=== PATIENT | male | born 1955 | race Caucasian/White ===

== ENCOUNTER 2020-03-19 14:00 | Outpatient (REF) | payer OTHER, SELFPAY | END 2020-03-19 14:01 | disposition home or self-care (01) | LOC: HO.LAB 14:00 | PROVIDERS: Visit Provider Internal Medicine | DX: Z20.828 Contact with and (suspected) exposure to other viral communicable diseases (principal) | CPT/HCPCS: 36415; C9803; U0003 ==

== ENCOUNTER 2020-05-12 10:53 | Outpatient (REF) | payer OTHER, SELFPAY | END 2020-05-12 10:54 | disposition home or self-care (01) | LOC: HO.LAB 10:53 | PROVIDERS: Visit Provider Internal Medicine | DX: Z20.822 Contact with and (suspected) exposure to COVID-19 (principal) | CPT/HCPCS: 36415; C9803; U0003; U0005 ==

== ENCOUNTER 2020-12-01 16:18 | Emergency (ER) | payer OTHER, SELFPAY ==
--- NOTE | ~2020-12-01 | XR_ITS ---
EXAMINATION: SINGLE VIEW CHEST, LEFT SHOULDER CLINICAL INFORMATION: Chest and shoulder pain COMPARISON: Chest radiograph 10/24/2019 TECHNIQUE: Single view chest, 5 views left shoulder FINDINGS: No significant abnormalities seen involving the heart, lungs, mediastinum or bony thorax. No significant bone joint or soft tissue abnormality seen involving the left shoulder. XR/XR shoulder LT min 2V IMPRESSION: Negative exams
--- NOTE | ~2020-12-01 | XR_ITS ---
EXAMINATION: SINGLE VIEW CHEST, LEFT SHOULDER CLINICAL INFORMATION: Chest and shoulder pain COMPARISON: Chest radiograph 10/24/2019 TECHNIQUE: Single view chest, 5 views left shoulder FINDINGS: No significant abnormalities seen involving the heart, lungs, mediastinum or bony thorax. No significant bone joint or soft tissue abnormality seen involving the left shoulder. XR/XR chest 1V IMPRESSION: Negative exams
[2020-12-01 17:42] VITALS: BP 149/75; PULSE 56; RESP 18; TEMP 36.8; O2SAT 99; BMI 25.8
[2020-12-01 17:59] LABS: MANUAL DIFF FLAG NO
[2020-12-01 18:01] LABS: Basophils Absolute Auto 0.1 X10*3/uL (0.0-0.2); Basophils Percent Auto 0.6 % (0-2); Eosinophils Absolute Auto 0.2 X10*3/uL (0.0-0.4); Eosinophils Percent Auto 2.3 % (0-4); Hematocrit 44.2 % (42-52); Hemoglobin 14.7 g/dl (14.0-18.0); Imm Gran Abs Auto 0.01 X10*3/uL (0.00-0.03); Imm Gran Pct Auto 0.1 % (0.0-0.4); Lymphocytes Absolute Auto 2.3 X10*3/uL (1.2-4.9); Lymphocytes Percent Auto 29.5 % (20-40); Mean Corpuscular HGB Conc 33.3 g/dl (31.0-36.0); Mean Corpuscular Hemoglobin 29.5 pg (27.0-33.0); Mean Corpuscular Volume 88.8 fL (80-98); Mean Platelet Volume 9.3 fL (9.4-12.4); Monocytes Absolute Auto 0.7 X10*3/uL (0.1-1.2); Monocytes Percent Auto 8.8 % (2-11); Neutrophils Absolute Auto 4.6 X10*3/uL (2.0-8.3); Neutrophils Percent Auto 58.7 % (45-73); Platelet Count 217 X10*3/uL (160-400); Red Blood Count 4.98 X10*6/uL (4.60-5.80); White Blood Count 7.8 X10*3/uL (4.8-10.8)
[2020-12-01 18:22] LABS: Anion Gap 11 (12-20); Blood Urea Nitrogen 14 mg/dL (9-16); Calcium 8.9 mg/dL (8.4-10.2); Carbon Dioxide 24 mmol/L (22-29); Chloride 104 mmol/L (96-108); Creatinine Clr Calc Pharmacy 51.3; Estimated Glomerular Filt Rate 57; Glucose Random 326 mg/dL (60-115); Potassium 4.2 mmol/L (3.3-5.1); Sodium 135 mmol/L (135-145)
--- NOTE | 2020-12-01 19:22 | ECG_ITS ---
Test Reason : DIZZY Blood Pressure : / mmHG Vent. Rate : 050 BPM Atrial Rate : 050 BPM P-R Int : 182 ms QRS Dur : 090 ms QT Int : 468 ms P-R-T Axes : 066 -19 041 degrees QTc Int : 426 ms Sinus bradycardia Otherwise normal ECG When compared with ECG of 24-OCT-2019 11:13, No significant change was found Referred By: Jose Finch Electronically Signed By:MARIALUISA STOREY
[2020-12-01 20:14] LABS: Troponin-I High Sensitivity 9.9 ng/L (<3.5-35.0)
--- NOTE | 2020-12-01 22:47 | ED_ITS ---
HPI - Eye Problem General Chief complaint: Eye Problems Stated complaint: eye swelling, CP Time Seen by Provider: 12/01/20 19:09 Source: patient Mode of arrival: ambulatory Limitations: no limitations History of Present Illness HPI Narrative: Patient presents to ED for multiple complaints. Patient presents to ED for left upper eyelid pain with redness and swelling for the past 4 days.. Patient denies any blurry vision or eye pain. Patient denies any recent trauma to the eye, change in vision, loss of vision. Patient has secondary complaint is a mild neck pain radiating to left shoulder and chest for the past 4 days. Patient denies crushing like chest pain or shortness of breath. Patient came to ED to be evaluated due to cardiac history. Related Data Previous Rx's Medication Instructions Recorded amoxicillin 875 mg-potassium 1 tab PO Q12H 10 Days #20 tab 12/01/20 clavulanate 125 mg tablet (Augmentin) sulfamethoxazole 800 1 tab PO Q12H 5 Days #10 tab 12/01/20 mg-trimethoprim 160 mg tablet (Bactrim DS) Allergies Allergy/AdvReac Type Severity Reaction Status Date / Time No Known Allergies Allergy Verified 12/01/20 17:41 Review of Systems Constitutional: Constitutional: Reports as per HPI and Reports no additional constitutional complaints Eyes: Eyes: Reports as per HPI and Reports no additional eye complaints Comments: left upper eyelid pain Cardiovascular: Cardiovascular: Reports as per HPI and Reports no additional c ardiovascular complaints Respiratory: Respiratory: Reports as per HPI and Reports no additional respiratory complaints Gastrointestinal: Gastrointestinal: Reports as per HPI and Reports no add itional gastrointestinal complaints Genitourinary: Genitourinary: Reports no additional male genitourinary complaints and Reports as per HPI Musculoskeletal: Musculoskeletal: Reports no additional musculoskeletal complaints and Reports as per HPI Integumentary/Breasts: Skin/Breast: Reports system reviewed and no additional complaints, except as docu and Reports as per HPI Neurologic: Reports system reviewed and no additional complaints, except as documented and Reports as per HPI Psychiatric: Psychiatric: Reports no additional psychiatric complaints and Reports as per HPI [facility] Social History Social History Advance Directives: No Advance Directives Information Provided: Yes Physical Exam Vital Signs: Vital Signs: Last Vital Signs Temp 98.2 F 12/01/20 17:42 Pulse 56 12/01/20 17:42 Resp 18 12/01/20 17:42 BP 149/75 H 12/01/20 17:42 Pulse Ox 99 12/01/20 17:42 Body Mass Index 25.8 Const: General: cooperative, healthy appearing, comfortable, no acute distress, well developed and alert Orientation/consciousness: patient oriented x3 HENMT: Head: Yes normal to inspection, Yes No palpable skull fracture present, Yes normocephalic, Yes atraumatic and No abrasion Ears: hearing grossly normal bilaterally, external ears normal, TM's normal bilaterally, EAC's normal, mastoids normal and no periauricular adenopathy Eyes: Eyes/upper lids images: 1. Left upper eyelid redness and swelling. Negative for style on palpation or observtion. Negative for photophobia. Negative for erythema, conjunctiva, or sclera. Neck: Neck: Yes normal visual inspection, Yes full ROM, Yes no ly mphadenopathy, Yes no meningeal signs, Yes trachea midline, Yes supple and No tender Chest: Chest palpation & inspection: normal inspection of the chest and normal palpation of entire chest wall Resp: Effort & Inspection: normal respiratory effort and able to speak in complete sentences Auscultation: clear to auscultation bilaterally Cardio: Jugular venous distension: no JVD Heart sounds: S1 normal heart sound present and S2 normal heart sound present GI: Inspection: Yes normal to inspection and No abdominal wall ecchymosis Palpation (GI): Soft to palpation, not firm, nontender, no guarding and not rigid : General: No CVA tenderness and Yes no CVA tenderness Back/Spine/Pelvis: Back: no CVA tenderness, No CVA tenderness and No back tenderness Skin: General skin exam: no rashes or lesions noted and elasticity normal Neuro: General: patient oriented x3, gait normal, no meningeal signs and CN's II-XI intact bilaterally Cranial nerves: Yes CN's II-XII intact bilaterally Extrem: General: Yes normal to inspection and Yes full ROM Psych: Appearance: grossly normal, well kempt and not disheveled Course Course Course Narrative: Eye exam indicate preseptal cellulitis. Patient denies any discomfort. Patient states chest pain only a 1. Due to age will do cardiac evaluation. Reevaluation(s) Reevaluation #1: EKG negative STEMI. First troponin negative chest x-ray shoulder x-ray normal. Time: 19:47 Reevaluation #2: Second troponin negative. Not suspecting PE. Patient denies any pleuritic chest pain or history of blood clots. Patient is not tachycardic, hypoxic, or hypotensive. Patient denies any recent travel, recent surgery, recent trauma or MDM - Eye Problem MDM Narrative Medical decision making narrative: Preseptal cellulitis Lab Data Result diagrams: 12/01/20 17:52 12/01/20 17:52 Labs: Lab Results 12/01/20 12/01/20 12/01/20 Range/Units 17:52 17:52 19:47 WBC 7.8 (4.8-10.8) X10*3/uL RBC 4.98 (4.60-5.80) X10*6/uL Hgb 14.7 (14.0-18.0) g/dl Hct 44.2 (42-52) % MCV 88.8 (80-98) fL MCH 29.5 (27.0-33.0) pg MCHC 33.3 (31.0-36.0) g/dl RDW 12.0 (11.0-16.0) % Plt Count 217 (160-400) X10*3/uL MPV 9.3 L (9.4-12.4) fL Immature Gran % (Auto) 0.1 (0.0-0.4) % Neut % (Auto) 58.7 (45-73) % Lymph % (Auto) 29.5 (20-40) % [place] % (Auto) 8.8 (2-11) % Eos % (Auto) 2.3 (0-4) % Baso % (Auto) 0.6 (0-2) % Lymph # (Auto) 2.3 (1.2-4.9) X10*3/uL [place] # (Auto) 0.7 (0.1-1.2) X10*3/uL Eos # (Auto) 0.2 (0.0-0.4) X10*3/uL Baso # (Auto) 0.1 (0.0-0.2) X10*3/uL Abs Immat Gran (auto) 0.01 (0.00-0.03) X10*3/uL Absolute Neuts (auto) 4.6 (2.0-8.3) X10*3/uL Absolute Nucleated RBC 0.000 (0.0-0.012) X10*3/uL Nucleated RBC % (auto) 0.0 (0.0-0.2) /100WBC Sodium 135 (135-145) mmol/L Potassium 4.2 (3.3-5.1) mmol/L Chloride 104 (96-108) mmol/L Carbon Dioxide 24 (22-29) mmol/L Anion Gap 11 L (12-20) BUN 14 (9-16) mg/dL Creatinine 1.26 (0.5-1.4) mg/dL Estim Creat Clear Calc 51.3 Estimated GFR 57 Random Glucose 326 H (60-115) mg/dL Calcium 8.9 (8.4-10.2) mg/dL Troponin I High Sens 9.9 (<3.5-35.0) ng/L 12/01/20 Range/Units 21:59 WBC (4.8-10.8) X10*3/uL RBC (4.60-5.80) X10*6/uL Hgb (14.0-18.0) g/dl Hct (42-52) % MCV (80-98) fL MCH (27.0-33.0) pg MCHC (31.0-36.0) g/dl RDW (11.0-16.0) % Plt Count (160-400) X10*3/uL MPV (9.4-12.4) fL Immature Gran % (Auto) (0.0-0.4) % Neut % (Auto) (45-73) % Lymph % (Auto) (20-40) % [place] % (Auto) (2-11) % Eos % (Auto) (0-4) % Baso % (Auto) (0-2) % Lymph # (Auto) (1.2-4.9) X10*3/uL [place] # (Auto) (0.1-1.2) X10*3/uL Eos # (Auto) (0.0-0.4) X10*3/uL Baso # (Auto) (0.0-0.2) X10*3/uL Abs Immat Gran (auto) (0.00-0.03) X10*3/uL Absolute Neuts (auto) (2.0-8.3) X10*3/uL Absolute Nucleated RBC (0.0-0.012) X10*3/uL Nucleated RBC % (auto) (0.0-0.2) /100WBC Sodium (135-145) mmol/L Potassium (3.3-5.1) mmol/L Chloride (96-108) mmol/L Carbon Dioxide (22-29) mmol/L Anion Gap (12-20) BUN (9-16) mg/dL Creatinine (0.5-1.4) mg/dL Estim Creat Clear Calc Estimated GFR Random Glucose (60-115) mg/dL Calcium (8.4-10.2) mg/dL Troponin I High Sens 10.0 (<3.5-35.0) ng/L ECG Data Interpretation: Sinus bradycardia. Ventricular rate 50. DC interval 182. QRS 90. QTC 426. Negative STEMI Discharge Plan Discharge Clinical Impression: Periorbital cellulitis, Chest pain, atypical Patient Disposition: Home, Self-Care Instructions: Chest Pain (ED), Periorbital Cellulitis in Adults (ED) Additional Instructions: Chaves an?lisis de kaya y chaves electrocardiograma resultaron negativos para un ataque card?aco. Se le khadra? de haley con antibi?ticos orales para la infecci?n del p?rpado. Regrese al servicio de urgencias por cualquier inflamaci?n de las extremidades inferiores, tos con kaya, dificultad para respirar, empeoramiento del dolor en el pecho o cambio o p?rdida de la visi?n ocular, aumento de la hi nchaz?n del p?rpado, empeoramiento del dolor ocular o cualquier otro s?ntoma preocupante. Kath un seguimiento con chaves proveedor de atenci?n primaria. Se recomienda ye compresa tibia 4 veces al d?a chino 15 minutos en el p?rpado. Prescriptions: New amoxicillin-pot clavulanate [Augmentin] 875-125 mg tablet 1 tab PO Q12H 10 Days Qty: 20 RF: 0 sulfamethoxazole-trimethoprim [Bactrim DS] 800-160 mg tablet 1 tab PO Q12H 5 Days Qty: 10 RF: 0 Interventions: ED Discharge Assessment Last Done: 12/01/20 23:49 Discharge Date/Time: 12/01/20 23:51 Print Language: Honduran
== END 2020-12-01 23:51 | disposition home or self-care (01) ==
PROVIDERS: Physician Assistant; Emergency Provider Emergency Medicine Emergency Medical Services; PCP Internal Medicine Geriatric Medicine
DX: L03.213 Periorbital cellulitis (principal); R07.89 Other chest pain; M25.512 Pain in left shoulder; M25.511 Pain in right shoulder; Z79.899 Other long term (current) drug therapy
CPT/HCPCS: 36415; 71045; 73030; 80048; 84484; 85025; 93005; 99283; 99284

== ENCOUNTER 2021-02-06 12:56 | Inpatient (IN) | payer OTHER, SELFPAY ==
--- NOTE | 2021-02-06 | ECG_ITS ---
Test Reason : CP Blood Pressure : / mmHG Vent. Rate : 096 BPM Atrial Rate : 096 BPM P-R Int : 132 ms QRS Dur : 126 ms QT Int : 364 ms P-R-T Axes : 055 -64 054 degrees QTc Int : 459 ms Normal sinus rhythm Right bundle branch block Left anterior fascicular block Bifascicular block Minimal voltage criteria for LVH, may be normal variant ( R in aVL ) Abnormal ECG When compared with ECG of 01-DEC-2020 19:53, Vent. rate has increased BY 46 BPM (RBBB and left anterior fascicular block) is now Present Referred By: Generic ED Physician Electronically Signed By:ALLY CHOUDHURY MD
--- NOTE | ~2021-02-06 | CT_ITS ---
EXAMINATION: CTA CHEST. CT ABDOMEN AND PELVIS WITH CONTRAST. CLINICAL INFORMATION: Chest pain and back pain. COMPARISON: None TECHNIQUE: 5 mm thin axial and reformatted 3 minutes thin sagittal and coronal images of chest were obtained with IV 85 mL Omnipaque 350 contrast. Subsequently axial 5 minutes thin and reformatted 3 minutes thin sagittal coronal images of abdomen pelvis were obtained. DLP 727. FINDINGS: Chest: There is good opacification of pulmonary artery and its branches without any intraluminal filling defect. The thoracic aorta is of normal caliber. No aneurysm or dissection seen.Central trachea and the bronchi are widely patent. No abnormal size mediastinal mass or lymph nodes seen. The heart size is normal no pedicle effusion seen. There are coronary artery calcifications present. The lungs are well-expanded and clear of acute process. There is no evidence of pleural effusion or thickening. No calcified pleural plaques seen. There are no abnormal axillary lymph nodes. The chest wall is is unremarkable. Abdomen and pelvis: The liver is normal size, shape and contour and density. No focal lesion or intrahepatic ductal dilatation seen. The gallbladder is unremarkable. Visualized spleen, pancreas and bilateral adrenal glands unremarkable. Both kidneys nephrograms are slightly striated with bilateral perinephric stranding no radiopaque calculi or hydronephrosis seen. Suspect partially exophytic lower pole right renal cysts. There is scattered stool, gas seen throughout the colon without distention. The small bowel loops are normal caliber. Appendix is not seen well. The stomach is nondistended. Suspect small hiatal hernia. There is mild rectal wall thickening. The sigmoid colon is unremarkable. The abdominal aorta is of normal caliber with mild sclerotic calcification. No retrobulbar lymph nodes or mass seen. The abdominal wall appears unremarkable. Imaging through the pelvis reveals enlarged prostate gland with a soft tissue mass of the base of bladder likely extension of prostate gland. There is a small urinary bladder caliber with diffuse bladder wall thickening measuring 9 mm. There is no free fluid. No abnormal pelvic or inguinal lymph nodes seen. No gross bony abnormality. CT/CT angio chest PE protocol IMPRESSION: No evidence of PE. No evidence aortic dissection or aneurysm. The lungs are clear. The moderate-sized mass at the base of the urinary bladder likely extension of enlarged prostate gland. There is diffuse bladder wall thickening with a small caliber bladder. There are striated bilateral nephrograms suspicious for inflammatory process. No infarct or acute nephronia seen. There is moderate bilateral perinephric stranding. Recommend urology consult. There is nonspecific mild rectal wall thickening.
[2021-02-06 13:03] VITALS: BP 157/83; PULSE 101; RESP 18; TEMP 38.6; O2SAT 98; BMI 26.6
--- NOTE | 2021-02-06 13:34 | ED.FEVER ---
HPI - Fever General Chief Complaint: General Medical Stated Complaint: chest pain headache body aches fever Time Seen by Provider: 02/06/21 13:21 Source: patient and family Mode of arrival: ambulatory Limitations: no limitations History of Present Illness MD elicited complaint: fever, malaise and weakness Pertinent past history: diabetes Onset (ago): day(s) (2) Exacerbating factors: nothing Relieving factors: nothing Associated symptoms: chills, myalgias, headache, chest pain, abdominal pain, nausea, dysuria and back/flank pain Treatments prior to arrival fever: none Related Data Home Medications Medication Instructions Recorded Confirmed amlodipine 5 mg tablet 1 tab PO DAILY 02/06/21 02/06/21 aspirin 81 mg chewable tablet 1 tab PO DAILY 02/06/21 02/06/21 atorvastatin 80 mg tablet 1 tab PO BEDTIME 02/06/21 02/06/21 ezetimibe 10 mg tablet 1 tab PO DAILY 02/06/21 02/06/21 glipizide 5 mg tablet 1 tab PO BID 02/06/21 02/06/21 insulin glargine 100 unit/mL (3 50 unit SUBCUT BEDTIME 02/06/21 02/06/21 mL) subcutaneous pen (Lantus Solostar U-100 Insulin) lisinopril 5 mg tablet 1 tab PO DAILY 02/06/21 02/06/21 metformin 500 mg tablet 2 tab PO BID 02/06/21 02/06/21 metoprolol succinate 25 mg 1 tab PO DAILY 02/06/21 02/06/21 tablet,extended release 24 hr ticagrelor 90 mg tablet (Brilinta) 1 tab PO BID 02/06/21 02/06/21 Allergies Allergy/AdvReac Type Severity Reaction Status Date / Time No Known Allergies Allergy Verified 12/01/20 17:41 Review of Systems Review of Systems: Constitutional : No Weight loss, pos Fever, pos Chills, pos Fatigue, pos Malaise ENT/Mouth : No sore throat, No Rhinorrhea Eyes: No Eye Pain, No Swelling, No Redness Cardiovascular : pos Chest Pain, No SOB, No Dyspnea on Exertion, No Orthopnea, No Edema, No Palpitations Respiratory : No Cough, No Sputum, No Wheezing Gastrointestinal :pos Nausea, No Vomiting, No Diarrhea, No Constipation, pos abdominal Pain, No Hematochezia, No Melena Genitourinary : pos Dysuria, pos Urinary Frequency, No Hematuria, Musculoskeletal : No joint pain, pos Myalgias, No Joint Swelling Skin : No Skin Lesions, No rash Neuro : pos Weakness, No Numbness, No Dizziness, No Headache Psych : No Anxiety/Panic, No Depression Heme/Lymph: No Bruising, No Bleeding,No Lymphadenopathy Endocrine : No Polyuria, No Polydipsia All other systems reviewed and are negative [facility] Past Medical History Attestation statement: The following information was validated with the patient. Medical History (Updated 02/06/21 @ 15:58 by Yasemin Wahl DO) CAD (coronary artery disease) Diabetes Social History Social History Alcohol intake: current Alcohol intake frequency: holidays/special occasions only Patient Tobacco Use Status: Never used Tobacco Use of substances other than those prescribed or required for medical reasons: No Advance Directives: No Advance Directives Information Provided: No Physical Exam Vital Signs: Vital Signs: Last Vital Signs Temp 101.4 F H 02/06/21 13:03 Pulse 96 02/06/21 14:00 Resp 21 H 02/06/21 14:00 BP 144/79 H 02/06/21 14:00 Pulse Ox 99 02/06/21 14:00 Body Mass Index 26.6 Appearance: Alert. Oriented X3. No acute distress. Eyes: Pupils equal, round and reactive to light. ENT: Pharynx normal. Neck: Normal inspection. Neck supple. CVS: tachcyardic heart rate and rhythm. Pulses normal. Respiratory: No respiratory distress. Breath sounds normal. Abdomen: Soft and nontender. Skin: Skin warm and dry. Normal skin color. Normal skin turgor. Extremities: No lower extremity edema. No calf ttp Neuro: Oriented X 3. No motor deficit. No sensory deficit. Course Course Course Narrative: given findings admit for IV antibiotics for pyelonephritis/prostatitis MDM - Fever MDM Narrative Medical decision making narrative: 65 yo male with hx of DM, CAD s/p PCI here with c/o fevers, chest pain, myalgia, L flank pain and dysuria he has a new RBBB at this time possible UTI/stone vs PE/pneumonia will obtain labs, cultures, tylenol, IVF, empiric levofloxacin - CTA given chest pain and new onset RBBB and CT scan for L flank pain to evaluate for stone. Dispo per results and findings. Lab Data Result diagrams: 02/06/21 13:33 02/06/21 13:33 Labs: Lab Results 02/06/21 02/06/21 02/06/21 Range/Units 13:33 13:33 13:33 WBC 18.6 H (4.8-10.8) X10*3/uL RBC 5.20 (4.60-5.80) X10*6/uL Hgb 15.5 (14.0-18.0) g/dl Hct 45.2 (42.0-52.0) % MCV 86.9 (80.0-98.0) fL MCH 29.8 (27.0-33.0) pg MCHC 34.3 (31.0-36.0) g/dl RDW 13.2 (11.0-16.0) % Plt Count 137 L (160-400) X10*3/uL MPV 9.8 (9.4-12.4) fL Immature Gran % (Auto) 1.8 H (0.0-0.4) % Neut % (Auto) 92.2 H (45-73) % Lymph % (Auto) 2.5 L (20-40) % [place] % (Auto) 3.2 (2-11) % Eos % (Auto) 0.1 (0-4) % Baso % (Auto) 0.2 (0-2) % Lymph # (Auto) 0.5 L (1.2-4.9) X10*3/uL [place] # (Auto) 0.6 (0.1-1.2) X10*3/uL Eos # (Auto) 0.0 (0.0-0.4) X10*3/uL Baso # (Auto) 0.0 (0.0-0.2) X10*3/uL Abs Immat Gran (auto) 0.34 H (0.00-0.03) X10*3/uL Absolute Neuts (auto) 17.1 H (2.0-8.3) x10*3/uL Absolute Nucleated RBC 0.000 (0.0-0.012) X10*3/uL Nucleated RBC % (auto) 0.0 (0.0-0.2) /100WBC Smear Tech's Comments VERIFIED PT (9.9-13.0) SEC INR (0.9-1.1) APTT (24.1-38.0) SEC Sodium 131 L (135-145) mmol/L Potassium 3.9 (3.3-5.1) mmol/L Chloride 96 (96-108) mmol/L Carbon Dioxide 23 (22-29) mmol/L Anion Gap 16 (12-20) BUN 19 H (9-16) mg/dL Creatinine 1.42 H (0.5-1.4) mg/dL Estim Creat Clear Calc 43.9 Estimated GFR 50 Random Glucose 195 H D (60-115) mg/dL Lactic Acid 3.1 H* (0.5-2.0) mmol/L Calcium 9.1 (8.4-10.2) mg/dL Magnesium 1.6 (1.6-2.6) mg/dL Total Bilirubin 1.7 H (0.0-1.0) mg/dL Direct Bilirubin 0.8 H (0.0-0.5) mg/dL AST 16 (5-37) U/L ALT 19 (0-40) U/L Alkaline Phosphatase 88 (39-117) U/L Troponin I High Sens (<3.5-35.0) ng/L Total Protein 7.4 (6.5-8.0) g/dL Albumin 4.3 (3.5-5.0) g/dL Lipase 30 (8-78) U/L Urine Color Urine Appearance Urine pH (5.0-8.0) Ur Specific [place] (1.005-1.025) Urine Protein (NEG-TRACE) MG/DL Urine Glucose (UA) (NEG) MG/DL Urine Ketones (NEG) MG/DL Urine Blood (NEG) Urine Nitrite (NEG) Ur Leukocyte Esterase (NEG) Urine RBC (0) /HPF Urine WBC (0-4) /HPF Ur Squamous Epith Cells /LPF Urine Bacteria /LPF COVID-19 (SEBAS) (Negative) COVID-19 Clin Com 02/06/21 02/06/21 02/06/21 Range/Units 13:33 13:34 13:34 WBC (4.8-10.8) X10*3/uL RBC (4.60-5.80) X10*6/uL Hgb (14.0-18.0) g/dl Hct (42.0-52.0) % MCV (80.0-98.0) fL MCH (27.0-33.0) pg MCHC (31.0-36.0) g/dl RDW (11.0-16.0) % Plt Count (160-400) X10*3/uL MPV (9.4-12.4) fL Immature Gran % (Auto) (0.0-0.4) % Neut % (Auto) (45-73) % Lymph % (Auto) (20-40) % [place] % (Auto) (2-11) % Eos % (Auto) (0-4) % Baso % (Auto) (0-2) % Lymph # (Auto) (1.2-4.9) X10*3/uL [place] # (Auto) (0.1-1.2) X10*3/uL Eos # (Auto) (0.0-0.4) X10*3/uL Baso # (Auto) (0.0-0.2) X10*3/uL Abs Immat Gran (auto) (0.00-0.03) X10*3/uL Absolute Neuts (auto) (2.0-8.3) x10*3/uL Absolute Nucleated RBC (0.0-0.012) X10*3/uL Nucleated RBC % (auto) (0.0-0.2) /100WBC Smear Tech's Comments PT 18.8 H (9.9-13.0) SEC INR 1.6 H (0.9-1.1) APTT 32.1 (24.1-38.0) SEC Sodium (135-145) mmol/L Potassium (3.3-5.1) mmol/L Chloride (96-108) mmol/L Carbon Dioxide (22-29) mmol/L Anion Gap (12-20) BUN (9-16) mg/dL Creatinine (0.5-1.4) mg/dL Estim Creat Clear Calc Estimated GFR Random Glucose (60-115) mg/dL Lactic Acid (0.5-2.0) mmol/L Calcium (8.4-10.2) mg/dL Magnesium (1.6-2.6) mg/dL Total Bilirubin (0.0-1.0) mg/dL Direct Bilirubin (0.0-0.5) mg/dL AST (5-37) U/L ALT (0-40) U/L Alkaline Phosphatase (39-117) U/L Troponin I High Sens 15.0 (<3.5-35.0) ng/L Total Protein (6.5-8.0) g/dL Albumin (3.5-5.0) g/dL Lipase (8-78) U/L Urine Color Urine Appearance Urine pH (5.0-8.0) Ur Specific [place] (1.005-1.025) Urine Protein (NEG-TRACE) MG/DL Urine Glucose (UA) (NEG) MG/DL Urine Ketones (NEG) MG/DL Urine Blood (NEG) Urine Nitrite (NEG) Ur Leukocyte Esterase (NEG) Urine RBC (0) /HPF Urine WBC (0-4) /HPF Ur Squamous Epith Cells /LPF Urine Bacteria /LPF COVID-19 (SEBAS) Negative (Negative) COVID-19 Clin Com See Note 02/06/21 Range/Units 14:03 WBC (4.8-10.8) X10*3/uL RBC (4.60-5.80) X10*6/uL Hgb (14.0-18.0) g/dl Hct (42.0-52.0) % MCV (80.0-98.0) fL MCH (27.0-33.0) pg MCHC (31.0-36.0) g/dl RDW (11.0-16.0) % Plt Count (160-400) X10*3/uL MPV (9.4-12.4) fL Immature Gran % (Auto) (0.0-0.4) % Neut % (Auto) (45-73) % Lymph % (Auto) (20-40) % [place] % (Auto) (2-11) % Eos % (Auto) (0-4) % Baso % (Auto) (0-2) % Lymph # (Auto) (1.2-4.9) X10*3/uL [place] # (Auto) (0.1-1.2) X10*3/uL Eos # (Auto) (0.0-0.4) X10*3/uL Baso # (Auto) (0.0-0.2) X10*3/uL Abs Immat Gran (auto) (0.00-0.03) X10*3/uL Absolute Neuts (auto) (2.0-8.3) x10*3/uL Absolute Nucleated RBC (0.0-0.012) X10*3/uL Nucleated RBC % (auto) (0.0-0.2) /100WBC Smear Tech's Comments PT (9.9-13.0) SEC INR (0.9-1.1) APTT (24.1-38.0) SEC Sodium (135-145) mmol/L Potassium (3.3-5.1) mmol/L Chloride (96-108) mmol/L Carbon Dioxide (22-29) mmol/L Anion Gap (12-20) BUN (9-16) mg/dL Creatinine (0.5-1.4) mg/dL Estim Creat Clear Calc Estimated GFR Random Glucose (60-115) mg/dL Lactic Acid (0.5-2.0) mmol/L Calcium (8.4-10.2) mg/dL Magnesium (1.6-2.6) mg/dL Total Bilirubin (0.0-1.0) mg/dL Direct Bilirubin (0.0-0.5) mg/dL AST (5-37) U/L ALT (0-40) U/L Alkaline Phosphatase (39-117) U/L Troponin I High Sens (<3.5-35.0) ng/L Total Protein (6.5-8.0) g/dL Albumin (3.5-5.0) g/dL Lipase (8-78) U/L Urine Color YELLOW Urine Appearance HAZY Urine pH 6.0 (5.0-8.0) Ur Specific [place] 1.020 (1.005-1.025) Urine Protein 2+ H (NEG-TRACE) MG/DL Urine Glucose (UA) 100 H (NEG) MG/DL Urine Ketones 5 (NEG) MG/DL Urine Blood 1+ H (NEG) Urine Nitrite NEG (NEG) Ur Leukocyte Esterase TRACE H (NEG) Urine RBC 10-14 H (0) /HPF Urine WBC 15-29 H (0-4) /HPF Ur Squamous Epith Cells 1+ /LPF Urine Bacteria TRACE /LPF COVID-19 (SEBAS) (Negative) COVID-19 Clin Com ECG Data ECG #1: Attestation: I personally reviewed and interpreted this ECG as follows: ECG interpretation date: 02/06/21 ECG interpretation time: 13:45 Interpretation: Rate: 96 Rhythm: NSR [place]: left , LVH Normal P waves. Normal RASHID. RBBB ST T wave : nonspecific no ROGELIO qTC: normal prior studies: changed from prior The study has been interpreted contemporaneously by me. . Critical Care Time Critical Care Time Critical Care Time: Yes Total Critical Care Time: 45 Attestation: 3L of IVF I attest to this time spent taking care of the patient Discharge Plan Discharge Clinical Impression: Acidosis, lactic, Acute pyelonephritis Fever Qualifiers: Fever type: unspecified Qualified Code(s): R50.9 - Fever, unspecified Leukocytosis Qualifiers: Leukocytosis type: unspecified Qualified Code(s): D72.829 - Elevated white blood cell count, unspecified Patient Disposition: Admitted As Inpatient
[2021-02-06] MEDS: 0.9 % Sodium Chloride 1,000 ML 999 ML IVCONT (13:39)
[2021-02-06 13:41] LABS: Basophils Percent Auto 0.2 % (0-2); Eosinophils Percent Auto 0.1 % (0-4); Hematocrit 45.2 % (42.0-52.0); Hemoglobin 15.5 g/dl (14.0-18.0); Imm Gran Abs Auto 0.34 X10*3/uL (0.00-0.03); Imm Gran Pct Auto 1.8 % (0.0-0.4); Lymphocytes Absolute Auto 0.5 X10*3/uL (1.2-4.9); Lymphocytes Percent Auto 2.5 % (20-40); MANUAL DIFF FLAG SCAN; Mean Corpuscular HGB Conc 34.3 g/dl (31.0-36.0); Mean Corpuscular Hemoglobin 29.8 pg (27.0-33.0); Mean Corpuscular Volume 86.9 fL (80.0-98.0); Mean Platelet Volume 9.8 fL (9.4-12.4); Monocytes Absolute Auto 0.6 X10*3/uL (0.1-1.2); Monocytes Percent Auto 3.2 % (2-11); Neutrophils Absolute Auto 17.1 x10*3/uL (2.0-8.3); Neutrophils Percent Auto 92.2 % (45-73); Platelet Count 137 X10*3/uL (160-400); Red Cell Distribution Width 13.2 % (11.0-16.0); SCAN SMEAR FLAG 1; White Blood Count 18.6 X10*3/uL (4.8-10.8)
[2021-02-06] MEDS: Acetaminophen 325 MG TABLET 650 MG PO ×2 (13:45→17:50)
[2021-02-06] MEDS: levoFLOXacin/D5W 500 MG/100 ML PIGGYBACK 100 MG IV (13:45)
[2021-02-06 13:46] LABS: INTERNATIONAL NORM RATIO 1.6 (0.9-1.1); Prothrombin Time 18.8 SEC (9.9-13.0)
[2021-02-06 13:49] LABS: Partial Thromboplastin Time 32.1 SEC (24.1-38.0)
[2021-02-06 13:58] LABS: Alanine Aminotransferase 19 U/L (0-40); Albumin Level 4.3 g/dL (3.5-5.0); Alkaline Phosphatase 88 U/L (39-117); Anion Gap 16 (12-20); Aspartate Amino Transferase 16 U/L (5-37); Bilirubin Direct 0.8 mg/dL (0.0-0.5); Bilirubin Total 1.7 mg/dL (0.0-1.0); Blood Urea Nitrogen 19 mg/dL (9-16); Calcium 9.1 mg/dL (8.4-10.2); Carbon Dioxide 23 mmol/L (22-29); Chloride 96 mmol/L (96-108); Creatinine Clr Calc Pharmacy 43.9; Estimated Glomerular Filt Rate 50; Glucose Random 195 mg/dL (60-115); Lipase 30 U/L (8-78); Magnesium 1.6 mg/dL (1.6-2.6); Potassium 3.9 mmol/L (3.3-5.1); Sodium 131 mmol/L (135-145); Total Protein 7.4 g/dL (6.5-8.0)
[2021-02-06 14:00] VITALS: BP 144/79; PULSE 96; RESP 21; O2SAT 99
[2021-02-06 14:05] LABS: COVID-19 Test Negative (Negative)
[2021-02-06 14:14] LABS: SLIDE REVIEW VERIFIED
[2021-02-06 14:19] LABS: Appearance Urine HAZY; Color Urine YELLOW; Glucose Urine UA 100 MG/DL (NEG); Leukocyte Esterase Urine TRACE (NEG); Nitrite Urine NEG (NEG); UACC Culture Trigger YES; Urine Blood 1+ (NEG); Urine Ketones 5 MG/DL (NEG); Urine Protein 2+ MG/DL (NEG-TRACE)
[2021-02-06 14:25] LABS: Lactic Acid 3.1 mmol/L (0.5-2.0)
[2021-02-06 14:26] LABS: Bacteria Urine TRACE /LPF; Squamous Epithelial Cell Urine 1+ /LPF
[2021-02-06] MEDS: 0.9 % Sodium Chloride 1,000 ML 999 ML IV ×2 (14:33→15:41)
--- NOTE | 2021-02-06 15:02 | PHA.MEDREC ---
Pharmacy Consult ? Medication Reconciliation Pharmacy has completed the medication reconciliation. Per patient and , he is not as adherent as he should be. He does not take his insulin every night which explains the gap in refill history. He should be out of brilinta but he verified he does still take it...sometimes only once a day. Thanks Lazaro Crouch Pharm D
[2021-02-06] MEDS: iohexoL 350 MG/ML 100 ML INFUS..BTL IV (15:12)
[2021-02-06 15:38] LABS: Reflex Lactate? Lactic Acid Added
[2021-02-06 16:13] VITALS: BP 126/63; PULSE 85; RESP 20; TEMP 37.4; O2SAT 99
[2021-02-06 16:22] LABS: ~Lactic Acid-LAB USE ONLY 2.5 mmol/L (0.5-2.0)
--- NOTE | 2021-02-06 16:59 | PM.IMHP ---
History of Present Illness Date of Service: 02/06/21 ( all info gleaned via lang interpreter) 65-year-old male presents 2-3 days of fever, shaking chills and dysuric symptoms. He states this began with mild burning and progressed to the point did he felt he could not empty his bladder. When queried, he states he has never had issues with his prostate or his kidneys. He does complain of headache flank pain and generalized body aches along with his dysuric symptoms. [place] [address], mild hyponatremia and a lactate of 3.1 which trends down to 2.5 with fluids. given IV fluids, Levaquin 500 IV. Admission requested Review of Systems Review of Systems: denies chest pain Denies shortness of breath Denies vomiting diarrhea States shaking chills, headache, diffuse body aches denies STD symptoms/risk PMFSH Medical History CAD (coronary artery disease) Diabetes Social History Alcohol intake: current Alcohol intake frequency: holidays/special occasions only Patient Tobacco Use Status: Never used Tobacco Use of substances other than those prescribed or required for medical reasons: No Advance Directives: No Advance Directives Information Provided: No Meds Allergies Allergy/AdvReac Type Severity Reaction Status Date / Time No Known Allergies Allergy Verified 12/01/20 17:41 Active Medications: Current Medications Amlodipine Besylate (Amlodipine Besylate 5 Mg Tablet) 5 mg PO DAILY REPLACED BY [facility]; Protocol Aspirin (Aspirin 81 Mg Tab.Chew) 81 mg PO DAILY REPLACED BY [facility] Atorvastatin Calcium (Atorvastatin Calcium 80 Mg Tablet) 80 mg PO BEDTIME REPLACED BY [facility] Dextrose (Dextrose 50 % 25 Gm/50 Ml Vial) 25 gm IVPUSH Q15M PRN; Protocol PRN Reason: per Hypoglycemia Standing Ord. Ezetimibe (Ezetimibe 10 Mg Tablet) 10 mg PO DAILY [facility] Glucose (Glucose Gel 15 Gm Gel..Gram.) 15 gm PO Q15M PRN; Protocol PRN Reason: per Hypoglycemia Standing Ord. Insulin Glargine (Insulin Glargine,Hum.Rec.Anlog 100 Unit/Ml 10 Ml Vial) 50 unit SUBCUT BEDTIME [facility] Insulin Human Lispro (Insulin Lispro 100 Unit/Ml 3 Ml Vial) 0 unit SUBCUT QIDACHS [facility]; Protocol Lisinopril (Lisinopril 5 Mg Tablet) 5 mg PO DAILY REPLACED BY [facility]; Protocol Metoprolol Succinate (Metoprolol Succinate Er 25 Mg Tab.Er.24h) 25 mg PO DAILY [facility]; Protocol Pharmacy Consult (Consult Rx Perform Med Rec) 1 each MISCELLANE ONCE PRN PRN Reason: Consult order Sodium Chloride (0.9 % Sodium Chloride Flush 3 Ml Syringe) 3 ml IVFLUSH QSHIFT REPLACED BY [facility] Ticagrelor (Ticagrelor 90 Mg Tablet) 90 mg PO BID REPLACED BY [facility] Home Medications Medication Instructions Recorded Confirmed Last Taken Type amlodipine 5 mg tablet 1 tab PO DAILY 02/06/21 02/06/21 02/06/21 History aspirin 81 mg chewable tablet 1 tab PO DAILY 02/06/21 02/06/21 02/06/21 History atorvastatin 80 mg tablet 1 tab PO BEDTIME 02/06/21 02/06/21 02/05/21 History ezetimibe 10 mg tablet 1 tab PO DAILY 02/06/21 02/06/21 02/06/21 History glipizide 5 mg tablet 1 tab PO BID 02/06/21 02/06/21 02/06/21 History insulin glargine 100 unit/mL (3 50 unit SUBCUT BEDTIME 02/06/21 02/06/21 02/05/21 History mL) subcutaneous pen (Lantus Solostar U-100 Insulin) lisinopril 5 mg tablet 1 tab PO DAILY 02/06/21 02/06/21 02/06/21 History metformin 500 mg tablet 2 tab PO BID 02/06/21 02/06/21 02/06/21 History metoprolol succinate 25 mg 1 tab PO DAILY 02/06/21 02/06/21 02/06/21 History tablet,extended release 24 hr ticagrelor 90 mg tablet (Brilinta) 1 tab PO BID 02/06/21 02/06/21 02/06/21 History Physical Exam Vital Signs and Narrative: Vital Signs: Last Vital Signs Temp 99.3 F 02/06/21 16:13 Pulse 85 02/06/21 16:13 Resp 20 02/06/21 16:13 BP 126/63 02/06/21 16:13 Pulse Ox 99 02/06/21 16:13 Body Mass Index 26.6 Const: Other: ill-appearing no acute distress Resp: Other: clear to auscultation bilaterally no rales rhonchi wheezes Cardio: Other: no S4; positive S1-S2; no S3 murmurs rubs or gallops GI: Other: soft nontender nondistended with normoactive bowel sounds Neuro: Other: cranial nerves 2-12 grossly intact as tested. Motor is 5/5 as tested. Sensation intact. Cognition appropriate Extrem: Other: no edema bilaterally Results Labs CBC and Chem 7: 02/06/21 13:33 02/06/21 13:33 Labs: Laboratory Results - last 24 hr 02/06/21 02/06/21 02/06/21 13:33 13:33 13:33 MCV 86.9 MCH 29.8 MCHC 34.3 RDW 13.2 Plt Count 137 L MPV 9.8 Immature Gran % (Auto) 1.8 H Neut % (Auto) 92.2 H Lymph % (Auto) 2.5 L [place] % (Auto) 3.2 Eos % (Auto) 0.1 Baso % (Auto) 0.2 Lymph # (Auto) 0.5 L [place] # (Auto) 0.6 Eos # (Auto) 0.0 Baso # (Auto) 0.0 Abs Immat Gran (auto) 0.34 H Absolute Neuts (auto) 17.1 H Absolute Nucleated RBC 0.000 Nucleated RBC % (auto) 0.0 Smear Tech's Comments VERIFIED PT INR APTT Anion Gap 16 Estim Creat Clear Calc 43.9 Estimated GFR 50 Random Glucose 195 H D Lactic Acid 3.1 H* Lactic Acid Fup @ 2Hr Calcium 9.1 Magnesium 1.6 Total Bilirubin 1.7 H Direct Bilirubin 0.8 H AST 16 ALT 19 Alkaline Phosphatase 88 Troponin I High Sens Total Protein 7.4 Albumin 4.3 Lipase 30 Urine Color Urine Appearance Urine pH Ur Specific [place] Urine Protein Urine Glucose (UA) Urine Ketones Urine Blood Urine Nitrite Ur Leukocyte Esterase Urine RBC Urine WBC Ur Squamous Epith Cells Urine Bacteria COVID-19 ([facility]) COVID-19 Clin Com 02/06/21 02/06/21 02/06/21 13:33 13:34 13:34 MCV MCH MCHC RDW Plt Count MPV Immature Gran % (Auto) Neut % (Auto) Lymph % (Auto) [place] % (Auto) Eos % (Auto) Baso % (Auto) Lymph # (Auto) [place] # (Auto) Eos # (Auto) Baso # (Auto) Abs Immat Gran (auto) Absolute Neuts (auto) Absolute Nucleated RBC Nucleated RBC % (auto) Smear Tech's Comments PT 18.8 H INR 1.6 H APTT 32.1 Anion Gap Estim Creat Clear Calc Estimated GFR Random Glucose Lactic Acid Lactic Acid Fup @ 2Hr Calcium Magnesium Total Bilirubin Direct Bilirubin AST ALT Alkaline Phosphatase Troponin I High Sens 15.0 Total Protein Albumin Lipase Urine Color Urine Appearance Urine pH Ur Specific [place] Urine Protein Urine Glucose (UA) Urine Ketones Urine Blood Urine Nitrite Ur Leukocyte Esterase Urine RBC Urine WBC Ur Squamous Epith Cells Urine Bacteria COVID-19 ([facility]BAS) Negative COVID-19 Clin Com See Note 02/06/21 02/06/21 14:03 15:38 MCV MCH MCHC RDW Plt Count MPV Immature Gran % (Auto) Neut % (Auto) Lymph % (Auto) [place] % (Auto) Eos % (Auto) Baso % (Auto) Lymph # (Auto) [place] # (Auto) Eos # (Auto) Baso # (Auto) Abs Immat Gran (auto) Absolute Neuts (auto) Absolute Nucleated RBC Nucleated RBC % (auto) Smear Tech's Comments PT INR APTT Anion Gap Estim Creat Clear Calc Estimated GFR Random Glucose Lactic Acid Lactic Acid Fup @ 2Hr 2.5 H* Calcium Magnesium Total Bilirubin Direct Bilirubin AST ALT Alkaline Phosphatase Troponin I High Sens Total Protein Albumin Lipase Urine Color YELLOW Urine Appearance HAZY Urine pH 6.0 Ur Specific [place] 1.020 Urine Protein 2+ H Urine Glucose (UA) 100 H Urine Ketones 5 Urine Blood 1+ H Urine Nitrite NEG Ur Leukocyte Esterase TRACE H Urine RBC 10-14 H Urine WBC 15-29 H Ur Squamous Epith Cells 1+ Urine Bacteria TRACE COVID-19 ([facility]BAS) COVID-19 Clin Com Imaging Radiologist's Impressions: Impressions Chest CTA 02/06/21 13:22 IMPRESSION: No evidence of PE. No evidence aortic dissection or aneurysm. The lungs are clear. The moderate-sized mass at the base of the urinary bladder likely extension of enlarged prostate gland. There is diffuse bladder wall thickening with a small caliber bladder. There are striated bilateral nephrograms suspicious for inflammatory process. No infarct or acute nephronia seen. There is moderate bilateral perinephric stranding. Recommend urology consult. There is nonspecific mild rectal wall thickening. Abdomen/Pelvis CT 02/06/21 13:38 IMPRESSION: No evidence of PE. No evidence aortic dissection or aneurysm. The lungs are clear. The moderate-sized mass at the base of the urinary bladder likely extension of enlarged prostate gland. There is diffuse bladder wall thickening with a small caliber bladder. There are striated bilateral nephrograms suspicious for inflammatory process. No infarct or acute nephronia seen. There is moderate bilateral perinephric stranding. Recommend urology consult. There is nonspecific mild rectal wall thickening. Assessment and Plan (1) Acute prostatitis: Status: Acute (2) Fever: Qualifiers: Fever type: unspecified Qualified Code(s): R50.9 - Fever, unspecified Status: Acute (3) Leukocytosis: Qualifiers: Leukocytosis type: unspecified Qualified Code(s): D72.829 - Elevated white blood cell count, unspecified Status: Acute 65 yo male with hx of DM, CAD s/p PCI here with c/o fevers, myalgias, L flank pain and dysuria. Workup in ER consistent with acute pyelonephritis plus-minus prostatitis 1. Acute pyelonephritis/prostatitis Given Levaquin 500 mg IV in the ER; will continue same as good penetration to the prostate.. good concentration in urine Blood and urine culture sent; adjust therapies based on forthcoming clinical data 2. Type 2 diabetes Will hold glipizide and metformin at this time; cover with sliding scale Add back therapies when p.o. intake is verified 3.CAD Will continue Brilinta, Zetia, Lipitor, as per outpatient dosing 4. Hypertension Will hold lisinopril and metformin over night. Add back if appropriate in a.m. 5.Elevated lactic acid In backdrop of metformin and fever. Does not meet sepsis criteria full code Quality Stroke Does the patient have a stroke diagnosis?: No VTE Prior VTE?: No VTE Risk Level:: Medical - moderate - high VTE Device Contraindication: N/A - Device Ordered VTE Drug Contraindication: Treatment Not Indicated
[2021-02-06 17:31] VITALS: BP 171/88; PULSE 109; RESP 22; TEMP 39.6; O2SAT 97
[2021-02-06 17:31] LABS: Glucose, Whole Blood 167 mg/dL (60-115)
[2021-02-06 17:56] LABS: Reflex Lactate? 2 Y
[2021-02-06 18:55] LABS: Glucose, Whole Blood 178 mg/dL (60-115)
[2021-02-06] MEDS: 0.9 % Sodium Chloride 1,000 ML 125 ML IVCONT (19:14)
[2021-02-06 19:15] LABS: ~Lactic Acid-LAB USE ONLY 2.4 mmol/L (0.5-2.0)
[2021-02-06] MEDS: Ibuprofen 600 MG TABLET PO (19:21)
[2021-02-06] MEDS: cefTRIAXone sodium 1 GM in 0.9 % Sodium Chloride 50 ML IV (20:29)
[2021-02-06] MEDS: Atorvastatin Calcium 80 MG TABLET PO (22:07)
[2021-02-06] MEDS: Insulin Glargine,Hum.rec.anlog 100 UNIT/ML 10 ML VIAL 50 UNIT SUBCUT (22:07)
[2021-02-06] MEDS: Ticagrelor 90 MG TABLET PO (22:07)
[2021-02-06 22:35] LABS: Glucose, Whole Blood 241 mg/dL (60-115)
[2021-02-06] MEDS: Insulin Lispro 100 UNIT/ML 3 ML VIAL SUBCUT (22:53)
[2021-02-06 23:11] VITALS: TEMP 37
--- NOTE | 2021-02-07 00:44 | PC.NURSE ---
Per charge nurse, blood cultures came back positive in both sets for Gram positive rods. Hospitalist contacted and given results. No new orders given and he suspect contamination of cultures.
[2021-02-07] MEDS: 0.9 % Sodium Chloride 1,000 ML 125 ML IVCONT ×3 (03:40→22:32)
[2021-02-07 04:26] VITALS: BP 122/65; PULSE 82; RESP 29; O2SAT 97
[2021-02-07 07:13] LABS: Glucose, Whole Blood 114 mg/dL (60-115)
[2021-02-07 08:11] VITALS: BP 162/75; PULSE 97; PULSE 98; RESP 28; TEMP 38.8; O2SAT 99
[2021-02-07] MEDS: lisinopriL 5 MG TABLET PO (08:11)
[2021-02-07] MEDS: amLODIPine Besylate 5 MG TABLET PO (08:11)
[2021-02-07] MEDS: Ezetimibe 10 MG TABLET PO (08:11)
[2021-02-07] MEDS: Metoprolol Succinate ER 25 MG TAB.ER.24H PO (08:12)
[2021-02-07] MEDS: Ticagrelor 90 MG TABLET PO ×2 (08:12→20:49)
[2021-02-07] MEDS: Aspirin 81 MG TAB.CHEW PO (08:12)
[2021-02-07 08:14] LABS: Basophils Percent Auto 0.1 % (0-2); Hematocrit 38.1 % (42.0-52.0); Hemoglobin 12.9 g/dl (14.0-18.0); Imm Gran Pct Auto 1.9 % (0.0-0.4); Lymphocytes Absolute Auto 0.2 X10*3/uL (1.2-4.9); Lymphocytes Percent Auto 1.5 % (20-40); MANUAL DIFF FLAG SCAN; Mean Corpuscular HGB Conc 33.9 g/dl (31.0-36.0); Mean Corpuscular Hemoglobin 29.6 pg (27.0-33.0); Mean Corpuscular Volume 87.4 fL (80.0-98.0); Monocytes Absolute Auto 0.4 X10*3/uL (0.1-1.2); Monocytes Percent Auto 3.5 % (2-11); Neutrophils Absolute Auto 9.6 x10*3/uL (2.0-8.3); Red Blood Count 4.36 X10*6/uL (4.60-5.80); Red Cell Distribution Width 13.2 % (11.0-16.0); SCAN SMEAR FLAG 1; White Blood Count 10.3 X10*3/uL (4.8-10.8)
[2021-02-07 08:33] LABS: Alanine Aminotransferase 16 U/L (0-40); Albumin Level 3.1 g/dL (3.5-5.0); Alkaline Phosphatase 68 U/L (39-117); Anion Gap 14 (12-20); Aspartate Amino Transferase 15 U/L (5-37); Bilirubin Total 0.8 mg/dL (0.0-1.0); Blood Urea Nitrogen 16 mg/dL (9-16); Calcium 7.6 mg/dL (8.4-10.2); Carbon Dioxide 17 mmol/L (22-29); Chloride 107 mmol/L (96-108); Creatinine Clr Calc Pharmacy 63.6; Estimated Glomerular Filt Rate > 60; Glucose Fasting 130 mg/dL (60-99); Potassium 3.2 mmol/L (3.3-5.1); Sodium 135 mmol/L (135-145); Total Protein 5.6 g/dL (6.5-8.0)
[2021-02-07 08:34] LABS: Platelet Count 99 X10*3/uL (160-400)
[2021-02-07 08:35] LABS: Mean Platelet Volume 9.7 fL (9.4-12.4); SLIDE REVIEW VERIFIED
--- NOTE | 2021-02-07 08:51 | PC.NURSE ---
critical result of +blood cultures relayed to
--- NOTE | 2021-02-07 10:44 | PC.NURSE ---
pt diaphoretic, temp taken: 98.7 degrees, hr 96. denies any pain unless he is urinating. will continue to monitor.
[2021-02-07 10:46] VITALS: PULSE 96; RESP 20; TEMP 37.1
[2021-02-07 11:58] LABS: Glucose, Whole Blood 165 mg/dL (60-115)
[2021-02-07] MEDS: Insulin Lispro 100 UNIT/ML 3 ML VIAL SUBCUT ×2 (12:04→20:48)
--- NOTE | 2021-02-07 13:40 | MHC.CM.PN ---
Met with pt to discuss d/c planning: pt resides with emmett Rodriguez who assists pt as needed. He is independent with all care needs: no barriers to care/ no services: PCP is Dr. Lin from the [facility]. HCP requested: Jennifer to transport home.
[2021-02-07] MEDS: Acetaminophen 325 MG TABLET 650 MG PO (15:05)
[2021-02-07] MEDS: Ibuprofen 600 MG TABLET PO (15:05)
[2021-02-07 16:51] LABS: Glucose, Whole Blood 146 mg/dL (60-115)
--- NOTE | 2021-02-07 17:59 | HO.PM.IMPN ---
Subjective Subjective Date of Service: 02/07/21 Interval History: feels better this a.m.. Appetite has returned Review of Systems denies chest pain Denies shortness of breath Denies nausea vomiting diarrhea Physical Exam Vital Signs: Vital Signs: Last Vital Signs Temp 98.7 F 02/07/21 10:46 Pulse 96 02/07/21 10:46 Resp 20 02/07/21 10:46 BP 162/75 H 02/07/21 08:11 Pulse Ox 99 02/07/21 08:11 Body Mass Index 26.6 Const: Other: comfortable. . .no acute distress Resp: Other: clear to auscultation bilaterally no rales rhonchi wheezes Cardio: Other: no S4; positive S1-S2; no S3 murmurs rubs or gallops GI: Other: soft nontender nondistended with normoactive bowel sounds Neuro: Other: cranial nerves 2-12 grossly intact as tested. Motor is 5/5 as tested. Sensation intact. Cognition appropriate Extrem: Other: no edema bilaterally Objective Data Active Medications Acetaminophen (Acetaminophen 325 Mg Tablet) 650 mg PO Q4H PRN PRN Reason: Fever Last Admin: 02/07/21 15:05 Dose: 650 mg Documented by: JAME Amlodipine Besylate (Amlodipine Besylate 5 Mg Tablet) 5 mg PO DAILY [facility]; Protocol Last Admin: 02/07/21 08:11 Dose: 5 mg Documented by: JAME Aspirin (Aspirin 81 Mg Tab.Chew) 81 mg PO DAILY [facility] Last Admin: 02/07/21 08:12 Dose: 81 mg Documented by: JAME Atorvastatin Calcium (Atorvastatin Calcium 80 Mg Tablet) 80 mg PO BEDTIME [facility] Last Admin: 02/06/21 22:07 Dose: 80 mg Documented by: RAMU Dextrose (Dextrose 50 % 25 Gm/50 Ml Vial) 25 gm IVPUSH Q15M PRN; Protocol PRN Reason: per Hypoglycemia Standing Ord. Ezetimibe (Ezetimibe 10 Mg Tablet) 10 mg PO DAILY [facility] Last Admin: 02/07/21 08:11 Dose: 10 mg Documented by: JAME Glucose (Glucose Gel 15 Gm Gel..Gram.) 15 gm PO Q15M PRN; Protocol PRN Reason: per Hypoglycemia Standing Ord. Sodium Chloride (Ns) 1,000 mls @ 125 mls/hr IVCONT .Q8H [facility] Last Admin: 02/07/21 12:05 Dose: 125 mls/hr Documented by: JAME Ceftriaxone Sodium 1 gm/ (Sodium Chloride) 50 mls @ 100 mls/hr IV Q24H [facility] Last Infusion: 02/06/21 22:09 Dose: 0 mls/hr Documented by: RAMU Ibuprofen (Ibuprofen 600 Mg Tablet) 600 mg PO Q6H PRN PRN Reason: Fever Last Admin: 02/07/21 15:05 Dose: 600 mg Documented by: JAME Insulin Glargine (Insulin Glargine,Hum.Rec.Anlog 100 Unit/Ml 10 Ml Vial) 50 unit SUBCUT BEDTIME [facility] Last Admin: 02/06/21 22:07 Dose: 50 unit Documented by: RAMU Insulin Human Lispro (Insulin Lispro 100 Unit/Ml 3 Ml Vial) 0 unit SUBCUT QIDACHS [facility]; Protocol Last Admin: 02/07/21 16:48 Dose: Not Given Documented by: JAME Non-Admin Reason: No Insulin Coverage Lisinopril (Lisinopril 5 Mg Tablet) 5 mg PO DAILY [facility]; Protocol Last Admin: 02/07/21 08:11 Dose: 5 mg Documented by: JAME Metoprolol Succinate (Metoprolol Succinate Er 25 Mg Tab.Er.24h) 25 mg PO DAILY [facility]; Protocol Last Admin: 02/07/21 08:12 Dose: 25 mg Documented by: JAME Pharmacy Consult (Consult Rx Perform Med Rec) 1 each MISCELLANE ONCE PRN PRN Reason: Consult order Sodium Chloride (0.9 % Sodium Chloride Flush 3 Ml Syringe) [facility] Last Admin: 02/07/21 16:22 Dose: Not Given Documented by: JAME Non-Admin Reason: IV Running Sodium Chloride (0.9 % Sodium Chloride Flush 3 Ml Syringe) 3 ml IVFLUSH [facility] Last Admin: 02/07/21 16:22 Dose: Not Given Documented by: JAME Non-Admin Reason: IV Running Ticagrelor (Ticagrelor 90 Mg Tablet) 90 mg PO BID [facility] Last Admin: 02/07/21 08:12 Dose: 90 mg Documented by: JAME Labs CBC & Chem 7: 02/07/21 08:00 02/07/21 08:00 Labs: Laboratory Results - last 24 hr 02/06/21 02/06/21 02/06/21 13:33 18:45 18:51 WBC 18.6 H MCV MCH MCHC RDW Plt Count MPV Immature Gran % (Auto) Neut % (Auto) Lymph % (Auto) [place] % (Auto) Eos % (Auto) Baso % (Auto) Lymph # (Auto) [place] # (Auto) Eos # (Auto) Baso # (Auto) Abs Immat Gran (auto) Absolute Neuts (auto) Absolute Nucleated RBC Nucleated RBC % (auto) Smear Tech's Comments Anion Gap Estim Creat Clear Calc Estimated GFR POC Glucose 178 H Fasting Glucose Lactic Acid Fup @ 4Hr 2.4 H* Calcium Total Bilirubin AST ALT Alkaline Phosphatase Total Protein Albumin 02/06/21 02/07/21 02/07/21 22:32 07:09 08:00 WBC 10.3 MCV 87.4 MCH 29.6 MCHC 33.9 RDW 13.2 Plt Count 99 L D MPV 9.7 Immature Gran % (Auto) 1.9 H Neut % (Auto) 93.0 H Lymph % (Auto) 1.5 L [place] % (Auto) 3.5 Eos % (Auto) 0.0 Baso % (Auto) 0.1 Lymph # (Auto) 0.2 L [place] # (Auto) 0.4 Eos # (Auto) 0.0 Baso # (Auto) 0.0 Abs Immat Gran (auto) 0.20 H Absolute Neuts (auto) 9.6 H Absolute Nucleated RBC 0.000 Nucleated RBC % (auto) 0.0 Smear Tech's Comments VERIFIED Anion Gap Estim Creat Clear Calc Estimated GFR POC Glucose 241 H 114 Fasting Glucose Lactic Acid Fup @ 4Hr Calcium Total Bilirubin AST ALT Alkaline Phosphatase Total Protein Albumin 02/07/21 02/07/21 02/07/21 08:00 11:55 16:47 WBC MCV MCH MCHC RDW Plt Count MPV Immature Gran % (Auto) Neut % (Auto) Lymph % (Auto) [place] % (Auto) Eos % (Auto) Baso % (Auto) Lymph # (Auto) [place] # (Auto) Eos # (Auto) Baso # (Auto) Abs Immat Gran (auto) Absolute Neuts (auto) Absolute Nucleated RBC Nucleated RBC % (auto) Smear Tech's Comments Anion Gap 14 Estim Creat Clear Calc 63.6 Estimated GFR > 60 POC Glucose 165 H 146 H Fasting Glucose 130 H Lactic Acid Fup @ 4Hr Calcium 7.6 L D Total Bilirubin 0.8 AST 15 ALT 16 Alkaline Phosphatase 68 D Total Protein 5.6 L D Albumin 3.1 L D Microbiology Microbiology Results: Microbiology 02/06/21 00:00 Urine Culture - Final Urine clean catch - Urine ferguson top No growth. 02/06/21 13:33 Blood Culture - Preliminary Blood - Venous Prelim: GNR Gram Stain only 02/06/21 13:33 Blood Culture - Preliminary Blood - Venous Prelim: GNR Gram Stain only Assessment and Plan (1) Acute pyelonephritis: Status: Acute (2) Leukocytosis: Status: Acute (3) Fever: Status: Acute Assessment and Plan: 65 yo male with hx of DM, CAD s/p PCI here with c/o fevers, myalgias, L flank pain and dysuria. Workup in ER consistent with acute pyelonephritis plus-minus prostatitis 1. Acute pyelonephritis/prostatitis Given Levaquin 500 mg IV in the ER; will continue same as good penetration to the prostate.. good concentration in urine Ceftriaxone added secondary to persistent fevers and questionable history of STD although patient denies await identification preliminary Gram-negative rods 2. Type 2 diabetes Will hold glipizide and metformin at this time; cover with sliding scale Add back therapies when p.o. intake is verified 3.CAD Will continue Brilinta, Zetia, Lipitor, as per outpatient dosing 4. Hypertension Will hold lisinopril and metformin over night. Add back if appropriate in a.m. full code Quality Stroke Does the patient have a stroke diagnosis?: No VTE Prior VTE?: No VTE Risk Level:: Medical - moderate - high VTE Device Contraindication: N/A - Device Ordered VTE Drug Contraindication: Treatment Not Indicated
[2021-02-07 20:41] LABS: Glucose, Whole Blood 172 mg/dL (60-115)
[2021-02-07] MEDS: cefTRIAXone sodium 1 GM in 0.9 % Sodium Chloride 50 ML IV (20:47)
[2021-02-07] MEDS: Insulin Glargine,Hum.rec.anlog 100 UNIT/ML 10 ML VIAL 50 UNIT SUBCUT (20:48)
[2021-02-07] MEDS: Atorvastatin Calcium 80 MG TABLET PO (20:49)
[2021-02-07 20:58] VITALS: BP 140/78; PULSE 67; RESP 18; O2SAT 99
--- NOTE | 2021-02-07 20:59 | PC.NURSE ---
PT medicated per MAY. This RN waiting for initial bag of NS to infuse before starting the next dose that was due at 1914. PT VSS. PT resting comfortably in bed with no complaints at this time. Awaiting a bed for admission.
[2021-02-08] VITALS (11 sets, daily range): BP systolic 132–160; BP diastolic 72–84; PULSE 64–88; RESP 16–24; TEMP 36.1–38.8; O2SAT 95–99
[2021-02-08] MEDS: 0.9 % Sodium Chloride Flush 3 ML SYRINGE IVFLUSH ×3 (00:36→15:13)
[2021-02-08 03:04] LABS: Glucose, Whole Blood 112 mg/dL (60-115)
--- NOTE | 2021-02-08 05:42 | PC.NURSE ---
PT found sitting on the side of the bed and appearing visibly uncomfortable. This RN called educational sign language interpreter to the room to help speak with PT. PT reported that he is urinating frequently and cannot relax enough to fall asleep. PT also reported that when he tries to urinate he doesn't feel like much is coming out and he has a burning sensation upon urination. PT has been voiding urine into the urinal throughout the night.
[2021-02-08] MEDS: Acetaminophen 325 MG TABLET 650 MG PO ×3 (05:48→19:38)
[2021-02-08 06:36] LABS: Eosinophils Percent Auto 0.1 % (0-4); Hemoglobin 12.2 g/dl (14.0-18.0)
[2021-02-08 06:38] LABS: Basophils Percent Auto 0.1 % (0-2); Hematocrit 35.9 % (42.0-52.0); Imm Gran Abs Auto 0.02 X10*3/uL (0.00-0.03); Imm Gran Pct Auto 0.3 % (0.0-0.4); Lymphocytes Absolute Auto 0.4 X10*3/uL (1.2-4.9); Lymphocytes Percent Auto 5.6 % (20-40); Mean Corpuscular Hemoglobin 29.5 pg (27.0-33.0); Mean Corpuscular Volume 86.9 fL (80.0-98.0); Mean Platelet Volume 10.2 fL (9.4-12.4); Monocytes Absolute Auto 0.5 X10*3/uL (0.1-1.2); Monocytes Percent Auto 7.4 % (2-11); Neutrophils Absolute Auto 5.9 x10*3/uL (2.0-8.3); Neutrophils Percent Auto 86.5 % (45-73); Platelet Count 117 X10*3/uL (160-400); Red Blood Count 4.13 X10*6/uL (4.60-5.80); Red Cell Distribution Width 13.6 % (11.0-16.0); White Blood Count 6.8 X10*3/uL (4.8-10.8)
[2021-02-08] MEDS: 0.9 % Sodium Chloride 1,000 ML 125 ML IVCONT ×2 (06:43→15:10)
[2021-02-08 06:54] LABS: Alanine Aminotransferase 55 U/L (0-40); Albumin Level 3.1 g/dL (3.5-5.0); Alkaline Phosphatase 109 U/L (39-117); Anion Gap 13 (12-20); Aspartate Amino Transferase 60 U/L (5-37); Bilirubin Total 0.8 mg/dL (0.0-1.0); Blood Urea Nitrogen 15 mg/dL (9-16); Calcium 7.7 mg/dL (8.4-10.2); Carbon Dioxide 18 mmol/L (22-29); Chloride 106 mmol/L (96-108); Creatinine Clr Calc Pharmacy 71.6; Estimated Glomerular Filt Rate > 60; Glucose Fasting 110 mg/dL (60-99); Potassium 2.9 mmol/L (3.3-5.1); Sodium 134 mmol/L (135-145); Total Protein 5.5 g/dL (6.5-8.0)
--- NOTE | 2021-02-08 07:48 | P.CDIC_ITS ---
CDI Concurrent Query Documentation Clarification: PHYSICIAN'S DOCUMENTATION REQUEST Date of Query: 02/08/21 0748 Patient Name: Carlos Salgado Admit Date: 02/06/21 Dear Doctor, A review of the medical record indicates additional documentation may be needed. Please review below and update the documentation accordingly. Risk Factors/Clinical Indicators/Treatments WBC 18.6 LA 3.1 HR 28 Temp 101.4 103.2 Abnormal urine results. IV Ceftriaxone, IV fluids. Pyelonephritis/prostatis Please clarify which of the following most accurately describes the above abnormalities: * Sepsis * Systemic manifestations of infection, with 2 or more SIRS criteria which include: -Fever > 100.4F or hypothermia < 96.8 F -Leukocytosis - WBC > 12,000 or leukopenia, WBC < 4,000 or > 10% bands -Tachycardia > 90 beats/minute -Tachypnea - RR > 20 breaths/minute * Indicate the knows or suspected organism * Indicate the known or suspected underlying infection, such as UTI, pneumonia, or cellulitis * Indicate if a suspected bacteria infection of unknown sour * SIRS due to a non-infectious source/infectious source * Indicate the known or suspected etiology * Indicate if there is associated organ dysfunction, such as renal or respiratory failure * Other * Unable to determine Use of terms such as suspected, likely, concern for, or probable (associated with a specific diagnosis that is being evaluated, monitored, or treated as if it exists) are acceptable and can be coded in the inpatient setting, when documented at the time of discharge. Thank you, Isaura Jimenez [facility], CDIS Extension: [phone] Please use your independent medical judgment in providing your response. THIS QUERY IS PART OF THE PERMANENT MEDICAL RECORD Provider Response: Other Other Diagnosis: Sepsis SECONDARY TO PYELONEPHRITIS
[2021-02-08 07:49] LABS: Glucose, Whole Blood 121 mg/dL (60-115)
[2021-02-08] MEDS: Ticagrelor 90 MG TABLET PO ×2 (08:21→22:12)
[2021-02-08] MEDS: amLODIPine Besylate 5 MG TABLET PO (08:22)
[2021-02-08] MEDS: Metoprolol Succinate ER 25 MG TAB.ER.24H PO (08:22)
[2021-02-08] MEDS: Ezetimibe 10 MG TABLET PO (08:22)
[2021-02-08] MEDS: lisinopriL 5 MG TABLET PO (08:23)
[2021-02-08] MEDS: Aspirin 81 MG TAB.CHEW PO (08:23)
[2021-02-08] MEDS: Potassium Chloride ER 20 MEQ TAB.ER.PRT 40 MEQ PO ×2 (09:31→15:11)
--- NOTE | 2021-02-08 11:05 | P.CNUR_ITS ---
History of Present Illness Consult details Consult date: 02/08/21 Narrative: Carlos is a pleasant male. Polish speaker. Admitted to hospital with elevated white count acute prostatitis, malaise, elevated temperature. Started on Levaquin with good response WBC fallen from 17-6.8 Does report weakness of stream prior to admission Would start alpha-jethro to ensure adequate bladder emptying Initial UA showed no bacteria but positive for trace white cells Will need 14 day antibiotic course since has positive blood cultures Gram- negative rods. Review of Systems Constitutional: Constitutional: Denies chills and Denies fever(s) Cardiovascular: Cardiovascular: Reports no additional cardiovascular complaints and Denies syncope Respiratory: Respiratory: Denies cough Gastrointestinal: Gastrointestinal: Denies abdominal pain and Denies heartburn Genitourinary: Genitourinary: Reports as per HPI and Denies change in libido Neurologic: Denies syncope Psychiatric: Psychiatric: Denies change in libido Endocrine: Endocrine: Denies change in libido [facility] Past Medical History Medical History CAD (coronary artery disease) Diabetes Social History Social History Alcohol intake: current Alcohol intake frequency: holidays/special occasions only Patient Tobacco Use Status: Never used Tobacco service: No Current occupational status: disabled Meds Allergies Allergy/AdvReac Type Severity Reaction Status Date / Time No Known Allergies Allergy Verified 12/01/20 17:41 Active Medications: Current Medications Acetaminophen (Acetaminophen 325 Mg Tablet) 650 mg PO Q4H PRN PRN Reason: Fever Last Admin: 02/08/21 05:48 Dose: 650 mg Documented by: Amlodipine Besylate (Amlodipine Besylate 5 Mg Tablet) 5 mg PO DAILY [facility]; Protocol Last Admin: 02/08/21 08:22 Dose: 5 mg Documented by: Aspirin (Aspirin 81 Mg Tab.Chew) 81 mg PO DAILY [facility] Last Admin: 02/08/21 08:23 Dose: 81 mg Documented by: Atorvastatin Calcium (Atorvastatin Calcium 80 Mg Tablet) 80 mg PO BEDTIME [facility] Last Admin: 02/07/21 20:49 Dose: 80 mg Documented by: Dextrose (Dextrose 50 % 25 Gm/50 Ml Vial) 25 gm IVPUSH Q15M PRN; Protocol PRN Reason: per Hypoglycemia Standing Ord. Ezetimibe (Ezetimibe 10 Mg Tablet) 10 mg PO DAILY [facility] Last Admin: 02/08/21 08:22 Dose: 10 mg Documented by: Glucose (Glucose Gel 15 Gm Gel..Gram.) 15 gm PO Q15M PRN; Protocol PRN Reason: per Hypoglycemia Standing Ord. Sodium Chloride (Ns) 1,000 mls @ 125 mls/hr IVCONT .Q8H [facility] Last Admin: 02/08/21 06:43 Dose: 125 mls/hr Documented by: Ceftriaxone Sodium 1 gm/ (Sodium Chloride) 50 mls @ 100 mls/hr IV Q24H [facility] Last Infusion: 02/07/21 22:21 Dose: Infused Documented by: Ibuprofen (Ibuprofen 600 Mg Tablet) 600 mg PO Q6H PRN PRN Reason: Fever Last Admin: 02/07/21 15:05 Dose: 600 mg Documented by: Insulin Glargine (Insulin Glargine,Hum.Rec.Anlog 100 Unit/Ml 10 Ml Vial) 50 unit SUBCUT BEDTIME [facility] Last Admin: 02/07/21 20:48 Dose: 50 unit Documented by: Insulin Human Lispro (Insulin Lispro 100 Unit/Ml 3 Ml Vial) 0 unit SUBCUT QIDACHS [facility]; Protocol Last Admin: 02/08/21 09:20 Dose: Not Given Documented by: Lisinopril (Lisinopril 5 Mg Tablet) 5 mg PO DAILY [facility]; Protocol Last Admin: 02/08/21 08:23 Dose: 5 mg Documented by: Metoprolol Succinate (Metoprolol Succinate Er 25 Mg Tab.Er.24h) 25 mg PO DAILY [facility]; Protocol Last Admin: 02/08/21 08:22 Dose: 25 mg Documented by: Pharmacy Consult (Consult Rx Perform Med Rec) 1 each MISCELLANE ONCE PRN PRN Reason: Consult order Potassium Chloride (Potassium Chloride Er 20 Meq Tab.Er.Prt) 40 meq PO Q6H [facility] Stop: 02/08/21 15:16 Last Admin: 02/08/21 09:31 Dose: 40 meq Documented by: Sodium Chloride (0.9 % Sodium Chloride Flush 3 Ml Syringe) 3 ml IVFLUSH QSHIFT [facility] Last Admin: 02/08/21 08:24 Dose: 3 ml Documented by: Ticagrelor (Ticagrelor 90 Mg Tablet) 90 mg PO BID [facility] Last Admin: 02/08/21 08:21 Dose: 90 mg Documented by: Home Medications Medication Instructions Recorded Confirmed Last Taken Type amlodipine 5 mg tablet 1 tab PO DAILY 02/06/21 02/06/21 02/06/21 History aspirin 81 mg chewable tablet 1 tab PO DAILY 02/06/21 02/06/21 02/06/21 History atorvastatin 80 mg tablet 1 tab PO BEDTIME 02/06/21 02/06/21 02/05/21 History ezetimibe 10 mg tablet 1 tab PO DAILY 02/06/21 02/06/21 02/06/21 History glipizide 5 mg tablet 1 tab PO BID 02/06/21 02/06/21 02/06/21 History insulin glargine 100 unit/mL (3 50 unit SUBCUT BEDTIME 02/06/21 02/06/21 02/05/21 History mL) subcutaneous pen (Lantus Solostar U-100 Insulin) lisinopril 5 mg tablet 1 tab PO DAILY 02/06/21 02/06/21 02/06/21 History metformin 500 mg tablet 2 tab PO BID 02/06/21 02/06/21 02/06/21 History metoprolol succinate 25 mg 1 tab PO DAILY 02/06/21 02/06/21 02/06/21 History tablet,extended release 24 hr ticagrelor 90 mg tablet (Brilinta) 1 tab PO BID 02/06/21 02/06/21 02/06/21 History Physical Exam Vital Signs: Vital Signs: Last Vital Signs Temp 98 F 02/08/21 11:04 Pulse 78 02/08/21 11:04 Resp 18 02/08/21 11:04 BP 157/80 H 02/08/21 11:04 Pulse Ox 99 02/08/21 11:04 Body Mass Index 26.6 Const: General: cooperative, healthy appearing, comfortable and no acute distress Orientation/consciousness: patient oriented x3 HENMT: Face and sinus: Yes normal facial exam Mouth: moist mucous membranes Neck: Neck: Yes normal visual inspection, Yes full ROM and Yes trachea midline Chest: Chest palpation & inspection: normal inspection of the chest Resp: Effort & Inspection: normal respiratory effort, able to speak in complete sentences and no respiratory distress GI: Inspection: Yes normal to inspection Back/Spine/Pelvis: Cervical Spine: normal cervical lordosis Thoracic/Lumbar Spine: thoracic and lumbar spine normal to inspection Skin: General skin exam: no rashes or lesions noted Neuro: General: patient oriented x3, gait normal, tone normal and moves all extremities Extrem: General: Yes normal to inspection and Yes capillary refill normal Results Labs Result diagrams: 02/08/21 06:17 02/08/21 06:17 Labs: Abnormal lab results 02/07/21 02/07/21 02/07/21 Range/Units 11:55 16:47 20:38 RBC (4.60-5.80) X10*6/uL Hgb (14.0-18.0) g/dl Hct (42.0-52.0) % Plt Count (160-400) X10*3/uL Neut % (Auto) (45-73) % Lymph % (Auto) (20-40) % Lymph # (Auto) (1.2-4.9) X10*3/uL Sodium (135-145) mmol/L Potassium (3.3-5.1) mmol/L Carbon Dioxide (22-29) mmol/L POC Glucose 165 H 146 H 172 H (60-115) mg/dL Fasting Glucose (60-99) mg/dL Calcium (8.4-10.2) mg/dL AST (5-37) U/L ALT (0-40) U/L Total Protein (6.5-8.0) g/dL Albumin (3.5-5.0) g/dL 02/08/21 02/08/21 02/08/21 Range/Units 06:17 06:17 07:46 RBC 4.13 L (4.60-5.80) X10*6/uL Hgb 12.2 L (14.0-18.0) g/dl Hct 35.9 L (42.0-52.0) % Plt Count 117 L (160-400) X10*3/uL Neut % (Auto) 86.5 H (45-73) % Lymph % (Auto) 5.6 L (20-40) % Lymph # (Auto) 0.4 L (1.2-4.9) X10*3/uL Sodium 134 L (135-145) mmol/L Potassium 2.9 L (3.3-5.1) mmol/L Carbon Dioxide 18 L (22-29) mmol/L POC Glucose 121 H (60-115) mg/dL Fasting Glucose 110 H (60-99) mg/dL Calcium 7.7 L (8.4-10.2) mg/dL AST 60 H (5-37) U/L ALT 55 H (0-40) U/L Total Protein 5.5 L (6.5-8.0) g/dL Albumin 3.1 L (3.5-5.0) g/dL Short CBC 02/08/21 Range/Units 06:17 WBC 6.8 (4.8-10.8) X10*3/uL Hgb 12.2 L (14.0-18.0) g/dl Hct 35.9 L (42.0-52.0) % Plt Count 117 L (160-400) X10*3/uL BMP 02/08/21 06:17 Sodium 134 L Potassium 2.9 L Chloride 106 Carbon Dioxide 18 L BUN 15 Creatinine 0.87 Calcium 7.7 L Liver Function 02/08/21 Range/Units 06:17 Total Bilirubin 0.8 (0.0-1.0) mg/dL AST 60 H (5-37) U/L ALT 55 H (0-40) U/L Alkaline Phosphatase 109 D (39-117) U/L Albumin 3.1 L (3.5-5.0) g/dL Urine 02/06/21 Range/Units 14:03 Urine Color YELLOW Urine Appearance HAZY Urine pH 6.0 (5.0-8.0) Ur Specific [place] 1.020 (1.005-1.025) Urine Protein 2+ H (NEG-TRACE) MG/DL Urine Glucose (UA) 100 H (NEG) MG/DL All other labs normal. Assessment and Plan (1) Acute prostatitis: Status: Acute Acute prostatitis with good response to on IV antibiotics in setting of Poorly responsive type 2 diabetes requiring insulin and oral medications. Will require 14 days of oral therapy once speciation complete add alpha-jethro Review in 4-6 weeks for BPH symptomatology as outpatient Procedures Date of Service Date of Service: 02/08/21
[2021-02-08 11:19] LABS: Glucose, Whole Blood 167 mg/dL (60-115)
--- NOTE | 2021-02-08 11:28 | HO.PM.IMPN ---
Subjective Subjective Date of Service: 02/08/21 Review of Systems Follow prostatitis /pyelonephritis Lower abdominal pain Frequency and dysuria Denies chest pain, shortness of breath, nausea, vomiting, diarrhea All other systems are reviewed and are negative Physical Exam Vital Signs: Vital Signs: Last Vital Signs Temp 98 F 02/08/21 11:04 Pulse 78 02/08/21 11:04 Resp 18 02/08/21 11:04 BP 157/80 H 02/08/21 11:04 Pulse Ox 99 02/08/21 11:04 Body Mass Index 26.6 Appearing in no acute distress lung sounds are clear to auscultation heart regular rate rhythm, clear S1, S2 positive bowel sounds, abdomen is soft, nontender neuro patient is alert x3, no focal deficits Objective Data Active Medications Acetaminophen (Acetaminophen 325 Mg Tablet) 650 mg PO Q4H PRN PRN Reason: Fever Last Admin: 02/08/21 05:48 Dose: 650 mg Documented by: OSWALDO Amlodipine Besylate (Amlodipine Besylate 5 Mg Tablet) 5 mg PO DAILY COUNT [facility]CLUDES [facility]; Protocol Last Admin: 02/08/21 08:22 Dose: 5 mg Documented by: SHA Aspirin (Aspirin 81 Mg Tab.Chew) 81 mg PO DAILY COUNT [facility]CLUDES [facility] Last Admin: 02/08/21 08:23 Dose: 81 mg Documented by: SHA Atorvastatin Calcium (Atorvastatin Calcium 80 Mg Tablet) 80 mg PO BEDTIME COUNT [facility]CLUDES [facility] Last Admin: 02/07/21 20:49 Dose: 80 mg Documented by: OSWALDO Dextrose (Dextrose 50 % 25 Gm/50 Ml Vial) 25 gm IVPUSH Q15M PRN; Protocol PRN Reason: per Hypoglycemia Standing Ord. Ezetimibe (Ezetimibe 10 Mg Tablet) 10 mg PO DAILY COUNT [facility]CLUDES [facility] Last Admin: 02/08/21 08:22 Dose: 10 mg Documented by: SHA Glucose (Glucose Gel 15 Gm Gel..Gram.) 15 gm PO Q15M PRN; Protocol PRN Reason: per Hypoglycemia Standing Ord. Sodium Chloride (Ns) 1,000 mls @ 125 mls/hr IVCONT .Q8H COUNT [facility]CLUDES [facility] Last Admin: 02/08/21 06:43 Dose: 125 mls/hr Documented by: OSWALDO Ceftriaxone Sodium 1 gm/ (Sodium Chloride) 50 mls @ 100 mls/hr IV Q24H COUNT [facility]CLUDES [facility] Last Infusion: 02/07/21 22:21 Dose: 0 mls/hr Documented by: OSWALDO Ibuprofen (Ibuprofen 600 Mg Tablet) 600 mg PO Q6H PRN PRN Reason: Fever Last Admin: 02/07/21 15:05 Dose: 600 mg Documented by: JAME Insulin Glargine (Insulin Glargine,Hum.Rec.Anlog 100 Unit/Ml 10 Ml Vial) 50 unit SUBCUT BEDTIME COUNT [facility]CLUDES [facility] Last Admin: 02/07/21 20:48 Dose: 50 unit Documented by: OSWALDO Insulin Human Lispro (Insulin Lispro 100 Unit/Ml 3 Ml Vial) 0 unit SUBCUT QIDACHS COUNT INCLUDES THE [facility]; Protocol Last Admin: 02/08/21 09:20 Dose: Not Given Documented by: KATELYN Non-Admin Reason: No Insulin Coverage Lisinopril (Lisinopril 5 Mg Tablet) 5 mg PO DAILY COUNT [facility]CLUDES [facility]; Protocol Last Admin: 02/08/21 08:23 Dose: 5 mg Documented by: SHA Metoprolol Succinate (Metoprolol Succinate Er 25 Mg Tab.Er.24h) 25 mg PO DAILY COUNT [facility]CLUD[facility]; Protocol Last Admin: 02/08/21 08:22 Dose: 25 mg Documented by: SHA Pharmacy Consult (Consult Rx Perform Med Rec) 1 each MISCELLANE ONCE PRN PRN Reason: Consult order Potassium Chloride (Potassium Chloride Er 20 Meq Tab.Er.Prt) 40 meq PO Q6H COUNT [facility]CLUDES [facility] Stop: 02/08/21 15:16 Last Admin: 02/08/21 09:31 Dose: 40 meq Documented by: SHA Sodium Chloride (0.9 % Sodium Chloride Flush 3 Ml Syringe) 3 ml IVFLUSH QSHIFT COUNT [facility]CLUDES [facility] Last Admin: 02/08/21 08:24 Dose: 3 ml Documented by: SHA Tamsulosin HCl (Tamsulosin Hcl 0.4 Mg Capsule) 0.4 mg PO BEDTIME COUNT [facility]CLUDES [facility] Ticagrelor (Ticagrelor 90 Mg Tablet) 90 mg PO BID COUNT [facility]CLUDES [facility] Last Admin: 02/08/21 08:21 Dose: 90 mg Documented by: SHA Labs CBC & Chem 7: 02/08/21 06:17 02/08/21 06:17 Labs: Laboratory Results - last 24 hr 02/07/21 02/07/21 02/07/21 11:55 16:47 20:38 MCV MCH MCHC RDW Plt Count MPV Immature Gran % (Auto) Neut % (Auto) Lymph % (Auto) Clark % (Auto) Eos % (Auto) Baso % (Auto) Lymph # (Auto) Clark # (Auto) Eos # (Auto) Baso # (Auto) Abs Immat Gran (auto) Absolute Neuts (auto) Absolute Nucleated RBC Nucleated RBC % (auto) Anion Gap Estim Creat Clear Calc Estimated GFR POC Glucose 165 H 146 H 172 H Fasting Glucose Calcium Total Bilirubin AST ALT Alkaline Phosphatase Total Protein Albumin 02/08/21 02/08/21 02/08/21 02:59 06:17 06:17 MCV 86.9 MCH 29.5 MCHC 34.0 RDW 13.6 Plt Count 117 L MPV 10.2 Immature Gran % (Auto) 0.3 Neut % (Auto) 86.5 H Lymph % (Auto) 5.6 L Clark % (Auto) 7.4 Eos % (Auto) 0.1 Baso % (Auto) 0.1 Lymph # (Auto) 0.4 L Clark # (Auto) 0.5 Eos # (Auto) 0.0 Baso # (Auto) 0.0 Abs Immat Gran (auto) 0.02 Absolute Neuts (auto) 5.9 Absolute Nucleated RBC 0.000 Nucleated RBC % (auto) 0.0 Anion Gap 13 Estim Creat Clear Calc 71.6 Estimated GFR > 60 POC Glucose 112 Fasting Glucose 110 H Calcium 7.7 L Total Bilirubin 0.8 AST 60 H ALT 55 H Alkaline Phosphatase 109 D Total Protein 5.5 L Albumin 3.1 L 02/08/21 02/08/21 07:46 11:04 MCV MCH MCHC RDW Plt Count MPV Immature Gran % (Auto) Neut % (Auto) Lymph % (Auto) Clark % (Auto) Eos % (Auto) Baso % (Auto) Lymph # (Auto) Clark # (Auto) Eos # (Auto) Baso # (Auto) Abs Immat Gran (auto) Absolute Neuts (auto) Absolute Nucleated RBC Nucleated RBC % (auto) Anion Gap Estim Creat Clear Calc Estimated GFR POC Glucose 121 H 167 H Fasting Glucose Calcium Total Bilirubin AST ALT Alkaline Phosphatase Total Protein Albumin Microbiology Microbiology Results: Microbiology 02/06/21 13:33 Blood Culture - Preliminary Blood - Venous Gram negative ana maria 02/06/21 13:33 Blood Culture - Preliminary Blood - Venous Gram negative ana maria 02/06/21 00:00 Urine Culture - Final Urine clean catch - Urine ferguson top No growth. Assessment and Plan (1) Acute prostatitis: Status: Acute (2) Acute pyelonephritis: Status: Acute (3) Diabetes mellitus: Status: Acute Assessment and Plan: 5 yo male with hx of DM, CAD s/p PCI here with c/o fevers, myalgias, L flank pain and dysuria.? Workup in ER? consistent with acute pyelonephritis plus-minus prostatitis Acute pyelonephritis/prostatitis blood cx showed GNR 2/2 Rocephin ID consult Urology consult having issues urinating, will place anna Hypokalemia Repleted follow BMP Type 2 diabetes sliding scale, ada diet Will hold glipizide and metformin at this time CAD Will?continue Brilinta, Zetia, Lipitor Hypertension Continue lisinopril DVT prophylaxis with SCD boots attending Dr. Caldwell ? Quality Stroke Does the patient have a stroke diagnosis?: No VTE Prior VTE?: No VTE Risk Level:: Medical - moderate - high VTE Device Contraindication: N/A - Device Ordered VTE Drug Contraindication: Treatment Not Indicated
[2021-02-08] MEDS: Insulin Lispro 100 UNIT/ML 3 ML VIAL SUBCUT (11:42)
[2021-02-08] MEDS: oxyCODONE HCl Immed Release 5 MG TABLET PO (12:40)
--- NOTE | 2021-02-08 15:39 | W.PM.IDCN ---
History of Present Illness Data of Consult Service Date: 02/08/21 Requesting physician: Constance Kruger Primary Care Provider: Riley Parker MD HPI Reason for consult: fever and chills,bacteremia He presents with two days fever and chills and malaise. He has negative urine culture. Blood cultures gram negative rods x 2. He has CT abdomen and pelvis perinephric streaking and enlarged prostate He has seen Urology He has QTc of 459. Review of Systems Review of Systems: Yes all other systems are reviewed and are negative [facility] Past Medical History Medical History CAD (coronary artery disease) Diabetes Family History Family history: reviewed and not pertinent Social History Social History Alcohol intake: current Alcohol intake frequency: holidays/special occasions only Patient Tobacco Use Status: Never used Tobacco service: No Current occupational status: disabled Meds Allergies Allergy/AdvReac Type Severity Reaction Status Date / Time No Known Allergies Allergy Verified 12/01/20 17:41 Active Medications: Current Medications Acetaminophen (Acetaminophen 325 Mg Tablet) 650 mg PO Q4H PRN PRN Reason: Fever Last Admin: 02/08/21 11:40 Dose: 650 mg Documented by: Amlodipine Besylate (Amlodipine Besylate 5 Mg Tablet) 5 mg PO DAILY [facility]; Protocol Last Admin: 02/08/21 08:22 Dose: 5 mg Documented by: Aspirin (Aspirin 81 Mg Tab.Chew) 81 mg PO DAILY [facility] Last Admin: 02/08/21 08:23 Dose: 81 mg Documented by: Atorvastatin Calcium (Atorvastatin Calcium 80 Mg Tablet) 80 mg PO BEDTIME [facility] Last Admin: 02/07/21 20:49 Dose: 80 mg Documented by: Dextrose (Dextrose 50 % 25 Gm/50 Ml Vial) 25 gm IVPUSH Q15M PRN; Protocol PRN Reason: per Hypoglycemia Standing Ord. Ezetimibe (Ezetimibe 10 Mg Tablet) 10 mg PO DAILY [facility] Last Admin: 02/08/21 08:22 Dose: 10 mg Documented by: Glucose (Glucose Gel 15 Gm Gel..Gram.) 15 gm PO Q15M PRN; Protocol PRN Reason: per Hypoglycemia Standing Ord. Sodium Chloride (Ns) 1,000 mls @ 125 mls/hr IVCONT .Q8H [facility] Last Admin: 02/08/21 15:10 Dose: 125 mls/hr Documented by: Ceftriaxone Sodium 1 gm/ (Sodium Chloride) 50 mls @ 100 mls/hr IV Q24H [facility] Last Infusion: 02/07/21 22:21 Dose: Infused Documented by: Ibuprofen (Ibuprofen 600 Mg Tablet) 600 mg PO Q6H PRN PRN Reason: Fever Last Admin: 02/07/21 15:05 Dose: 600 mg Documented by: Insulin Glargine (Insulin Glargine,Hum.Rec.Anlog 100 Unit/Ml 10 Ml Vial) 50 unit SUBCUT BEDTIME [facility] Last Admin: 02/07/21 20:48 Dose: 50 unit Documented by: Insulin Human Lispro (Insulin Lispro 100 Unit/Ml 3 Ml Vial) 0 unit SUBCUT QIDACHS [facility]; Protocol Last Admin: 02/08/21 11:42 Dose: 2 unit Documented by: Lisinopril (Lisinopril 5 Mg Tablet) 5 mg PO DAILY [facility]; Protocol Last Admin: 02/08/21 08:23 Dose: 5 mg Documented by: Metoprolol Succinate (Metoprolol Succinate Er 25 Mg Tab.Er.24h) 25 mg PO DAILY [facility]; Protocol Last Admin: 02/08/21 08:22 Dose: 25 mg Documented by: Oxycodone HCl (Oxycodone Hcl Immed Release 5 Mg Tablet) 5 mg PO Q4H PRN PRN Reason: pain Last Admin: 02/08/21 12:40 Dose: 5 mg Documented by: Pharmacy Consult (Consult Rx Perform Med Rec) 1 each MISCELLANE ONCE PRN PRN Reason: Consult order Sodium Chloride (0.9 % Sodium Chloride Flush 3 Ml Syringe) 3 ml IVFLUSH QSHIFT [facility] Last Admin: 02/08/21 15:13 Dose: 3 ml Documented by: Tamsulosin HCl (Tamsulosin Hcl 0.4 Mg Capsule) 0.4 mg PO BEDTIME [facility] Ticagrelor (Ticagrelor 90 Mg Tablet) 90 mg PO BID [facility] Last Admin: 02/08/21 08:21 Dose: 90 mg Documented by: Home Medications Medication Instructions Recorded Confirmed Last Taken Type amlodipine 5 mg tablet 1 tab PO DAILY 02/06/21 02/06/21 02/06/21 History aspirin 81 mg chewable tablet 1 tab PO DAILY 02/06/21 02/06/21 02/06/21 History atorvastatin 80 mg tablet 1 tab PO BEDTIME 02/06/21 02/06/21 02/05/21 History ezetimibe 10 mg tablet 1 tab PO DAILY 02/06/21 02/06/21 02/06/21 History glipizide 5 mg tablet 1 tab PO BID 02/06/21 02/06/21 02/06/21 History insulin glargine 100 unit/mL (3 50 unit SUBCUT BEDTIME 02/06/21 02/06/21 02/05/21 History mL) subcutaneous pen (Lantus Solostar U-100 Insulin) lisinopril 5 mg tablet 1 tab PO DAILY 02/06/21 02/06/21 02/06/21 History metformin 500 mg tablet 2 tab PO BID 02/06/21 02/06/21 02/06/21 History metoprolol succinate 25 mg 1 tab PO DAILY 02/06/21 02/06/21 02/06/21 History tablet,extended release 24 hr ticagrelor 90 mg tablet (Brilinta) 1 tab PO BID 02/06/21 02/06/21 02/06/21 History Physical Exam Vital Signs: Vital Signs: Last Vital Signs Temp 99.4 F 02/08/21 15:33 Pulse 64 02/08/21 15:33 Resp 16 02/08/21 15:33 BP 132/72 02/08/21 15:33 Pulse Ox 96 02/08/21 15:33 Body Mass Index 26.6 Const: General: cooperative Orientation/consciousness: patient oriented x3 Eyes: General: appearance normal, both eyes and all related structures Resp: Effort & Inspection: normal respiratory effort Cardio: Rate: regular rate Rhythm: regular rhythm GI: Palpation (GI): Soft to palpation and nontender Skin: General skin exam: no rashes or lesions noted Neuro: General: patient oriented x3 Cranial nerves: Yes CN's II-XII intact bilaterally Results Labs CBC & Chem 7: 02/08/21 06:17 02/08/21 06:17 Labs: Short CBC 02/08/21 Range/Units 06:17 WBC 6.8 (4.8-10.8) X10*3/uL Hgb 12.2 L (14.0-18.0) g/dl Hct 35.9 L (42.0-52.0) % Plt Count 117 L (160-400) X10*3/uL BMP 02/08/21 06:17 Sodium 134 L Potassium 2.9 L Chloride 106 Carbon Dioxide 18 L BUN 15 Creatinine 0.87 Calcium 7.7 L Liver Function 02/08/21 Range/Units 06:17 Total Bilirubin 0.8 (0.0-1.0) mg/dL AST 60 H (5-37) U/L ALT 55 H (0-40) U/L Alkaline Phosphatase 109 D (39-117) U/L Albumin 3.1 L (3.5-5.0) g/dL Microbiology Microbiology Results: Microbiology 02/06/21 13:33 Blood - Venous Blood Culture - Preliminary Gram negative ana maria 02/06/21 13:33 Blood - Venous Blood Culture - Preliminary Gram negative ana maria 02/06/21 00:00 Urine clean catch - Urine ferguson top Urine Culture - Final No growth. Assessment and Plan (1) Acute prostatitis: Status: Acute He has sepsis with gram negative rods Prostate likely source as well as possible early pyelonephritis He has Vazquez. (2) Fever: Qualifiers: Fever type: unspecified Qualified Code(s): R50.9 - Fever, unspecified Status: Acute (3) Leukocytosis: Qualifiers: Leukocytosis type: unspecified Qualified Code(s): D72.829 - Elevated white blood cell count, unspecified Status: Acute Would continue Ceftriaxone Await cultures. 28 days favor Ceftin or Levaquin (although QTc level slightly prolonged) cover prostate. F/U Urology
[2021-02-08 16:34] LABS: Glucose, Whole Blood 92 mg/dL (60-115)
[2021-02-08] MEDS: Morphine Sulfate 2 MG/ML CARTRIDGE IVPUSH (17:15)
[2021-02-08] MEDS: cefTRIAXone sodium 1 GM in 0.9 % Sodium Chloride 50 ML IV (19:38)
[2021-02-08 20:18] LABS: Glucose, Whole Blood 110 mg/dL (60-115)
[2021-02-08 21:16] LABS: Lactic Acid 1.2 mmol/L (0.5-2.0)
[2021-02-08] MEDS: Atorvastatin Calcium 80 MG TABLET PO (22:12)
[2021-02-08] MEDS: Tamsulosin HCL 0.4 MG CAPSULE PO (22:12)
[2021-02-09] VITALS (9 sets, daily range): BP systolic 112–146; BP diastolic 67–77; PULSE 66–77; RESP 16–20; TEMP 36.5–37.3; O2SAT 96–98
[2021-02-09] MEDS: 0.9 % Sodium Chloride 1,000 ML 125 ML IVCONT ×2 (00:36→12:01)
[2021-02-09] MEDS: Ibuprofen 600 MG TABLET PO (04:12)
[2021-02-09 05:57] LABS: Basophils Percent Auto 0.4 % (0-2); Eosinophils Absolute Auto 0.1 X10*3/uL (0.0-0.4); Eosinophils Percent Auto 1.9 % (0-4); Hematocrit 36.1 % (42.0-52.0); Hemoglobin 12.7 g/dl (14.0-18.0); Imm Gran Abs Auto 0.01 X10*3/uL (0.00-0.03); Imm Gran Pct Auto 0.2 % (0.0-0.4); Lymphocytes Absolute Auto 0.7 X10*3/uL (1.2-4.9); Lymphocytes Percent Auto 13.9 % (20-40); MANUAL DIFF FLAG SCAN; Mean Corpuscular HGB Conc 35.2 g/dl (31.0-36.0); Mean Corpuscular Hemoglobin 29.8 pg (27.0-33.0); Mean Corpuscular Volume 84.7 fL (80.0-98.0); Mean Platelet Volume 10.2 fL (9.4-12.4); Monocytes Absolute Auto 0.7 X10*3/uL (0.1-1.2); Monocytes Percent Auto 14.1 % (2-11); Neutrophils Absolute Auto 3.2 x10*3/uL (2.0-8.3); Neutrophils Percent Auto 69.5 % (45-73); Platelet Count 119 X10*3/uL (160-400); Red Blood Count 4.26 X10*6/uL (4.60-5.80); Red Cell Distribution Width 13.4 % (11.0-16.0); SCAN SMEAR FLAG 1; White Blood Count 4.7 X10*3/uL (4.8-10.8)
[2021-02-09 06:34] LABS: Alanine Aminotransferase 229 U/L (0-40); Alkaline Phosphatase 210 U/L (39-117); Anion Gap 12 (12-20); Aspartate Amino Transferase 195 U/L (5-37); Bilirubin Total 0.8 mg/dL (0.0-1.0); Blood Urea Nitrogen 13 mg/dL (9-16); Calcium 7.6 mg/dL (8.4-10.2); Carbon Dioxide 17 mmol/L (22-29); Chloride 105 mmol/L (96-108); Creatinine Clr Calc Pharmacy 70.8; Estimated Glomerular Filt Rate > 60; Glucose Fasting 93 mg/dL (60-99); Potassium 3.4 mmol/L (3.3-5.1); Sodium 131 mmol/L (135-145); Total Protein 5.5 g/dL (6.5-8.0)
[2021-02-09 06:47] LABS: SLIDE REVIEW VERIFIED
[2021-02-09 07:27] LABS: Glucose, Whole Blood 92 mg/dL (60-115)
[2021-02-09] MEDS: Metoprolol Succinate ER 25 MG TAB.ER.24H PO (09:17)
[2021-02-09] MEDS: 0.9 % Sodium Chloride Flush 3 ML SYRINGE IVFLUSH ×3 (09:17→19:54)
[2021-02-09] MEDS: amLODIPine Besylate 5 MG TABLET PO (09:18)
[2021-02-09] MEDS: Ezetimibe 10 MG TABLET PO (09:18)
[2021-02-09] MEDS: Aspirin 81 MG TAB.CHEW PO (09:18)
[2021-02-09] MEDS: Ticagrelor 90 MG TABLET PO ×2 (09:18→19:58)
[2021-02-09] MEDS: lisinopriL 5 MG TABLET PO (09:19)
[2021-02-09 11:24] LABS: Glucose, Whole Blood 201 mg/dL (60-115)
[2021-02-09] MEDS: Insulin Lispro 100 UNIT/ML 3 ML VIAL SUBCUT ×2 (12:00→17:07)
--- NOTE | 2021-02-09 14:03 | HO.PM.IMPN ---
Subjective Subjective Date of Service: 02/09/21 Review of Systems Followup prostatitis/pyelonephritis Lower abdominal pain is much better Denies nausea, vomiting, diarrhea All other systems are reviewed and are negative Physical Exam Vital Signs: Vital Signs: Last Vital Signs Temp 97.7 F 02/09/21 11:48 Pulse 67 02/09/21 11:48 Resp 18 02/09/21 11:48 BP 125/67 02/09/21 11:48 Pulse Ox 98 02/09/21 11:48 Body Mass Index 26.6 Appearing in no acute distress lung sounds are clear to auscultation heart regular rate rhythm, clear S1, S2 positive bowel sounds, abdomen is soft, nontender neuro patient is alert x3, no focal deficits Objective Data Active Medications Acetaminophen (Acetaminophen 325 Mg Tablet) 650 mg PO Q4H PRN PRN Reason: Fever Last Admin: 02/08/21 19:38 Dose: 650 mg Documented by: EMILIA Amlodipine Besylate (Amlodipine Besylate 5 Mg Tablet) 5 mg PO DAILY [facility]; Protocol Last Admin: 02/09/21 09:18 Dose: 5 mg Documented by: SHA Aspirin (Aspirin 81 Mg Tab.Chew) 81 mg PO DAILY [facility] Last Admin: 02/09/21 09:18 Dose: 81 mg Documented by: SHA Atorvastatin Calcium (Atorvastatin Calcium 80 Mg Tablet) 80 mg PO BEDTIME [facility] Last Admin: 02/08/21 22:12 Dose: 80 mg Documented by: EMILIA Dextrose (Dextrose 50 % 25 Gm/50 Ml Vial) 25 gm IVPUSH Q15M PRN; Protocol PRN Reason: per Hypoglycemia Standing Ord. Ezetimibe (Ezetimibe 10 Mg Tablet) 10 mg PO DAILY [facility] Last Admin: 02/09/21 09:18 Dose: 10 mg Documented by: SHA Glucose (Glucose Gel 15 Gm Gel..Gram.) 15 gm PO Q15M PRN; Protocol PRN Reason: per Hypoglycemia Standing Ord. Sodium Chloride (Ns) 1,000 mls @ 125 mls/hr IVCONT .Q8H [facility] Last Admin: 02/09/21 12:01 Dose: 125 mls/hr Documented by: SHA Ceftriaxone Sodium 1 gm/ (Sodium Chloride) 50 mls @ 100 mls/hr IV Q24H [facility] Last Infusion: 02/08/21 22:17 Dose: 0 mls/hr Documented by: EMILIA Ibuprofen (Ibuprofen 600 Mg Tablet) 600 mg PO Q6H PRN PRN Reason: Fever Last Admin: 02/09/21 04:12 Dose: 600 mg Documented by: EMILIA Insulin Glargine (Insulin Glargine,Hum.Rec.Anlog 100 Unit/Ml 10 Ml Vial) 50 unit SUBCUT BEDTIME [facility] Last Admin: 02/08/21 21:34 Dose: Not Given Documented by: EMILIA Non-Admin Reason: No Insulin Coverage Insulin Human Lispro (Insulin Lispro 100 Unit/Ml 3 Ml Vial) 0 unit SUBCUT QIDACHS [facility]; Protocol Last Admin: 02/09/21 12:00 Dose: 4 unit Documented by: SHA Lisinopril (Lisinopril 5 Mg Tablet) 5 mg PO DAILY [facility]; Protocol Last Admin: 02/09/21 09:19 Dose: 5 mg Documented by: SHA Metoprolol Succinate (Metoprolol Succinate Er 25 Mg Tab.Er.24h) 25 mg PO DAILY [facility]; Protocol Last Admin: 02/09/21 09:17 Dose: 25 mg Documented by: SHA Morphine Sulfate (Morphine Sulfate 2 Mg/Ml Cartridge) 2 mg IVPUSH Q4H PRN; Protocol PRN Reason: Pain, Mild (Pain Scale 1-3) Last Admin: 02/08/21 17:15 Dose: 2 mg Documented by: SHA Oxycodone HCl (Oxycodone Hcl Immed Release 5 Mg Tablet) 5 mg PO Q4H PRN PRN Reason: pain Last Admin: 02/08/21 12:40 Dose: 5 mg Documented by: SHA Pharmacy Consult (Consult Rx Perform Med Rec) 1 each MISCELLANE ONCE PRN PRN Reason: Consult order Sodium Chloride (0.9 % Sodium Chloride Flush 3 Ml Syringe) 3 ml IVFLUSH QSHIFT [facility] Last Admin: 02/09/21 09:17 Dose: 3 ml Documented by: SHA Tamsulosin HCl (Tamsulosin Hcl 0.4 Mg Capsule) 0.4 mg PO BEDTIME [facility] Last Admin: 02/08/21 22:12 Dose: 0.4 mg Documented by: EMILIA Ticagrelor (Ticagrelor 90 Mg Tablet) 90 mg PO BID [facility] Last Admin: 02/09/21 09:18 Dose: 90 mg Documented by: SHA Labs CBC & Chem 7: 02/09/21 05:15 02/09/21 05:15 Labs: Laboratory Results - last 24 hr 02/08/21 02/08/21 02/08/21 16:27 20:09 20:50 MCV MCH MCHC RDW Plt Count MPV Immature Gran % (Auto) Neut % (Auto) Lymph % (Auto) Rush % (Auto) Eos % (Auto) Baso % (Auto) Lymph # (Auto) Rush # (Auto) Eos # (Auto) Baso # (Auto) Abs Immat Gran (auto) Absolute Neuts (auto) Absolute Nucleated RBC Nucleated RBC % (auto) Smear Tech's Comments Anion Gap Estim Creat Clear Calc Estimated GFR POC Glucose 92 110 Fasting Glucose Lactic Acid 1.2 Calcium Total Bilirubin AST ALT Alkaline Phosphatase Total Protein Albumin 02/09/21 02/09/21 02/09/21 05:15 05:15 07:22 MCV 84.7 MCH 29.8 MCHC 35.2 RDW 13.4 Plt Count 119 L MPV 10.2 Immature Gran % (Auto) 0.2 Neut % (Auto) 69.5 Lymph % (Auto) 13.9 L Rush % (Auto) 14.1 H Eos % (Auto) 1.9 Baso % (Auto) 0.4 Lymph # (Auto) 0.7 L Rush # (Auto) 0.7 Eos # (Auto) 0.1 Baso # (Auto) 0.0 Abs Immat Gran (auto) 0.01 Absolute Neuts (auto) 3.2 Absolute Nucleated RBC 0.000 Nucleated RBC % (auto) 0.0 Smear Tech's Comments VERIFIED Anion Gap 12 Estim Creat Clear Calc 70.8 Estimated GFR > 60 POC Glucose 92 Fasting Glucose 93 Lactic Acid Calcium 7.6 L Total Bilirubin 0.8 AST 195 H ALT 229 H Alkaline Phosphatase 210 H D Total Protein 5.5 L Albumin 3.0 L 02/09/21 11:20 MCV MCH MCHC RDW Plt Count MPV Immature Gran % (Auto) Neut % (Auto) Lymph % (Auto) Rush % (Auto) Eos % (Auto) Baso % (Auto) Lymph # (Auto) Rush # (Auto) Eos # (Auto) Baso # (Auto) Abs Immat Gran (auto) Absolute Neuts (auto) Absolute Nucleated RBC Nucleated RBC % (auto) Smear Tech's Comments Anion Gap Estim Creat Clear Calc Estimated GFR POC Glucose 201 H Fasting Glucose Lactic Acid Calcium Total Bilirubin AST ALT Alkaline Phosphatase Total Protein Albumin Microbiology Microbiology Results: Microbiology 02/06/21 13:33 Blood Culture - Final Blood - Venous Enterobacter aerogenes 02/06/21 13:33 Blood Culture - Final Blood - Venous Enterobacter aerogenes Assessment and Plan (1) Acute pyelonephritis: Status: Acute (2) Acute prostatitis: Status: Acute (3) Diabetes mellitus: Status: Acute (4) Transaminitis: Status: Acute (5) Hyponatremia: Status: Acute Assessment and Plan: 65 yo male with hx of DM, CAD s/p PCI here with c/o fevers, myalgias, L flank pain and dysuria.? Workup in ER? consistent with acute pyelonephritis plus-minus prostatitis Acute pyelonephritis/prostatitis blood cx showed Enterobacter aerogenes, susceptible to Rocephin Rocephin ID recommended 20 days of oral Ceftin or Levaquin however patient's QTC is mildly elevated consider Ceftin Urology following, will leave Vazquez catheter in for discharge and he will need to follow up with Dr. Nino Villatoro. Increased elevation in liver enzymes Recheck LFTs in the morning Check BNP to rule out heart failure (hepatic congestion) from IV fluids Hyponatremia. Likely from IV fluids stop Fluids Follow BMP closely Hypokalemia. Resolved Repleted follow BMP Type 2 diabetes sliding scale, ada diet Will hold glipizide and metformin at this time CAD Will?continue Brilinta, Zetia, Lipitor Hypertension Continue lisinopril DISPO Home tomorrow if medically stable DVT prophylaxis with SCD boots attending Dr. Caldwell ? Quality Stroke Does the patient have a stroke diagnosis?: No VTE Prior VTE?: No VTE Risk Level:: Medical - moderate - high VTE Device Contraindication: N/A - Device Ordered VTE Drug Contraindication: Treatment Not Indicated
[2021-02-09 16:15] LABS: Glucose, Whole Blood 201 mg/dL (60-115)
[2021-02-09] MEDS: Acetaminophen 325 MG TABLET 650 MG PO (17:14)
[2021-02-09 19:35] LABS: Glucose, Whole Blood 148 mg/dL (60-115)
[2021-02-09] MEDS: cefTRIAXone sodium 1 GM in 0.9 % Sodium Chloride 50 ML IV (19:52)
[2021-02-09] MEDS: Insulin Glargine,Hum.rec.anlog 100 UNIT/ML 10 ML VIAL 50 UNIT SUBCUT (19:57)
[2021-02-09] MEDS: Tamsulosin HCL 0.4 MG CAPSULE PO (19:58)
[2021-02-09] MEDS: Atorvastatin Calcium 80 MG TABLET PO (19:58)
[2021-02-10 03:35] VITALS: BP 138/75; PULSE 75; RESP 18; TEMP 36.6; O2SAT 98
[2021-02-10 06:46] LABS: B Type Natriuretic Peptide 48 pg/mL (<100)
[2021-02-10 07:10] LABS: Basophils Percent Auto 0.5 % (0-2); Eosinophils Absolute Auto 0.1 X10*3/uL (0.0-0.4); Eosinophils Percent Auto 1.7 % (0-4); Hemoglobin 13.7 g/dl (14.0-18.0); Imm Gran Abs Auto 0.03 X10*3/uL (0.00-0.03); Imm Gran Pct Auto 0.5 % (0.0-0.4); Lymphocytes Percent Auto 15.7 % (20-40); Mean Corpuscular HGB Conc 35.1 g/dl (31.0-36.0); Mean Corpuscular Volume 82.5 fL (80.0-98.0); Mean Platelet Volume 10.5 fL (9.4-12.4); Monocytes Absolute Auto 1.1 X10*3/uL (0.1-1.2); Monocytes Percent Auto 17.1 % (2-11); Neutrophils Absolute Auto 4.1 x10*3/uL (2.0-8.3); Neutrophils Percent Auto 64.5 % (45-73); Platelet Count 118 X10*3/uL (160-400); Red Blood Count 4.73 X10*6/uL (4.60-5.80); Red Cell Distribution Width 13.4 % (11.0-16.0); White Blood Count 6.4 X10*3/uL (4.8-10.8)
[2021-02-10 07:13] VITALS: BP 152/74; PULSE 73; RESP 18; TEMP 36.9; O2SAT 98
[2021-02-10 07:20] LABS: Alanine Aminotransferase 319 U/L (0-40); Albumin Level 3.3 g/dL (3.5-5.0); Alkaline Phosphatase 288 U/L (39-117); Anion Gap 13 (12-20); Aspartate Amino Transferase 227 U/L (5-37); Bilirubin Direct 0.4 mg/dL (0.0-0.5); Bilirubin Total 0.8 mg/dL (0.0-1.0); Blood Urea Nitrogen 11 mg/dL (9-16); Calcium 7.9 mg/dL (8.4-10.2); Carbon Dioxide 20 mmol/L (22-29); Chloride 106 mmol/L (96-108); Creatinine Clr Calc Pharmacy 69.2; Estimated Glomerular Filt Rate > 60; Glucose Fasting 81 mg/dL (60-99); Potassium 3.1 mmol/L (3.3-5.1); Sodium 136 mmol/L (135-145); Total Protein 6.1 g/dL (6.5-8.0)
[2021-02-10 07:31] LABS: Glucose, Whole Blood 87 mg/dL (60-115)
[2021-02-10] MEDS: Acetaminophen 325 MG TABLET 650 MG PO (08:00)
[2021-02-10] MEDS: amLODIPine Besylate 5 MG TABLET PO (08:01)
[2021-02-10] MEDS: Ticagrelor 90 MG TABLET PO (08:01)
[2021-02-10] MEDS: Aspirin 81 MG TAB.CHEW PO (08:01)
[2021-02-10] MEDS: Metoprolol Succinate ER 25 MG TAB.ER.24H PO (08:01)
[2021-02-10] MEDS: Ezetimibe 10 MG TABLET PO (08:02)
[2021-02-10] MEDS: lisinopriL 5 MG TABLET PO (08:02)
[2021-02-10] MEDS: Potassium Chloride Packet 20 MEQ PACKET 40 MEQ PO (10:04)
[2021-02-10] MEDS: 0.9 % Sodium Chloride Flush 3 ML SYRINGE IVFLUSH (10:04)
--- NOTE | 2021-02-10 10:26 | PC.NURSE ---
Pt alert and oriented x4. C/O 8/10 H/A. PRN Tylenol given with good effect. NSR on tele with HR in the 60s Pt will D/C home later this afternoon.
--- NOTE | 2021-02-10 10:52 | P.DS_ITS ---
DS: Providers Provider Date of Service: 02/10/21 Date of admission: 02/06/21 16:31 Primary care physician: Riley Parker MD Consults: 02/07/21 08:48 Consult to Infectious Diseases Routine Consulting Provider: Brittni James Reason for consultation: bacteremia Has provider been notified: Yes 02/08/21 09:08 Consult to Urology Routine Consulting Provider: Jefferson Oneill Reason for consultation: bladder / prostate mass DS: Diagnosis Discharge Diagnosis (1) Sepsis: Status: Acute (2) Bacteremia due to Enterobacter species: Status: Acute (3) Acute prostatitis: Status: Acute DS: Summary Hospital Course Hospital Course: HPI from admitting provider: 65-year-old male presents 2-3 days of fever, shaking chills and dysuric symptoms.? He states this began with mild burning and progressed to the point did he felt he could not empty his bladder.? When queried, he states he has never had issues with his prostate or his kidneys.? He does complain of headache flank pain and generalized body aches along with his dysuric symptoms. ? [place] [address], mild hyponatremia and a lactate of 3.1 which trends? down to 2.5 with fluids. given IV fluids, Levaquin 500 IV.? Admission requested Hospital Course: patient was initially started on IV Levaquin but this was changed to IV ceftr iaxone due to persistent fevers. His blood cultures ultimately returned positive for Enterobacter. His urine culture was negative. Given his prostate enlargement / mass, likely acute prostatitis was the presumptive diagnosis. He was evaluated by both Infectious Disease and Urology. A Anna catheter had to be placed due to urinary retention. His repeat blood cultures are negative at 24 hours and has been afebrile greater than 36 hours prior to discharge. He will be discharged home on 26 more days of oral cefuroxime 500 mg twice daily. Anna catheter will be kept in place. He is to follow up with Dr. Oneill from Urology. Patient's hospital course was complicated by rising transaminases. There was no clinical nor imaging evidence of biliary obstruction. His Lipitor will be held upon discharge. A repeat liver panel has been ordered about 5 days from discharge. Time Spent with Patient Time attestation: Total time spent providing and/or coordinating discharge services: Discharge coordination time: Greater than 30 minutes Quality: Stroke Does the patient have a stroke diagnosis?: No Physical Exam Vital Signs: Vital Signs: Last Vital Signs Temp 98.5 F 02/10/21 07:13 Pulse 73 02/10/21 07:13 Resp 18 02/10/21 07:13 BP 152/74 H 02/10/21 07:13 Pulse Ox 98 02/10/21 07:13 Body Mass Index 26.6 Const: Other: General - no acute distress, appears comfortable Cardiovascular - regular rate and rhythm, S1-S2 Lungs - normal respiratory effort, clear to auscultation bilaterally, no wheezing Abdomen - soft, nontender, no rebound or guarding Extremities - no edema bilaterally - anna with clear urine Neuro - awake and alert, no focal deficits DS: Data Data Completed and Pending Labs on day of discharge: Laboratory Results - last 24 hr 02/09/21 02/09/21 02/09/21 11:20 16:06 19:26 WBC RBC Hgb Hct MCV MCH MCHC RDW Plt Count MPV Immature Gran % (Auto) Neut % (Auto) Lymph % (Auto) [place] % (Auto) Eos % (Auto) Baso % (Auto) Lymph # (Auto) [place] # (Auto) Eos # (Auto) Baso # (Auto) Abs Immat Gran (auto) Absolute Neuts (auto) Absolute Nucleated RBC Nucleated RBC % (auto) Sodium Potassium Chloride Carbon Dioxide Anion Gap BUN Creatinine Estim Creat Clear Calc Estimated GFR POC Glucose 201 H 201 H 148 H Fasting Glucose Calcium Total Bilirubin Direct Bilirubin AST ALT Alkaline Phosphatase B-Natriuretic Peptide Total Protein Albumin 02/10/21 02/10/21 02/10/21 05:41 05:41 05:41 WBC 6.4 RBC 4.73 Hgb 13.7 L Hct 39.0 L MCV 82.5 MCH 29.0 MCHC 35.1 RDW 13.4 Plt Count 118 L MPV 10.5 Immature Gran % (Auto) 0.5 H Neut % (Auto) 64.5 Lymph % (Auto) 15.7 L [place] % (Auto) 17.1 H Eos % (Auto) 1.7 Baso % (Auto) 0.5 Lymph # (Auto) 1.0 L [place] # (Auto) 1.1 Eos # (Auto) 0.1 Baso # (Auto) 0.0 Abs Immat Gran (auto) 0.03 Absolute Neuts (auto) 4.1 Absolute Nucleated RBC 0.000 Nucleated RBC % (auto) 0.0 Sodium 136 Potassium 3.1 L Chloride 106 Carbon Dioxide 20 L Anion Gap 13 BUN 11 Creatinine 0.90 Estim Creat Clear Calc 69.2 Estimated GFR > 60 POC Glucose Fasting Glucose 81 Calcium 7.9 L Total Bilirubin 0.8 Direct Bilirubin 0.4 AST 227 H ALT 319 H Alkaline Phosphatase 288 H D B-Natriuretic Peptide 48 Total Protein 6.1 L Albumin 3.3 L 02/10/21 07:18 WBC RBC Hgb Hct MCV MCH MCHC RDW Plt Count MPV Immature Gran % (Auto) Neut % (Auto) Lymph % (Auto) [place] % (Auto) Eos % (Auto) Baso % (Auto) Lymph # (Auto) [place] # (Auto) Eos # (Auto) Baso # (Auto) Abs Immat Gran (auto) Absolute Neuts (auto) Absolute Nucleated RBC Nucleated RBC % (auto) Sodium Potassium Chloride Carbon Dioxide Anion Gap BUN Creatinine Estim Creat Clear Calc Estimated GFR POC Glucose 87 Fasting Glucose Calcium Total Bilirubin Direct Bilirubin AST ALT Alkaline Phosphatase B-Natriuretic Peptide Total Protein Albumin Preliminary micro results at discharge 02/08/21 20:50 Blood Culture - Preliminary Blood - Venous No growth after 24 hours. 02/08/21 20:50 Blood Culture - Preliminary Blood - Venous No growth after 24 hours. Discharge Plan Discharge Patient Disposition: Home, Self-Care Discharge Diagnosis: Enterobacter Bacteremia Acute Prostatits Urinary retention Referrals: Jefferson Oneill MD [Physician] - 1 Week Name,MD Riley [Primary Care Provider] - 1 Week Discharge Medications: New cefuroxime axetil 500 mg tablet 500 mg PO Q12H Qty: 52 RF: 0 Continued metformin 500 mg tablet 2 tab PO BID RF: 0 amlodipine 5 mg tablet 1 tab PO DAILY RF: 0 aspirin 81 mg tablet,chewable 1 tab PO DAILY RF: 0 lisinopril 5 mg tablet 1 tab PO DAILY RF: 0 metoprolol succinate 25 mg tablet extended release 24 hr 1 tab PO DAILY RF: 0 glipizide 5 mg tablet 1 tab PO BID RF: 0 ezetimibe 10 mg tablet 1 tab PO DAILY RF: 0 Brilinta 90 mg tablet 1 tab PO BID RF: 0 Lantus Solostar U-100 Insulin 100 unit/mL (3 mL) insulin pen 50 unit subcut BEDTIME RF: 0 Discontinued atorvastatin 80 mg tablet 1 tab PO BEDTIME RF: 0 Discharge Orders: Discharge Order (Routine); Ordered 02/10/21 Ordered By: Jorge Caldwell Diet: advance to usual diet Activity on Discharge: As tolerated Stand Alone Forms: Patient Portal Discharge page Other Ambulatory Orders: Liver Panel (Routine) Timeframe: [id number] Facility: [facility] - Location: Laboratory Ordered By: Jorge Caldwell Care Plan Goals: To stay healthy and out of the hospital. Health Concerns: Prostate infection / prostate Mass Blood stream infection Plan of Treatment: Take Ceftin 500mg twice daily for 26 days Keep anna catheter in place Follow up with Dr. Oneill Assessment: 65 yo M admitted for acute prostatitis and bacteremia. Will be treated with 26 more days of antibiotics and is to f/u with urology for prostate work up.
[2021-02-10 11:04] VITALS: BP 117/78; PULSE 71; RESP 18; TEMP 36.9; O2SAT 98
[2021-02-10 11:15] LABS: Glucose, Whole Blood 157 mg/dL (60-115)
--- NOTE | 2021-02-10 11:38 | MHC.CM.PN ---
pt dcd home no skilled ser vceis ordered by
[2021-02-10] MEDS: Insulin Lispro 100 UNIT/ML 3 ML VIAL SUBCUT (12:40)
== END 2021-02-10 14:00 | disposition home or self-care (01) | DRG 872 ==
LOC: HO.ED 14:39 → HO.EDOVER 17:28 → HO.IMC 02-08 06:35
PROVIDERS: Internal Medicine; Nurse Practitioner Acute Care; Admitting Provider Hospitalist; Emergency Provider Emergency Medicine; PCP Internal Medicine Geriatric Medicine; Visit Provider Physician Assistant Medical
DX: A41.4 Sepsis due to anaerobes (principal); N41.0 Acute prostatitis; E87.2 Acidosis; N10 Acute pyelonephritis; I10 Essential (primary) hypertension; E11.9 Type 2 diabetes mellitus without complications; R33.9 Retention of urine, unspecified; D72.829 Elevated white blood cell count, unspecified; I25.10 Atherosclerotic heart disease of native coronary artery without angina pectoris; Z20.822 Contact with and (suspected) exposure to COVID-19; Z79.4 Long term (current) use of insulin; Z79.82 Long term (current) use of aspirin; Z79.899 Other long term (current) drug therapy
CPT/HCPCS: 36415; 71275; 74177; 80048; 80053; 80076; 81001; 82947; 83605; 83690; 83735; 83880; 84484; 85025; 85610; 85730; 87040; 87077; 87086; 87186; 87205; 87635; 93005; 99285; C1758; J0696; J1956; J2270; Q9967

== ENCOUNTER → 2021-02-25 10:41 | Outpatient (BNVA) | payer OTHER, SELFPAY | PROVIDERS: PCP Internal Medicine Geriatric Medicine; Visit Provider Urology | DX: Z13.9 Encounter for screening, unspecified (principal) | CPT/HCPCS: 51700; 51701; 51798 ==

== ENCOUNTER → 2021-03-25 08:48 | Outpatient (BNVA) | payer OTHER, SELFPAY | PROVIDERS: PCP Internal Medicine Geriatric Medicine; Visit Provider Urology | DX: N32.0 Bladder-neck obstruction (principal); R33.9 Retention of urine, unspecified | CPT/HCPCS: 52000; 99212 ==

== ENCOUNTER 2021-04-24 15:12 | Emergency (ER) | payer OTHER, SELFPAY ==
--- NOTE | ~2021-04-24 | CT_ITS ---
EXAMINATION: CT ABDOMEN AND PELVIS WITH CONTRAST CLINICAL INFORMATION: Reason for Exam UTI, rectal pain/pressure r/o prostatis COMPARISON: 02/06/2021 TECHNIQUE: Multidetector volumetric imaging was performed from the superior aspect of the liver through the pubic symphysis following administration of 100 mL Omnipaque 300 intravenous contrast. Sagittal and coronal reformatted images were obtained on the technologist workstation.. This CT examination was performed using dose optimization techniques as appropriate, variously including the following: *Automated exposure control *Adjustment of mA and/or kV according to patient size (this includes techniques or standardized protocols for targeted exams where dose is matched to indication/reason for exam; i.e. extremities or head) *Use of iterative reconstruction technique DLP: 505 mGy-cm FINDINGS: LUNG BASES: The visualized lung bases are unremarkable. Coronary artery calcification partially seen. Small hiatal hernia. LIVER, GALLBLADDER, AND BILIARY TREE: The liver is normal in size, shape, and attenuation. No focal hepatic lesion or biliary ductal dilatation is present. The gallbladder is unremarkable with no evidence of radiopaque gallstones, gallbladder wall thickening, or obvious pericholecystic inflammatory changes. PANCREAS: Unremarkable. SPLEEN: Unremarkable. ADRENAL GLANDS: Unremarkable. KIDNEYS AND URETERS: The kidneys are normal in size, shape, and attenuation. No hydronephrosis, hydroureter, or calculi seen. No perinephric stranding. BLADDER: Although decompressed there is diffuse bladder wall thickening. Underlying cystitis cannot be excluded however the appearance is similar to the 02/06/2021 exam. GASTROINTESTINAL TRACT: Few scattered colonic diverticula noted. Incidental lipoma the mid transverse colon visualized small bowel unremarkable ABDOMINAL WALL: No significant hernia is appreciated. LYMPHOVASCULAR STRUCTURES: Vascular calcification within the aorta iliac system. No bulky adenopathy PELVIC VISCERA: Prostate remains enlarged with mild heterogeneity. I do not appreciate a discrete prostatic abscess although underlying prostatitis cannot be excluded on this appearance OSSEOUS STRUCTURES: Unremarkable. CT/CT abdomen pelvis w con IMPRESSION: Although decompressed there is diffuse concentric bladder wall thickening. Cystitis could have this appearance. Overall the appearance to the bladder similar to the prior study. Prostate is prominent with diffuse heterogeneity. Underlying prostatitis cannot be excluded. I do not appreciate any discrete prostatic abscess.
[2021-04-24 15:39] VITALS: BP 134/73; PULSE 81; RESP 16; TEMP 37.1; O2SAT 98; BMI 20.8
--- NOTE | 2021-04-24 17:12 | ED_ITS ---
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 No numbness or tingling. Patient also has some radiation of pain down the right leg. No saddle anesthesia. No bowel or bladder incontinence. No fevers or chills or vomiting. Patient denies any urinary symptoms of urgency or frequency or blood in the urine. He denies any rectal pain or pressure. <Hailey Tate NP - Last Filed: 04/24/21 18:57> Related Data Home Medications: Home Medications Medication Instructions Recorded Confirmed amlodipine 5 mg tablet 1 tab PO DAILY 02/06/21 02/06/21 aspirin 81 mg chewable tablet 1 tab PO DAILY 02/06/21 02/06/21 ezetimibe 10 mg tablet 1 tab PO DAILY 02/06/21 02/06/21 glipizide 5 mg tablet 1 tab PO BID 02/06/21 02/06/21 insulin glargine 100 unit/mL (3 50 unit SUBCUT BEDTIME 02/06/21 02/06/21 mL) subcutaneous pen (Lantus Solostar U-100 Insulin) lisinopril 5 mg tablet 1 tab PO DAILY 02/06/21 02/06/21 metformin 500 mg tablet 2 tab PO BID 02/06/21 02/06/21 metoprolol succinate 25 mg 1 tab PO DAILY 02/06/21 02/06/21 tablet,extended release 24 hr ticagrelor 90 mg tablet (Brilinta) 1 tab PO BID 02/06/21 02/06/21 atorvastatin 80 mg tablet 80 mg PO DAILY 03/25/21 blood sugar diagnostic (FreeStyle #10 ea 03/25/21 Lite Strips) cholecalciferol (vitamin D3) 50 50 mcg PO DAILY 03/25/21 mcg (2,000 unit) tablet lancets 33 gauge (TRUEplus Lancets) #100 ea 03/25/21 Previous Rx's Medication Instructions Recorded cefuroxime axetil 500 mg tablet 500 mg PO Q12H #52 tab 02/10/21 finasteride 5 mg tablet 5 mg PO DAILY #90 tab 02/25/21 tamsulosin 0.4 mg capsule 0.4 mg PO BEDTIME #90 cap 02/25/21 ciprofloxacin HCl 500 mg tablet 500 mg PO BID 14 Days #28 tab 04/24/21 (Cipro) <Hailey Tate NP - Last Filed: 04/24/21 18:57> Allergies/Adverse Reactions: Allergies Allergy/AdvReac Type Severity Reaction Status Date / Time No Known Allergies Allergy Verified 03/25/21 09:09 <Hailey Tate NP - Last Filed: 04/24/21 18:57> Review of Systems Review of Systems: Yes all other systems are reviewed and are negative <Hailey Tate NP - Last Filed: 04/24/21 18:57> Constitutional: Constitutional: Reports no additional constitutional complaints, Denies body ache(s), Denies chills, Denies fever(s), Denies headache(s) and Denies weakness <LEODAN Call Last Filed: 04/24/21 18:57> Eyes: Eyes: Reports no additional eye complaints and Denies change in vision <Hailey Tate NP - Last Filed: 04/24/21 18:57> ENT: Reports system reviewed and no additional complaints, except as documented, Denies dizziness, Denies headache(s), Denies nasal congestion, Denies nasal discharge and Denies neck pain <Hailey Tate NP - Last Filed: 04/24/21 18:57> Cardiovascular: Cardiovascular: Reports no additional cardiovascular complaints, Denies chest pain, Denies leg edema and Denies dyspnea <Hailey Tate NP - Last Filed: 04/24/21 18:57> Respiratory: Respiratory: Reports no additional respiratory complaints, Denies cough and Denies dyspnea <Hailey Tate NP - Last Filed: 04/24/21 18:57> Gastrointestinal: Gastrointestinal: Reports no additional gastrointestinal complaints, Denies abdominal pain, Denies diarrhea, Denies nausea and Denies vomiting <Hailey Tate NP - Last Filed: 04/24/21 18:57> Genitourinary: Genitourinary: Denies urinary incontinence <Hailey Tate NP - Last Filed: 04/24/21 18:57> Musculoskeletal: Musculoskeletal: Reports no additional musculoskeletal complaints, Reports back pain, Denies arthralgias, Denies joint swelling, Denies neck pain, Denies numbness and Denies tingling <Hailey Tate NP - Last Filed: 04/24/21 18:57> Integumentary/Breasts: Skin/Breast: Reports system reviewed and no additional complaints, except as docu and Denies rash <Hailey Tate NP - Last Filed: 04/24/21 18:57> Neurologic: Reports system reviewed and no additional complaints, except as documented, Denies Abnormal speech present, Denies dizziness, Denies headache(s), Denies numbness, Denies tingling and Denies weakness <Hailey Tate NP - Last Filed: 04/24/21 18:57> COUNT INCLUDES THE [facility] Past Medical History Attestation statement: The following information was validated with the patient. <Hailey Tate NP - Last Filed: 04/24/21 18:57> Source: old records reviewed and nursing notes reviewed <Hailey Tate NP - Last Filed: 04/24/21 18:57> Medical History: Medical History Acidosis, lactic Acute prostatitis Acute pyelonephritis CAD (coronary artery disease) Diabetes Diabetes mellitus Fever Hyponatremia Leukocytosis Transaminitis <LEODAN Call Last Filed: 04/24/21 18:57> Social History Social History: Social History Alcohol intake: current Alcohol intake frequency: holidays/special occasions only Patient Tobacco Use Status: Never used Tobacco Advance Directives: No Advance Directives Information Provided: No service: No Current occupational status: disabled <Hailey Tate NP - Last Filed: 04/24/21 18:57> Physical Exam Vital Signs: Vital Signs: Last Vital Signs Temp 98.7 F 04/24/21 15:39 Pulse 81 04/24/21 15:39 Resp 16 04/24/21 15:39 BP 134/73 04/24/21 15:39 Pulse Ox 98 04/24/21 15:39 BMI result Body Mass Index 20.8 <Hailey Tate NP - Last Filed: 04/24/21 18:57> Vital Signs: Last Vital Signs Temp 98.7 F 04/24/21 15:39 Pulse 81 04/24/21 15:39 Resp 16 04/24/21 15:39 BP 134/73 04/24/21 15:39 Pulse Ox 98 04/24/21 15:39 BMI result Body Mass Index 20.8 <CELIA Paltt - Last Filed: 04/24/21 21:09> Const: General: cooperative, healthy appearing, comfortable and no acute distress <Hailey Tate NP - Last Filed: 04/24/21 18:57> Orientation/consciousness: patient oriented x3 <Hailey Tate NP - Last Filed: 04/24/21 18:57> Limitations: no limitations <Hailey Tate NP - Last Filed: 04/24/21 18:57> HENMT: Head: Yes normal to inspection <Hailey Tate NP - Last Filed: 04/24/21 18:57> Ears: hearing grossly normal bilaterally <Hailey Tate NP - Last Filed: 04/24/21 18:57> General nose exam: Normal external nose present <Hailey Tate NP - Last Filed: 04/24/21 18:57> Face and sinus: Yes normal facial exam <Hailey Tate NP - Last Filed: 04/24/21 18:57> Mouth: Normal oral and palatal mucosa present <Hailey Tate NP - Last Filed: 04/24/21 18:57> Throat: Yes posterior oropharynx normal <Hailey Tate NP - Last Filed: 04/24/21 18:57> Eyes: General: appearance normal, both eyes and all related structures <Hailey Tate NP - Last Filed: 04/24/21 18:57> Pupils: Equal, round and reactive pupils present <Hailey Tate NP - Last Filed: 04/24/21 18:57> Neck: Neck: Yes normal visual inspection <Hailey Tate NP - Last Filed : 04/24/21 18:57> Chest: Chest palpation & inspection: normal inspection of the chest <Hailey Tate NP - Last Filed: 04/24/21 18:57> Resp: Effort & Inspection: normal respiratory effort <Hailey Tate NP - Last Filed: 04/24/21 18:57> Auscultation: clear to auscultation bilaterally <Hailey Tate NP - Last Filed: 04/24/21 18:57> Cardio: Rate: regular rate <Hailey Tate NP - Last Filed: 04/24/21 18:57> Rhythm: regular rhythm <Hailey Tate NP - Last Filed: 04/24/21 18:57> Peripheral pulses: Peripheral pulses 2+ throughout <Hailey Tate NP - Last Filed: 04/24/21 18:57> GI: Inspection: Yes normal to inspection <Hailey Tate NP - Last Filed: 04/24/21 18:57> Palpation (GI): Soft to palpation and nontender <Hailey Tate NP - Last Filed: 04/24/21 18:57> Auscultation: normal bowel sounds <Hailey Tate NP - Last Filed: 04/24/21 18:57> Back/Spine/Pelvis: Other: Tenderness to the lumbar mid spine with no step-offs or deformities. <Hailey Tate NP - Last Filed: 04/24/21 18:57> Thoracic/Lumbar Spine: thoracic and lumbar spine normal to inspection <Hailey Tate NP - Last Filed: 04/24/21 18:57> Skin: General skin exam: no rashes or lesions noted <Hailey Tate NP - Last Filed: 04/24/21 18:57> Neuro: General: patient oriented x3, no focal motor deficits and normal sensation to monofilament <Hailey Tate NP - Last Filed: 04/24/21 18:57> Cranial nerves: Yes CN's II-XII intact bilaterally, Yes Equal, round and reactive pupils present, Yes Bilaterally intact EOM present, Yes Nystagmus not present, Yes Normal facial strength present and Yes Midline tongue present <Hailey Tate NP - Last Filed: 04/24/21 18:57> Cognition (Neuro): normal cognition <Hailey Tate NP - Last Filed: 04/24/21 18:57> Speech: No Abnormal speech present <Hailey Tate NP - Last Filed: 04/24/21 18:57> Gait exam (Neuro): Normal gait present <Hailey Tate NP - Last Filed: 04/24/21 18:57> Motor exam (neuro): 5/5 motor strength present throughout <Hailey Tate NP - Last Filed: 04/24/21 18:57> Sensory Exam: Normal double simultaneous stimulation for sensation <Hailey Tate NP - Last Filed: 04/24/21 18:57> Deep tendon reflexes (DTR's): Right patellar reflex intensity grade: 2+ and Left patellar reflex intensity grade: 2+ <Hailey Tate NP - Last Filed: 04/24/21 18:57> Extrem: General: Yes normal to inspection <Hailey Tate NP - Last Filed: 04/24/21 18:57> Course Course Course Narrative: 66-year-old male with a history of BPH, prostatitis here with reports of low back pain which radiates around to the front of the groin and down the right leg. No neurological deficits or red flag symptoms. No focal abdominal pain on exam. Patient has a history of prostatitis but states this feels different and has no reports of urinary symptoms or rectal pain or pressure. Will check UA If negative plan for discharge home with supportive care and follow-up primary care [id number], concern for prostatitis so will check CT, labs. At this time infection suspected. Antibiotics ordered. 1899-Sign out to Lisa ALCOCER pending above. <Hailey Tate NP - Last Filed: 04/24/21 18:57> Reevaluation(s) Reevaluation #1: Patient denies any exposure to sexually transmitted diseases.Discussed with Dr Guevara, who recommended patient be sent home with Cipro 500 b.i.d. for 10 days with follow-up with Urology. Gave patient return precautions of fever, worsening pain. Patient verbalized agreement understanding of plan <CELIA Branham - Last Filed: 04/24/21 21:09> MDM - Back Pain/Injury MDM Narrative Medical decision making narrative: Prostatitis UTI <Hailey Tate NP - Last Filed: 04/24/21 18:57> Differential Diagnosis Differential diagnosis: Likely strain of lumbar region <Hailey Tate NP - Last Filed: 04/24/21 18:57> Medical Records Attestation: I reviewed the patient's medical records. <Hailey Tate NP - Last Filed: 04/24/21 18:57> Lab Data Attestation: I reviewed the patient's lab results. <Hailey Tate NP - Last Filed: 04/24/21 18:57> Result diagrams: : 04/24/21 18:04 04/24/21 18:04 <Hailey Tate NP - Last Filed: 04/24/21 18:57> Labs: Lab Results 04/24/21 04/24/21 04/24/21 Range/Units 17:25 18:04 18:04 WBC 17.3 H (4.8-10.8) X10*3/uL RBC 4.74 (4.60-5.80) X10*6/uL Hgb 13.8 L (14.0-18.0) g/dl Hct 40.8 L (42.0-52.0) % MCV 86.1 (80.0-98.0) fL MCH 29.1 (27.0-33.0) pg MCHC 33.8 (31.0-36.0) g/dl RDW 12.4 (11.0-16.0) % Plt Count 265 D (160-400) X10*3/uL MPV 9.2 L (9.4-12.4) fL Immature Gran % (Auto) 0.4 (0.0-0.4) % Neut % (Auto) 81.3 H (45-73) % Lymph % (Auto) 11.5 L (20-40) % [place] % (Auto) 6.4 (2-11) % Eos % (Auto) 0.2 (0-4) % Baso % (Auto) 0.2 (0-2) % Lymph # (Auto) 2.0 (1.2-4.9) X10*3/uL [place] # (Auto) 1.1 (0.1-1.2) X10*3/uL Eos # (Auto) 0.0 (0.0-0.4) X10*3/uL Baso # (Auto) 0.0 (0.0-0.2) X10*3/uL Abs Immat Gran (auto) 0.07 H (0.00-0.03) X10*3/uL Absolute Neuts (auto) 14.1 H (2.0-8.3) x10*3/uL Absolute Nucleated RBC 0.000 (0.0-0.012) X10*3/uL Nucleated RBC % (auto) 0.0 (0.0-0.2) /100WBC Sodium 133 L (135-145) mmol/L Potassium 3.9 D (3.3-5.1) mmol/L Chloride 98 (96-108) mmol/L Carbon Dioxide 26 (22-29) mmol/L Anion Gap 13 (12-20) BUN 14 (9-16) mg/dL Creatinine 1.23 (0.5-1.4) mg/dL Estim Creat Clear Calc 47.5 Estimated GFR 59 Random Glucose 206 H (60-115) mg/dL Lactic Acid (0.5-2.0) mmol/L Calcium 9.5 D (8.4-10.2) mg/dL Urine Color YELLOW Urine Appearance HAZY Urine pH 6.0 (5.0-8.0) Ur Specific [place] 1.020 (1.005-1.025) Urine Protein TRACE (NEG-TRACE) MG/DL Urine Glucose (UA) 250 H (NEG) MG/DL Urine Ketones NEG (NEG) MG/DL Urine Blood NEG (NEG) Urine Nitrite POS H (NEG) Ur Leukocyte Esterase 1+ H (NEG) Urine RBC 0 (0) /HPF Urine WBC 30-49 H (0-4) /HPF Ur Squamous Epith Cells TRACE /LPF Urine Bacteria 2+ /LPF Urine Mucus TRACE /LPF 04/24/21 Range/Units 18:04 WBC (4.8-10.8) X10*3/uL RBC (4.60-5.80) X10*6/uL Hgb (14.0-18.0) g/dl Hct (42.0-52.0) % MCV (80.0-98.0) fL MCH (27.0-33.0) pg MCHC (31.0-36.0) g/dl RDW (11.0-16.0) % Plt Count (160-400) X10*3/uL MPV (9.4-12.4) fL Immature Gran % (Auto) (0.0-0.4) % Neut % (Auto) (45-73) % Lymph % (Auto) (20-40) % [place] % (Auto) (2-11) % Eos % (Auto) (0-4) % Baso % (Auto) (0-2) % Lymph # (Auto) (1.2-4.9) X10*3/uL [place] # (Auto) (0.1-1.2) X10*3/uL Eos # (Auto) (0.0-0.4) X10*3/uL Baso # (Auto) (0.0-0.2) X10*3/uL Abs Immat Gran (auto) (0.00-0.03) X10*3/uL Absolute Neuts (auto) (2.0-8.3) x10*3/uL Absolute Nucleated RBC (0.0-0.012) X10*3/uL Nucleated RBC % (auto) (0.0-0.2) /100WBC Sodium (135-145) mmol/L Potassium (3.3-5.1) mmol/L Chloride (96-108) mmol/L Carbon Dioxide (22-29) mmol/L Anion Gap (12-20) BUN (9-16) mg/dL Creatinine (0.5-1.4) mg/dL Estim Creat Clear Calc Estimated GFR Random Glucose (60-115) mg/dL Lactic Acid 1.4 (0.5-2.0) mmol/L Calcium (8.4-10.2) mg/dL Urine Color Urine Appearance Urine pH (5.0-8.0) Ur Specific [place] (1.005-1.025) Urine Protein (NEG-TRACE) MG/DL Urine Glucose (UA) (NEG) MG/DL Urine Ketones (NEG) MG/DL Urine Blood (NEG) Urine Nitrite (NEG) Ur Leukocyte Esterase (NEG) Urine RBC (0) /HPF Urine WBC (0-4) /HPF Ur Squamous Epith Cells /LPF Urine Bacteria /LPF Urine Mucus /LPF <Hailey Tate, BONBON DIPPER - Last Filed: 04/24/21 18:57> Lab Results 04/24/21 04/24/21 04/24/21 Range/Units 17:25 18:04 18:04 WBC 17.3 H (4.8-10.8) X10*3/uL RBC 4.74 (4.60-5.80) X10*6/uL Hgb 13.8 L (14.0-18.0) g/dl Hct 40.8 L (42.0-52.0) % MCV 86.1 (80.0-98.0) fL MCH 29.1 (27.0-33.0) pg MCHC 33.8 (31.0-36.0) g/dl RDW 12.4 (11.0-16.0) % Plt Count 265 D (160-400) X10*3/uL MPV 9.2 L (9.4-12.4) fL Immature Gran % (Auto) 0.4 (0.0-0.4) % Neut % (Auto) 81.3 H (45-73) % Lymph % (Auto) 11.5 L (20-40) % [place] % (Auto) 6.4 (2-11) % Eos % (Auto) 0.2 (0-4) % Baso % (Auto) 0.2 (0-2) % Lymph # (Auto) 2.0 (1.2-4.9) X10*3/uL [place] # (Auto) 1.1 (0.1-1.2) X10*3/uL Eos # (Auto) 0.0 (0.0-0.4) X10*3/uL Baso # (Auto) 0.0 (0.0-0.2) X10*3/uL Abs Immat Gran (auto) 0.07 H (0.00-0.03) X10*3/uL Absolute Neuts (auto) 14.1 H (2.0-8.3) x10*3/uL Absolute Nucleated RBC 0.000 (0.0-0.012) X10*3/uL Nucleated RBC % (auto) 0.0 (0.0-0.2) /100WBC Sodium 133 L (135-145) mmol/L Potassium 3.9 D (3.3-5.1) mmol/L Chloride 98 (96-108) mmol/L Carbon Dioxide 26 (22-29) mmol/L Anion Gap 13 (12-20) BUN 14 (9-16) mg/dL Creatinine 1.23 (0.5-1.4) mg/dL Estim Creat Clear Calc 47.5 Estimated GFR 59 Random Glucose 206 H (60-115) mg/dL Lactic Acid (0.5-2.0) mmol/L Calcium 9.5 D (8.4-10.2) mg/dL Urine Color YELLOW Urine Appearance HAZY Urine pH 6.0 (5.0-8.0) Ur Specific [place] 1.020 (1.005-1.025) Urine Protein TRACE (NEG-TRACE) MG/DL Urine Glucose (UA) 250 H (NEG) MG/DL Urine Ketones NEG (NEG) MG/DL Urine Blood NEG (NEG) Urine Nitrite POS H (NEG) Ur Leukocyte Esterase 1+ H (NEG) Urine RBC 0 (0) /HPF Urine WBC 30-49 H (0-4) /HPF Ur Squamous Epith Cells TRACE /LPF Urine Bacteria 2+ /LPF Urine Mucus TRACE /LPF 04/24/21 Range/Units 18:04 WBC (4.8-10.8) X10*3/uL RBC (4.60-5.80) X10*6/uL Hgb (14.0-18.0) g/dl Hct (42.0-52.0) % MCV (80.0-98.0) fL MCH (27.0-33.0) pg MCHC (31.0-36.0) g/dl RDW (11.0-16.0) % Plt Count (160-400) X10*3/uL MPV (9.4-12.4) fL Immature Gran % (Auto) (0.0-0.4) % Neut % (Auto) (45-73) % Lymph % (Auto) (20-40) % [place] % (Auto) (2-11) % Eos % (Auto) (0-4) % Baso % (Auto) (0-2) % Lymph # (Auto) (1.2-4.9) X10*3/uL [place] # (Auto) (0.1-1.2) X10*3/uL Eos # (Auto) (0.0-0.4) X10*3/uL Baso # (Auto) (0.0-0.2) X10*3/uL Abs Immat Gran (auto) (0.00-0.03) X10*3/uL Absolute Neuts (auto) (2.0-8.3) x10*3/uL Absolute Nucleated RBC (0.0-0.012) X10*3/uL Nucleated RBC % (auto) (0.0-0.2) /100WBC Sodium (135-145) mmol/L Potassium (3.3-5.1) mmol/L Chloride (96-108) mmol/L Carbon Dioxide (22-29) mmol/L Anion Gap (12-20) BUN (9-16) mg/dL Creatinine (0.5-1.4) mg/dL Estim Creat Clear Calc Estimated GFR Random Glucose (60-115) mg/dL Lactic Acid 1.4 (0.5-2.0) mmol/L Calcium (8.4-10.2) mg/dL Urine Color Urine Appearance Urine pH (5.0-8.0) Ur Specific [place] (1.005-1.025) Urine Protein (NEG-TRACE) MG/DL Urine Glucose (UA) (NEG) MG/DL Urine Ketones (NEG) MG/DL Urine Blood (NEG) Urine Nitrite (NEG) Ur Leukocyte Esterase (NEG) Urine RBC (0) /HPF Urine WBC (0-4) /HPF Ur Squamous Epith Cells /LPF Urine Bacteria /LPF Urine Mucus /LPF <CELIA Platt - Last Filed: 04/24/21 21:09> Discharge Plan Discharge Clinical Impression: Acute UTI, Leukocytosis, Acute prostatitis <Hailey Tate NP - Last Filed: 04/24/21 18:57> Patient Disposition: Home, Self-Care <Hailey Tate NP - Last Filed: 04/24/21 18:57> Instructions: Prostatitis (ED) <Hailey Tate NP - Last Filed: 04/24/21 18:57> Additional Instructions: Please call urologist for follow-up appointment at this number on Monday: Please fill your antibiotics by tomorrow morning, and take them morning and night for the next 14 days. Please return to emergency room if you have worsening pain, fevers, or any other new or concerning symptoms. Llame al ur?logo para ye batsheva de seguimiento a alex n?fifi el [facility]: Complete diaz antibi?ticos para ma?gladys por la ma?gladys y t?melos por la ma?gladys y por la noche chino los pr?ximos 14 d?as. Regrese a la kacy de emergencias si tiene un empeoramiento del dolor, fiebre o cualquier otro s?ntoma nuevo o preocupante <Hailey Tate NP - Last Filed: 04/24/21 18:57> Prescriptions: New ciprofloxacin HCl [Cipro] 500 mg tablet 500 mg PO BID 14 Days Qty: 28 0RF No Action metformin 500 mg tablet 2 tab PO BID 0RF amlodipine 5 mg tablet 1 tab PO DAILY 0RF aspirin 81 mg tablet,chewable 1 tab PO DAILY 0RF lisinopril 5 mg tablet 1 tab PO DAILY 0RF metoprolol succinate 25 mg tablet extended release 24 hr 1 tab PO DAILY 0RF glipizide 5 mg tablet 1 tab PO BID 0RF ezetimibe 10 mg tablet 1 tab PO DAILY 0RF Brilinta 90 mg tablet 1 tab PO BID 0RF Lantus Solostar U-100 Insulin 100 unit/mL (3 mL) insulin pen 50 unit subcut BEDTIME 0RF cefuroxime axetil 500 mg tablet 500 mg PO Q12H Qty: 52 0RF (DME) lancets [TRUEplus Lancets] 33 gauge misc See Rx Instructions ea topical .MEDSUPPLY Qty: 100 0RF Rx Instructions: As directed (DME) FreeStyle Lite Strips Strip See Rx Instructions ea Not Applicable TID Qty: 10 0RF Rx Instructions: As directed atorvastatin 80 mg tablet 80 mg PO DAILY 0RF cholecalciferol (vitamin D3) 50 mcg (2,000 unit) tablet 50 mcg PO DAILY 0RF tamsulosin 0.4 mg capsule 0.4 mg PO BEDTIME Qty: 90 0RF finasteride 5 mg tablet 5 mg PO DAILY Qty: 90 0RF <Hailey Tate NP - Last Filed: 04/24/21 18:57> Referrals: Doc Corona III, MD [Physician] - 2 days <Hailey Tate NP - Last Filed: 04/24/21 18:57> Print Language: Arabic <Hailey Tate NP - Last Filed: 04/24/21 18:57>
[2021-04-24 17:35] LABS: Appearance Urine HAZY; Color Urine YELLOW; Glucose Urine UA 250 MG/DL (NEG); Leukocyte Esterase Urine 1+ (NEG); Nitrite Urine POS (NEG); UACC Culture Trigger YES; Urine Blood NEG (NEG); Urine Ketones NEG (NEG); Urine Protein TRACE MG/DL (NEG-TRACE)
[2021-04-24 17:48] LABS: Bacteria Urine 2+ /LPF; Mucus Urine TRACE /LPF; RBC Urine 0 /HPF (0); Squamous Epithelial Cell Urine TRACE /LPF; WBC Urine 30-49 /HPF (0-4)
[2021-04-24 18:11] LABS: MANUAL DIFF FLAG NO
[2021-04-24 18:12] LABS: Basophils Percent Auto 0.2 % (0-2); Eosinophils Percent Auto 0.2 % (0-4); Hematocrit 40.8 % (42.0-52.0); Hemoglobin 13.8 g/dl (14.0-18.0); Imm Gran Abs Auto 0.07 X10*3/uL (0.00-0.03); Imm Gran Pct Auto 0.4 % (0.0-0.4); Lymphocytes Percent Auto 11.5 % (20-40); Mean Corpuscular HGB Conc 33.8 g/dl (31.0-36.0); Mean Corpuscular Hemoglobin 29.1 pg (27.0-33.0); Mean Corpuscular Volume 86.1 fL (80.0-98.0); Mean Platelet Volume 9.2 fL (9.4-12.4); Monocytes Absolute Auto 1.1 X10*3/uL (0.1-1.2); Monocytes Percent Auto 6.4 % (2-11); Neutrophils Absolute Auto 14.1 x10*3/uL (2.0-8.3); Neutrophils Percent Auto 81.3 % (45-73); Platelet Count 265 X10*3/uL (160-400); Red Blood Count 4.74 X10*6/uL (4.60-5.80); Red Cell Distribution Width 12.4 % (11.0-16.0); White Blood Count 17.3 X10*3/uL (4.8-10.8)
[2021-04-24 18:22] LABS: Lactic Acid 1.4 mmol/L (0.5-2.0)
[2021-04-24 18:25] LABS: Anion Gap 13 (12-20); Blood Urea Nitrogen 14 mg/dL (9-16); Calcium 9.5 mg/dL (8.4-10.2); Carbon Dioxide 26 mmol/L (22-29); Chloride 98 mmol/L (96-108); Creatinine Clr Calc Pharmacy 47.5; Estimated Glomerular Filt Rate 59; Glucose Random 206 mg/dL (60-115); Potassium 3.9 mmol/L (3.3-5.1); Sodium 133 mmol/L (135-145)
[2021-04-24] MEDS: Acetaminophen 325 MG TABLET 975 MG PO (18:26)
[2021-04-24] MEDS: cefTRIAXone sodium 1 GM in 0.9 % Sodium Chloride 50 ML IV (18:43)
[2021-04-24] MEDS: iohexoL 350 MG/ML 100 ML INFUS..BTL IV (19:05)
== END 2021-04-24 21:35 | disposition home or self-care (01) ==
PROVIDERS: Nurse Practitioner Family; Emergency Provider Emergency Medicine
DX: N39.0 Urinary tract infection, site not specified (principal); D72.829 Elevated white blood cell count, unspecified; N41.0 Acute prostatitis; E11.9 Type 2 diabetes mellitus without complications; Z79.4 Long term (current) use of insulin
CPT/HCPCS: 36415; 74177; 80048; 81001; 83605; 85025; 87040; 87086; 87088; 87186; 96365; 99284; J0696; Q9967

== ENCOUNTER 2021-04-27 18:43 | Emergency (ER) | payer OTHER, SELFPAY ==
[2021-04-27 18:56] VITALS: BP 164/75; PULSE 95; RESP 18; TEMP 39.5; O2SAT 99; BMI 25.7
[2021-04-27] MEDS: Acetaminophen 325 MG TABLET 650 MG PO (19:01)
[2021-04-27 19:12] LABS: MANUAL DIFF FLAG NO
[2021-04-27 19:15] LABS: Basophils Percent Auto 0.4 % (0-2); Eosinophils Absolute Auto 0.1 X10*3/uL (0.0-0.4); Eosinophils Percent Auto 0.7 % (0-4); Hematocrit 39.4 % (42.0-52.0); Hemoglobin 13.5 g/dl (14.0-18.0); Imm Gran Abs Auto 0.02 X10*3/uL (0.00-0.03); Imm Gran Pct Auto 0.2 % (0.0-0.4); Lymphocytes Absolute Auto 1.1 X10*3/uL (1.2-4.9); Lymphocytes Percent Auto 9.8 % (20-40); Mean Corpuscular HGB Conc 34.3 g/dl (31.0-36.0); Mean Corpuscular Hemoglobin 29.4 pg (27.0-33.0); Mean Corpuscular Volume 85.8 fL (80.0-98.0); Mean Platelet Volume 8.7 fL (9.4-12.4); Monocytes Absolute Auto 0.8 X10*3/uL (0.1-1.2); Monocytes Percent Auto 7.4 % (2-11); Neutrophils Absolute Auto 8.8 x10*3/uL (2.0-8.3); Neutrophils Percent Auto 81.5 % (45-73); Platelet Count 289 X10*3/uL (160-400); Red Blood Count 4.59 X10*6/uL (4.60-5.80); Red Cell Distribution Width 12.6 % (11.0-16.0); White Blood Count 10.7 X10*3/uL (4.8-10.8)
[2021-04-27 19:31] LABS: COVID-19 Test Negative (Negative)
[2021-04-27 19:32] LABS: Alanine Aminotransferase 47 U/L (0-40); Albumin Level 4.3 g/dL (3.5-5.0); Alkaline Phosphatase 89 U/L (39-117); Anion Gap 13 (12-20); Aspartate Amino Transferase 29 U/L (5-37); Bilirubin Total 0.6 mg/dL (0.0-1.0); Blood Urea Nitrogen 15 mg/dL (9-16); Calcium 9.3 mg/dL (8.4-10.2); Carbon Dioxide 24 mmol/L (22-29); Chloride 100 mmol/L (96-108); Creatinine Clr Calc Pharmacy 52.7; Estimated Glomerular Filt Rate 60; Glucose Random 186 mg/dL (60-115); Sodium 133 mmol/L (135-145)
[2021-04-27 20:00] VITALS: TEMP 38
[2021-04-27 20:17] VITALS: TEMP 38
[2021-04-27 20:19] LABS: Appearance Urine CLEAR; Color Urine YELLOW; Glucose Urine UA NEG (NEG); Leukocyte Esterase Urine NEG (NEG); Nitrite Urine NEG (NEG); PH 5.5 (5.0-8.0); Specific Gravity - Urine 1.025 (1.005-1.025); UACC Culture Trigger NO; Urine Blood 1+ (NEG); Urine Ketones NEG (NEG); Urine Protein NEG (NEG-TRACE)
--- NOTE | 2021-04-27 20:30 | ED.GENADULT ---
HPI - General Adult General Chief complaint: Fever Stated complaint: fever, abdominal pain Time Seen by Provider: 04/27/21 20:06 Source: patient and family Mode of arrival: ambulatory Limitations: no limitations History of Present Illness HPI narrative: Patient with history of Enterobacter aerogenes bacteremia in 01/31 with presumed prostatitis, was seen here on 04/24 for lower abdominal pain urine culture grew same bacteria but blood cultures was negative . To the ER for fever of 103.1 since morning with chills no nausea no vomiting no flank pain had slight suprapubic discomfort no urinary complaint no pain while moving his bowels Related Data Home Medications Medication Instructions Recorded Confirmed amlodipine 5 mg tablet 1 tab PO DAILY 02/06/21 02/06/21 aspirin 81 mg chewable tablet 1 tab PO DAILY 02/06/21 02/06/21 ezetimibe 10 mg tablet 1 tab PO DAILY 02/06/21 02/06/21 glipizide 5 mg tablet 1 tab PO BID 02/06/21 02/06/21 insulin glargine 100 unit/mL (3 50 unit SUBCUT BEDTIME 02/06/21 02/06/21 mL) subcutaneous pen (Lantus Solostar U-100 Insulin) lisinopril 5 mg tablet 1 tab PO DAILY 02/06/21 02/06/21 metformin 500 mg tablet 2 tab PO BID 02/06/21 02/06/21 metoprolol succinate 25 mg 1 tab PO DAILY 02/06/21 02/06/21 tablet,extended release 24 hr ticagrelor 90 mg tablet (Brilinta) 1 tab PO BID 02/06/21 02/06/21 atorvastatin 80 mg tablet 80 mg PO DAILY 03/25/21 blood sugar diagnostic (FreeStyle #10 ea 03/25/21 Lite Strips) cholecalciferol (vitamin D3) 50 50 mcg PO DAILY 03/25/21 mcg (2,000 unit) tablet lancets 33 gauge (TRUEplus Lancets) #100 ea 03/25/21 Previous Rx's Medication Instructions Recorded cefuroxime axetil 500 mg tablet 500 mg PO Q12H #52 tab 02/10/21 finasteride 5 mg tablet 5 mg PO DAILY #90 tab 02/25/21 tamsulosin 0.4 mg capsule 0.4 mg PO BEDTIME #90 cap 02/25/21 ciprofloxacin HCl 500 mg tablet 500 mg PO BID 14 Days #28 tab 04/24/21 (Cipro) Allergies Allergy/AdvReac Type Severity Reaction Status Date / Time No Known Allergies Allergy Verified 04/27/21 18:55 Review of Systems Review of Systems: Yes all other systems are reviewed and are negative [facility] Past Medical History Medical History Acidosis, lactic Acute prostatitis Acute pyelonephritis CAD (coronary artery disease) Diabetes Diabetes mellitus Fever Hyponatremia Leukocytosis Transaminitis Social History Social History Alcohol intake: never Patient Tobacco Use Status: Never used Tobacco Use of substances other than those prescribed or required for medical reasons: No Advance Directives: No Advance Directives Information Provided: Yes service: No Current occupational status: disabled Physical Exam ED Vital Signs: Vital Signs - 24 hr 04/27/21 18:56 04/27/21 20:00 04/27/21 20:17 Temperature 103.1 F H 100.4 F 100.4 F Pulse Rate 95 Respiratory Rate 18 Blood Pressure 164/75 H Pulse Oximetry 99 BMI result Body Mass Index 25.7 Appearance: Alert. Oriented X3. No acute distress. Eyes: No pallor or icterus ENT: Pharynx normal. Oral Mucosa moist Neck: Normal inspection. Neck supple. CVS: Normal heart rate and rhythm. Pulses normal. Respiratory: No respiratory distress. Equal air entry bilateral, no wheezing/rales/rhonchi Abdomen: Soft , slight suprapubic discomfort Bowel sounds are present, no mass palpable, no CVA tenderness Rectal: Enlarged prostate nontender Skin: Skin warm and dry. Normal skin color. Normal skin turgor. Extremities: No lower extremity edema. No calf tenderness Neuro: Oriented X 3. No motor deficit. Medical Decision Making MDM Narrative Medical decision making narrative: Patient already on p.o. Cipro UA is negative and lactic acid is 1.5 rectal examination also did not reveal any significant prostate tenderness patient is still possible has prostatitis IV dose of Levaquin given in the ER patient felt better blood cultures were drawn patient advised to continue Cipro for now , report back to the ER if fever continues Lab Data Lab results reviewed: Yes I reviewed the patient's lab results. Result diagrams: 04/27/21 19:06 04/27/21 19:06 Labs: Lab Results 04/27/21 04/27/21 04/27/21 Range/Units 19:06 19:06 19:06 WBC 10.7 (4.8-10.8) X10*3/uL RBC 4.59 L (4.60-5.80) X10*6/uL Hgb 13.5 L (14.0-18.0) g/dl Hct 39.4 L (42.0-52.0) % MCV 85.8 (80.0-98.0) fL MCH 29.4 (27.0-33.0) pg MCHC 34.3 (31.0-36.0) g/dl RDW 12.6 (11.0-16.0) % Plt Count 289 (160-400) X10*3/uL MPV 8.7 L (9.4-12.4) fL Immature Gran % (Auto) 0.2 (0.0-0.4) % Neut % (Auto) 81.5 H (45-73) % Lymph % (Auto) 9.8 L (20-40) % [place] % (Auto) 7.4 (2-11) % Eos % (Auto) 0.7 (0-4) % Baso % (Auto) 0.4 (0-2) % Lymph # (Auto) 1.1 L (1.2-4.9) X10*3/uL [place] # (Auto) 0.8 (0.1-1.2) X10*3/uL Eos # (Auto) 0.1 (0.0-0.4) X10*3/uL Baso # (Auto) 0.0 (0.0-0.2) X10*3/uL Abs Immat Gran (auto) 0.02 (0.00-0.03) X10*3/uL Absolute Neuts (auto) 8.8 H (2.0-8.3) x10*3/uL Absolute Nucleated RBC 0.000 (0.0-0.012) X10*3/uL Nucleated RBC % (auto) 0.0 (0.0-0.2) /100WBC Sodium 133 L (135-145) mmol/L Potassium 4.0 (3.3-5.1) mmol/L Chloride 100 (96-108) mmol/L Carbon Dioxide 24 (22-29) mmol/L Anion Gap 13 (12-20) BUN 15 (9-16) mg/dL Creatinine 1.21 (0.5-1.4) mg/dL Estim Creat Clear Calc 52.7 Estimated GFR 60 Random Glucose 186 H (60-115) mg/dL Lactic Acid (0.5-2.0) mmol/L Calcium 9.3 (8.4-10.2) mg/dL Total Bilirubin 0.6 (0.0-1.0) mg/dL AST 29 D (5-37) U/L ALT 47 H (0-40) U/L Alkaline Phosphatase 89 D (39-117) U/L Total Protein 8.0 D (6.5-8.0) g/dL Albumin 4.3 D (3.5-5.0) g/dL Urine Color Urine Appearance Urine pH (5.0-8.0) Ur Specific [place] (1.005-1.025) Urine Protein (NEG-TRACE) MG/DL Urine Glucose (UA) (NEG) MG/DL Urine Ketones (NEG) MG/DL Urine Blood (NEG) Urine Nitrite (NEG) Ur Leukocyte Esterase (NEG) Urine RBC (0) /HPF Urine WBC (0-4) /HPF Ur Squamous Epith Cells /LPF Urine Bacteria /LPF COVID-19 (SEBAS) Negative (Negative) COVID-19 Clin Com See Note 04/27/21 04/27/21 Range/Units 20:09 20:55 WBC (4.8-10.8) X10*3/uL RBC (4.60-5.80) X10*6/uL Hgb (14.0-18.0) g/dl Hct (42.0-52.0) % MCV (80.0-98.0) fL MCH (27.0-33.0) pg MCHC (31.0-36.0) g/dl RDW (11.0-16.0) % Plt Count (160-400) X10*3/uL MPV (9.4-12.4) fL Immature Gran % (Auto) (0.0-0.4) % Neut % (Auto) (45-73) % Lymph % (Auto) (20-40) % [place] % (Auto) (2-11) % Eos % (Auto) (0-4) % Baso % (Auto) (0-2) % Lymph # (Auto) (1.2-4.9) X10*3/uL [place] # (Auto) (0.1-1.2) X10*3/uL Eos # (Auto) (0.0-0.4) X10*3/uL Baso # (Auto) (0.0-0.2) X10*3/uL Abs Immat Gran (auto) (0.00-0.03) X10*3/uL Absolute Neuts (auto) (2.0-8.3) x10*3/uL Absolute Nucleated RBC (0.0-0.012) X10*3/uL Nucleated RBC % (auto) (0.0-0.2) /100WBC Sodium (135-145) mmol/L Potassium (3.3-5.1) mmol/L Chloride (96-108) mmol/L Carbon Dioxide (22-29) mmol/L Anion Gap (12-20) BUN (9-16) mg/dL Creatinine (0.5-1.4) mg/dL Estim Creat Clear Calc Estimated GFR Random Glucose (60-115) mg/dL Lactic Acid 1.5 (0.5-2.0) mmol/L Calcium (8.4-10.2) mg/dL Total Bilirubin (0.0-1.0) mg/dL AST (5-37) U/L ALT (0-40) U/L Alkaline Phosphatase (39-117) U/L Total Protein (6.5-8.0) g/dL Albumin (3.5-5.0) g/dL Urine Color YELLOW Urine Appearance CLEAR Urine pH 5.5 (5.0-8.0) Ur Specific [place] 1.025 (1.005-1.025) Urine Protein NEG (NEG-TRACE) MG/DL Urine Glucose (UA) NEG (NEG) MG/DL Urine Ketones NEG (NEG) MG/DL Urine Blood 1+ H (NEG) Urine Nitrite NEG (NEG) Ur Leukocyte Esterase NEG (NEG) Urine RBC 10-14 H (0) /HPF Urine WBC 0-2 (0-4) /HPF Ur Squamous Epith Cells 1+ /LPF Urine Bacteria NONE /LPF COVID-19 (SEBAS) (Negative) COVID-19 Clin Com Discharge Plan Discharge Clinical Impression: Fever Patient Disposition: Home, Self-Care Instructions: Fever in Adults (ED) Additional Instructions: Drink plenty of fluids Continue antibiotics as prescribed Report to the ER if fever continue/not feeling better Follow-up with urologist Tylenol for fever Beber mucho l?quido Contin?e con los antibi?ticos seg?n lo prescrito Informe a la kacy de emergencias si la fiebre contin?a o no se siente mejor Seguimiento con ur?logo Tylenol para la fiebre Prescriptions: No Action ciprofloxacin HCl [Cipro] 500 mg tablet 500 mg PO BID 14 Days Qty: 28 0RF metformin 500 mg tablet 2 tab PO BID 0RF amlodipine 5 mg tablet 1 tab PO DAILY 0RF aspirin 81 mg tablet,chewable 1 tab PO DAILY 0RF lisinopril 5 mg tablet 1 tab PO DAILY 0RF metoprolol succinate 25 mg tablet extended release 24 hr 1 tab PO DAILY 0RF glipizide 5 mg tablet 1 tab PO BID 0RF ezetimibe 10 mg tablet 1 tab PO DAILY 0RF Brilinta 90 mg tablet 1 tab PO BID 0RF Lantus Solostar U-100 Insulin 100 unit/mL (3 mL) insulin pen 50 unit subcut BEDTIME 0RF cefuroxime axetil 500 mg tablet 500 mg PO Q12H Qty: 52 0RF (DME) lancets [TRUEplus Lancets] 33 gauge misc See Rx Instructions ea topical .MEDSUPPLY Qty: 100 0RF Rx Instructions: As directed (DME) FreeStyle Lite Strips Strip See Rx Instructions ea Not Applicable TID Qty: 10 0RF Rx Instructions: As directed atorvastatin 80 mg tablet 80 mg PO DAILY 0RF cholecalciferol (vitamin D3) 50 mcg (2,000 unit) tablet 50 mcg PO DAILY 0RF tamsulosin 0.4 mg capsule 0.4 mg PO BEDTIME Qty: 90 0RF finasteride 5 mg tablet 5 mg PO DAILY Qty: 90 0RF Referrals: Jefferson Oneill MD [Physician] - 1 week Interventions: ED Discharge Assessment Last Done: 04/27/21 22:12 Print Language: Maltese
[2021-04-27 20:42] LABS: Squamous Epithelial Cell Urine 1+ /LPF; WBC Urine 0-2 /HPF (0-4)
[2021-04-27] MEDS: 0.9 % Sodium Chloride 1,000 ML 999 ML IV (20:58)
[2021-04-27] MEDS: levoFLOXacin/D5W 500 MG/100 ML PIGGYBACK 100 MG IV (21:01)
[2021-04-27 21:23] LABS: Lactic Acid 1.5 mmol/L (0.5-2.0)
== END 2021-04-27 22:34 | disposition home or self-care (01) ==
PROVIDERS: Emergency Provider Internal Medicine
DX: R50.9 Fever, unspecified (principal); Z20.822 Contact with and (suspected) exposure to COVID-19; E11.9 Type 2 diabetes mellitus without complications
CPT/HCPCS: 36415; 80053; 81001; 83605; 85025; 87040; 87635; 96361; 96374; 99284; J1956

== ENCOUNTER → 2021-05-28 15:18 | Outpatient (BNVA) | payer OTHER, SELFPAY | PROVIDERS: PCP Internal Medicine Geriatric Medicine; Visit Provider Urology | DX: N32.0 Bladder-neck obstruction (principal); R33.9 Retention of urine, unspecified | CPT/HCPCS: 51798; 99212 ==

== ENCOUNTER 2022-07-25 02:16 | Emergency (ER) | payer OTHER, SELFPAY ==
[2022-07-25] VITALS (10 sets, daily range): BP systolic 97–133; BP diastolic 67–81; PULSE 81–120; RESP 13–20; TEMP 36.6; O2SAT 93–100; BMI 25.7
--- NOTE | ~2022-07-25 | CT_ITS ---
EXAMINATION: NONCONTRAST HEAD CT NONCONTRAST CERVICAL SPINE CT INDICATION INFORMATION: Fall COMPARISON: 01/18/2018 TECHNIQUE: Separate noncontrast CT examinations of the head and cervical spine were performed. Coronal head CT images and coronal and sagittal cervical spine images were created at the technologist workstation. DLP: 1042 mGy-cm DOSE LOWERING TECHNIQUES: This CT examination was performed using dose optimization techniques as appropriate, variously including the following: - Automated exposure control - Adjustment of mA and/or kV according to patient size (this includes techniques or standardized protocols for targeted exams were dose is matched to indication/reason for exam; i.e. extremities or head) - Use of iterative reconstruction technique FINDINGS: Head: There is no evidence of acute intracranial hemorrhage or territorial infarction. No abnormal mass-effect or midline shift is seen. Miles to white matter differentiation is well preserved. No extra-axial fluid collections are identified. The ventricles are normal in size. There is mild periventricular white matter hypoattenuation consistent with chronic small vessel ischemic disease. Mild volume loss is noted. The osseous structures and soft tissues are normal. The mastoid air cells and visualized portions of the paranasal sinuses are well-aerated. Cervical spine: There is anatomic alignment of the vertebral bodies and posterior elements. Vertebral body heights are maintained. Intervertebral disc spaces are relatively well-preserved, with minimal degenerative changes. No evidence of acute fracture. No prevertebral soft tissue swelling. Visualized portions of the lung apices are unremarkable. The thyroid gland is unremarkable. CT/CT cervical spine wo IV con IMPRESSION: HEAD: No acute intracranial findings. CERVICAL SPINE: No acute findings identified.
--- NOTE | ~2022-07-25 | CT_ITS ---
EXAMINATION: NONCONTRAST HEAD CT NONCONTRAST CERVICAL SPINE CT INDICATION INFORMATION: Fall COMPARISON: 01/18/2018 TECHNIQUE: Separate noncontrast CT examinations of the head and cervical spine were performed. Coronal head CT images and coronal and sagittal cervical spine images were created at the technologist workstation. DLP: 1042 mGy-cm DOSE LOWERING TECHNIQUES: This CT examination was performed using dose optimization techniques as appropriate, variously including the following: - Automated exposure control - Adjustment of mA and/or kV according to patient size (this includes techniques or standardized protocols for targeted exams were dose is matched to indication/reason for exam; i.e. extremities or head) - Use of iterative reconstruction technique FINDINGS: Head: There is no evidence of acute intracranial hemorrhage or territorial infarction. No abnormal mass-effect or midline shift is seen. Miles to white matter differentiation is well preserved. No extra-axial fluid collections are identified. The ventricles are normal in size. There is mild periventricular white matter hypoattenuation consistent with chronic small vessel ischemic disease. Mild volume loss is noted. The osseous structures and soft tissues are normal. The mastoid air cells and visualized portions of the paranasal sinuses are well-aerated. Cervical spine: There is anatomic alignment of the vertebral bodies and posterior elements. Vertebral body heights are maintained. Intervertebral disc spaces are relatively well-preserved, with minimal degenerative changes. No evidence of acute fracture. No prevertebral soft tissue swelling. Visualized portions of the lung apices are unremarkable. The thyroid gland is unremarkable. CT/CT head/brain wo IV con IMPRESSION: HEAD: No acute intracranial findings. CERVICAL SPINE: No acute findings identified.
--- NOTE | 2022-07-25 02:51 | ED.ALCOHOL ---
HPI - Alcohol General Chief Complaint: ETOH/Substance Use Stated Complaint: ETOH Time Seen by Provider: 07/25/22 02:32 History of Present Illness HPI narrative: Patient is a 67-year-old male who drank large amount of alcohol. Also admits to using cocaine. Was found lying on the ground. Police tried awake patient up. Initially to no avail. Subsequently when patient awoke and he became very upset. Agitated. Unable to deescalate with verbal deescalation. Patient was not administered any Narcan. PD and EMS brought patient in after holding patient down. He has grossly agitated verbally abusive. Related Data Home Medications Medication Instructions Recorded Confirmed amlodipine 5 mg tablet 1 tab PO DAILY 02/06/21 02/06/21 aspirin 81 mg chewable tablet 1 tab PO DAILY 02/06/21 02/06/21 ezetimibe 10 mg tablet 1 tab PO DAILY 02/06/21 02/06/21 glipizide 5 mg tablet 1 tab PO BID diabetes mellitus 02/06/21 02/06/21 insulin glargine 100 unit/mL (3 50 unit subcut BEDTIME 02/06/21 02/06/21 mL) subcutaneous pen (Lantus Solostar U-100 Insulin) lisinopril 5 mg tablet 1 tab PO DAILY 02/06/21 02/06/21 metformin 500 mg tablet 2 tab PO BID 02/06/21 02/06/21 metoprolol succinate 25 mg 1 tab PO DAILY 02/06/21 02/06/21 tablet,extended release 24 hr ticagrelor 90 mg tablet (Brilinta) 1 tab PO BID 02/06/21 02/06/21 atorvastatin 80 mg tablet 80 mg PO DAILY 03/25/21 blood sugar diagnostic (FreeStyle #10 ea 03/25/21 Lite Strips) cholecalciferol (vitamin D3) 50 50 mcg PO DAILY 03/25/21 mcg (2,000 unit) tablet lancets 33 gauge (TRUEplus Lancets) #100 ea 03/25/21 Previous Rx's Medication Instructions Recorded cefuroxime axetil 500 mg tablet 500 mg PO Q12H #52 tabs 02/10/21 ciprofloxacin HCl 500 mg tablet 500 mg PO BID 14 days #28 tabs 04/24/21 (Cipro) finasteride 5 mg tablet 5 mg PO DAILY 90 days #90 tabs 05/28/21 tamsulosin 0.4 mg capsule 0.4 mg PO BEDTIME 90 days #90 caps 05/28/21 Allergies Allergy/AdvReac Type Severity Reaction Status Date / Time No Known Allergies Allergy Verified 05/28/21 15:24 Review of Systems Review of Systems: Positive altered mental status unable to provide detailed review systems [facility] Past Medical History Attestation statement: The following information was validated with the patient. Medical History Acidosis, lactic Acute prostatitis Acute pyelonephritis CAD (coronary artery disease) Diabetes Diabetes mellitus Fever Hyponatremia Leukocytosis Transaminitis Social History Social History Alcohol intake: never Patient Tobacco Use Status: Never used Tobacco Advance Directives: No Advance Directives Information Provided: Yes service: No Current occupational status: disabled Physical Exam ED Vital Signs: Vital Signs - 24 hr 07/25/22 02:45 07/25/22 02:35 07/25/22 02:50 Temperature Pulse Rate 92 120 H Respiratory Rate 17 20 20 Blood Pressure Pulse Oximetry 95 95 Oxygen Delivery Method Room Air Room Air Oxygen Flow Rate 07/25/22 03:05 07/25/22 04:14 07/25/22 03:35 Temperature Pulse Rate 112 H 90 89 Respiratory Rate 17 17 17 Blood Pressure 97/67 Pulse Oximetry 95 93 95 Oxygen Delivery Method Room Air Room Air Room Air Oxygen Flow Rate 07/25/22 03:20 07/25/22 06:25 07/25/22 07:16 Temperature 97.9 F Pulse Rate 90 87 85 Respiratory Rate 17 13 15 Blood Pressure 127/81 119/70 Pulse Oximetry 93 99 100 Oxygen Delivery Method Nasal Cannula Room Air Oxygen Flow Rate 2 BMI result Body Mass Index 25.7 Appearance: Alert. Oriented X3. Extremely agitated fighting Eyes: Pupils equal, round and reactive to light. ENT: Pharynx normal. Neck: Normal inspection. Neck supple. No lymph nodes noted. No crepitus CVS: Normal heart rate and rhythm. Pulses normal. Normal S1 and S2 Respiratory: No respiratory distress. Breath sounds normal. No Wheezing. No rales Abdomen: Soft and nontender. No rigidity. No distention. good BS x4 Skin: Skin warm and dry. Normal skin color. Normal skin turgor. Extremities: No lower extremity edema. Neurovascular intact to all extremities. No Lacerations. No Rash Neuro: No motor deficit. No sensory deficit. Moving all extermities. No slurred speech Medical Decision Making Medical Decision Making [facility] Narrative: Patient on arrival extremely agitated and combative. Admits to drinking alcohol. Question use cocaine prior. Due to his agitation patient was given Haldol Ativan and Benadryl. IV fluid was given for hydration. CT scan of the head C-spine were both grossly negative for any acute evidence of fracture. No bleed. Alcohol was over 300. Patient's hemoglobin is 13.9 no evidence for anemia. Electrolytes unremarkable. Currently awaiting clinical sobriety. In stable condition. Differential Diagnosis Alcohol intoxication, head injury, polysubstance abuse Lab Data [facility] Lab Attestation statement: I reviewed the patient's lab results. 07/25/22 04:07 07/25/22 04:07 Labs: Lab Results 07/25/22 07/25/22 Range/Units 04:07 04:07 WBC 6.4 (4.8-10.8) X10*3/uL RBC 4.63 (4.60-5.80) X10*6/uL Hgb 13.9 L (14.0-18.0) g/dl Hct 40.7 L (42.0-52.0) % MCV 87.9 (80.0-98.0) fL MCH 30.0 (27.0-33.0) pg MCHC 34.2 (31.0-36.0) g/dl RDW 12.1 (11.0-16.0) % Plt Count 216 D (160-400) X10*3/uL MPV 9.1 L (9.4-12.4) fL Immature Gran % (Auto) 0.2 (0.0-0.4) % Neut % (Auto) 63.7 (45-73) % Lymph % (Auto) 27.8 (20-40) % [place] % (Auto) 6.5 (2-11) % Eos % (Auto) 0.9 (0-4) % Baso % (Auto) 0.9 (0-2) % Lymph # (Auto) 1.8 (1.2-4.9) X10*3/uL [place] # (Auto) 0.4 (0.1-1.2) X10*3/uL Eos # (Auto) 0.1 (0.0-0.4) X10*3/uL Baso # (Auto) 0.1 (0.0-0.2) X10*3/uL Abs Immat Gran (auto) 0.01 (0.00-0.03) X10*3/uL Absolute Neuts (auto) 4.1 (2.0-8.3) x10*3/uL Absolute Nucleated RBC 0.000 (0.0-0.012) X10*3/uL Nucleated RBC % (auto) 0.0 (0.0-0.2) /100WBC Sodium 140 (135-145) mmol/L Potassium 3.5 (3.3-5.1) mmol/L Chloride 105 (96-108) mmol/L Carbon Dioxide 20 L (22-29) mmol/L Anion Gap 19 (12-20) BUN 8 L (9-16) mg/dL Creatinine 1.02 (0.5-1.4) mg/dL Estim Creat Clear Calc 57.2 Estimated GFR > 60 Random Glucose 149 H (60-115) mg/dL Calcium 9.2 (8.4-10.2) mg/dL Total Bilirubin 0.3 (0.0-1.0) mg/dL Direct Bilirubin 0.1 (0.0-0.5) mg/dL AST 19 (5-37) U/L ALT 15 (0-40) U/L Alkaline Phosphatase 44 (39-117) U/L Total Protein 7.2 (6.5-8.0) g/dL Albumin 4.5 (3.5-5.0) g/dL Ethyl Alcohol 301 H* mg/dL Medications Administered Discontinued Medications Generic Name Dose Route Start Last Admin Trade Name Freq PRN Reason Stop Dose Admin Diphenhydramine HCl 50 mg 07/25/22 02:32 07/25/22 03:00 Diphenhydramine Hcl 50 Mg/Ml Vial IM 07/25/22 02:33 50 mg ONCE ONE Administration Haloperidol Lactate 5 mg 07/25/22 02:32 07/25/22 03:00 Haloperidol Lactate 5 Mg/Ml Vial IM 07/25/22 02:33 5 mg ONCE ONE Administration Sodium Chloride 1,000 mls @ 999 mls/hr 07/25/22 02:45 07/25/22 07:13 Ns IV 07/25/22 03:45 Infused .Q1H1M SPARKLE Infusion Sodium Chloride 1,000 mls @ 999 mls/hr 07/25/22 02:45 07/25/22 07:14 Ns IV 07/25/22 03:45 Infused .Q1H1M SPARKLE Infusion Lorazepam 2 mg 07/25/22 02:32 07/25/22 03:00 Lorazepam 2 Mg/Ml Vial IM 07/25/22 02:33 2 mg ONCE ONE Administration Discharge Plan Discharge Clinical Impression: Alcoholic intoxication, Head injury Patient Disposition: Still a Patient Prescriptions: No Action finasteride 5 mg tablet 5 mg PO DAILY 90 Days Qty: 90 1RF tamsulosin 0.4 mg capsule 0.4 mg PO BEDTIME 90 Days Qty: 90 1RF ciprofloxacin HCl [Cipro] 500 mg tablet 500 mg PO BID 14 Days Qty: 28 0RF metformin 500 mg tablet 2 tab PO BID amlodipine 5 mg tablet 1 tab PO DAILY aspirin 81 mg tablet,chewable 1 tab PO DAILY lisinopril 5 mg tablet 1 tab PO DAILY metoprolol succinate 25 mg tablet extended release 24 hr 1 tab PO DAILY glipizide 5 mg tablet 1 tab PO BID ezetimibe 10 mg tablet 1 tab PO DAILY Brilinta 90 mg tablet 1 tab PO BID Lantus Solostar U-100 Insulin 100 unit/mL (3 mL) insulin pen 50 unit subcut BEDTIME cefuroxime axetil 500 mg tablet 500 mg PO Q12H Qty: 52 0RF (DME) lancets [TRUEplus Lancets] 33 gauge misc See Rx Instructions topical .MEDSUPPLY Qty: 100 Rx Instructions: As directed (DME) FreeStyle Lite Strips Strip See Rx Instructions Not Applicable TID Qty: 10 Rx Instructions: As directed atorvastatin 80 mg tablet 80 mg PO DAILY cholecalciferol (vitamin D3) 50 mcg (2,000 unit) tablet 50 mcg PO DAILY
[2022-07-25] MEDS: LORazepam 2 MG/ML VIAL IM (03:00)
[2022-07-25] MEDS: Haloperidol Lactate 5 MG/ML VIAL IM (03:00)
[2022-07-25] MEDS: diphenhydrAMINE HCL 50 MG/ML VIAL IM (03:00)
--- NOTE | 2022-07-25 03:05 | PC.NURSE ---
Alert and oriented to self. Aggressive behavior has decreased. Pt is asking where he is and how did he get here. Continues asking the same questions. Seems to be confused. Attempting to remove restraints. Verbal reassurance provided to pt. Explained restraints will be removed as soon as pt does not show signs of aggression or combative behavior. Pt agrees. Lights dimmed and noise decreased to provide a calm / soothing environment.
--- NOTE | 2022-07-25 03:19 | PC.NURSE ---
Pt arrived via EMS in four point restraint as pt is uncooperative, combative, and aggressive. Unable to be redirected. Pt is verbally aggressive and agitated. Security Marvin and MD at bedside. Pt medicated at 0235 as ordered by MD. Aggressive combative and violent behavior continues. Unable to obtain BP at this time. Will continue to monitor.
--- NOTE | 2022-07-25 03:20 | PC.NURSE ---
Pt noted to be sleeping in no apparent distress. Breaths are even regular and unlabored. Bilateral lower extremity restraints removed. Will continue to monitor.
--- NOTE | 2022-07-25 03:35 | PC.NURSE ---
All physical restraints removed at 0335. Pt sleeping in no apparent distress. Breaths are even regular and unlabored. NSR on monitor with HR 89. 1:1 sitter continues to be at bedside. Will continue to monitor.
--- NOTE | 2022-07-25 04:09 | PC.NURSE ---
Pt continue to be sleeping. Breaths are even regular and unlabored. All restraints removed at 0335. aware.
[2022-07-25 04:14] LABS: Basophils Absolute Auto 0.1 X10*3/uL (0.0-0.2); Basophils Percent Auto 0.9 % (0-2); Eosinophils Absolute Auto 0.1 X10*3/uL (0.0-0.4); Eosinophils Percent Auto 0.9 % (0-4); Hematocrit 40.7 % (42.0-52.0); Hemoglobin 13.9 g/dl (14.0-18.0); Imm Gran Abs Auto 0.01 X10*3/uL (0.00-0.03); Imm Gran Pct Auto 0.2 % (0.0-0.4); Lymphocytes Absolute Auto 1.8 X10*3/uL (1.2-4.9); Lymphocytes Percent Auto 27.8 % (20-40); MANUAL DIFF FLAG NO; Mean Corpuscular HGB Conc 34.2 g/dl (31.0-36.0); Mean Corpuscular Volume 87.9 fL (80.0-98.0); Mean Platelet Volume 9.1 fL (9.4-12.4); Monocytes Absolute Auto 0.4 X10*3/uL (0.1-1.2); Monocytes Percent Auto 6.5 % (2-11); Neutrophils Absolute Auto 4.1 x10*3/uL (2.0-8.3); Neutrophils Percent Auto 63.7 % (45-73); Platelet Count 216 X10*3/uL (160-400); Red Blood Count 4.63 X10*6/uL (4.60-5.80); Red Cell Distribution Width 12.1 % (11.0-16.0); White Blood Count 6.4 X10*3/uL (4.8-10.8)
--- NOTE | 2022-07-25 04:22 | PC.NURSE ---
O2 sat decreased to 80%. Pt placed on 2L via NC with O2 improvement to 98%. aware.
[2022-07-25 04:35] LABS: Alanine Aminotransferase 15 U/L (0-40); Albumin Level 4.5 g/dL (3.5-5.0); Alkaline Phosphatase 44 U/L (39-117); Anion Gap 19 (12-20); Aspartate Amino Transferase 19 U/L (5-37); Bilirubin Direct 0.1 mg/dL (0.0-0.5); Bilirubin Total 0.3 mg/dL (0.0-1.0); Blood Urea Nitrogen 8 mg/dL (9-16); Calcium 9.2 mg/dL (8.4-10.2); Carbon Dioxide 20 mmol/L (22-29); Chloride 105 mmol/L (96-108); Creatinine Clr Calc Pharmacy 57.2; Estimated Glomerular Filt Rate > 60; Ethanol 301 mg/dL; Glucose Random 149 mg/dL (60-115); Potassium 3.5 mmol/L (3.3-5.1); Sodium 140 mmol/L (135-145); Total Protein 7.2 g/dL (6.5-8.0)
[2022-07-25] MEDS: 0.9 % Sodium Chloride 1,000 ML 999 ML IV ×2 (06:12→06:13)
--- NOTE | 2022-07-25 07:04 | PC.NURSE ---
Pt found out of bed and on the floor by staff. Pt returned to the bedside. Pt incontinent of urine. Pt was cleaned and changed over. No new injuries noted. aware.
--- NOTE | 2022-07-25 07:35 | ECG_ITS ---
Test Reason : ETOH Blood Pressure : / mmHG Vent. Rate : 087 BPM Atrial Rate : 087 BPM P-R Int : 180 ms QRS Dur : 088 ms QT Int : 380 ms P-R-T Axes : 052 -29 051 degrees QTc Int : 457 ms Normal sinus rhythm Normal ECG When compared with ECG of 06-FEB-2021 13:10, (RBBB and left anterior fascicular block) is no longer Present Referred By: Darshana Brown Electronically Signed By:Deangelo Darling
[2022-07-25 07:51] LABS: Appearance Urine Clear; Color Urine Yellow; Glucose Urine UA Negative (Negative); Leukocyte Esterase Urine Negative (Negative); Nitrite Urine Negative (Negative); PH 5.5 (5.0-9.0); Specific Gravity - Urine <= 1.005 (1.005-1.025); Urine Blood Negative (Negative); Urine Ketones Negative (Negative); Urine Protein Negative (Neg-Trace)
[2022-07-25 07:56] LABS: Bacteria Urine None Seen (None Seen); Hyaline Casts Urine 0-2 /LPF (0-2); RBC Urine 0-2 /HPF (0-2); Squamous Epithelial Cell Urine 0-2 /HPF (0-2); WBC Urine 0-5 /HPF (0-5)
[2022-07-25 07:58] LABS: Amphetamine Screen Urine Not Detected (Not Detect); Barbiturates, Urine Not Detected (Not Detect); Benzodiazepines Screen Urine Not Detected (Not Detect); Cannabinoid Screen Urine Not Detected (Not Detect); Cocaine Screen Urine Not Detected (Not Detect); Fentanyl, urine Not Detected (Not Detect); Opiate Screen Urine Not Detected (Not Detect); Phencyclidine Screen Urine Not Detected (Not Detect)
[2022-07-25 09:48] LABS: Glucose, Whole Blood 126 mg/dL (60-115)
== END 2022-07-25 10:26 | disposition home or self-care (01) ==
PROVIDERS: Emergency Provider Emergency Medicine Emergency Medical Services
DX: F10.129 Alcohol abuse with intoxication, unspecified (principal); Y90.8 Blood alcohol level of 240 mg/100 ml or more; R51.9 Headache, unspecified; M54.2 Cervicalgia; F14.90 Cocaine use, unspecified, uncomplicated; I25.10 Atherosclerotic heart disease of native coronary artery without angina pectoris; Z79.899 Other long term (current) drug therapy
CPT/HCPCS: 36415; 70450; 72125; 80048; 80076; 80307; 81001; 82947; 85025; 93005; 96360; 96372; 99285; J1200; J2060

== ENCOUNTER 2022-11-05 12:02 | Emergency (ER) | payer OTHER, SELFPAY ==
--- NOTE | ~2022-11-05 | CT_ITS ---
EXAMINATION: CT abdomen pelvis wo IV con CLINICAL INFORMATION: Reason for Exam lower abd pain, lower back pain COMPARISON: Multiple prior CTs most recent 04/24/2021 TECHNIQUE: Multidetector volumetric imaging was performed from the superior aspect of the liver through the pubic symphysis a noncontrasted study. Sagittal and coronal reformatted images were obtained on the technologist's workstation. This CT examination was performed using dose optimization techniques as appropriate, variously including the following: *Automated exposure control *Adjustment of mA and/or kV according to patient size (this includes techniques or standardized protocols for targeted exams where dose is matched to indication/reason for exam; i.e. extremities or head) *Use of iterative reconstruction technique DLP: 383 mGy-cm FINDINGS: LOWER THORAX: Included lung bases are clear. HEPATOBILIARY: No focal hepatic lesions. No biliary ductal dilatation. GALLBLADDER: Gallbladder unremarkable. SPLEEN: Spleen is normal in size. PANCREAS: No focal mass or ductal dilatation. STOMACH AND GASTROINTESTINAL TRACT: Stomach is grossly unremarkable. There is no bowel distention or thickening. Appendix not visualized. ADRENALS: No adrenal nodules. KIDNEYS/URETERS: There are multiple tiny 1 and 2 mm nonobstructing kidney stones bilaterally, no hydronephrosis. URINARY BLADDER: Redemonstration of circumferential wall thickening of the urinary bladder, this is nonspecific and infarct due to its incomplete distention, also has been described in association with a chronic outflow obstruction, possible cystitis among other. Prostate is enlarged indenting on the bladder floor. Roughly measures 5.1 x 5.6 cm. PELVIC VISCERA: Unremarkable PERITONEUM: No free air or fluid. LYMPH NODES: No lymphadenopathy. VASCULAR: Aortic vascular calcifications. No aneurysm. Abdominal aorta normal in size, no aneurysm found. BONES, ABDOMINAL WALL AND SOFT TISSUES: Age-appropriate changes of the spine and skeletal system, no destructive osteolytic or osteosclerotic bone lesion found CT/CT abdomen pelvis wo IV con IMPRESSION: - No CT evidence of acute intra-abdominal process to explain patient's pain symptoms. - Redemonstration of circumferential wall thickening of the urinary bladder, this is nonspecific and could be sequela of chronic outflow obstruction, possible cystitis among other etiologies. - Enlarged prostate indenting on the bladder floor. - Bilateral tiny nonobstructing kidney stones. No hydronephrosis.
[2022-11-05 12:04] VITALS: BP 164/89; PULSE 67; RESP 18; TEMP 37.1; O2SAT 99; BMI 23.5
--- NOTE | 2022-11-05 12:04 | ED.BACK ---
HPI - Back Pain/Injury General Chief Complaint: Abdominal Pain Stated Complaint: back pain Time Seen by Provider: 11/05/22 12:59 Source: patient Mode of arrival: ambulatory Limitations: no limitations History of Present Illness HPI Narrative: 67 yo male with PMHx significant for prostatitis, bacteremia, BPH, chronic back pain, CAD s/p PCI with stent, diabetes, presenting to the ED today with a complaint of lateral low back pain with radiation to lower abdomen bilaterally x1 wk. Also reports fever, dysuria, & one episode of vomiting in the waiting room today. States he was picking up boxes at his son in law's the other day which exacerbated his back pain. Denies chills, CP/SOB, bowel/ bladder retention or incontinence, diarrhea/constipation, hematuria, numbness/tingling weakness to LE. Denies trauma/injury. No sick contacts. Denies IVDU. MD elicited complaint: back pain Pertinent past history: prior back pain Onset (ago): week(s) (1) Timing: progressively worsening Severity: severe Similar Symptoms Previously: Yes Quality: aching Location: right lower back and left lower back Radiation: abdomen Exacerbating factors: movement Relieving factors: none Context: while lifting Associated symptoms: increased urinary frequency and dysuria Work related injury: No Related Data Home Medications Medication Instructions Recorded Confirmed amlodipine 5 mg tablet 1 tab PO DAILY 02/06/21 02/06/21 aspirin 81 mg chewable tablet 1 tab PO DAILY 02/06/21 02/06/21 ezetimibe 10 mg tablet 1 tab PO DAILY 02/06/21 02/06/21 glipizide 5 mg tablet 1 tab PO BID diabetes mellitus 02/06/21 02/06/21 insulin glargine 100 unit/mL (3 50 unit subcut BEDTIME 02/06/21 02/06/21 mL) subcutaneous pen (Lantus Solostar U-100 Insulin) lisinopril 5 mg tablet 1 tab PO DAILY 02/06/21 02/06/21 metformin 500 mg tablet 2 tab PO BID 02/06/21 02/06/21 metoprolol succinate 25 mg 1 tab PO DAILY 02/06/21 02/06/21 tablet,extended release 24 hr ticagrelor 90 mg tablet (Brilinta) 1 tab PO BID 02/06/21 02/06/21 atorvastatin 80 mg tablet 80 mg PO DAILY 03/25/21 blood sugar diagnostic (FreeStyle #10 ea 03/25/21 Lite Strips) cholecalciferol (vitamin D3) 50 50 mcg PO DAILY 03/25/21 mcg (2,000 unit) tablet lancets 33 gauge (TRUEplus Lancets) #100 ea 03/25/21 Previous Rx's Medication Instructions Recorded cefuroxime axetil 500 mg tablet 500 mg PO Q12H #52 tabs 02/10/21 ciprofloxacin HCl 500 mg tablet 500 mg PO BID 14 days #28 tabs 04/24/21 (Cipro) finasteride 5 mg tablet 5 mg PO DAILY 90 days #90 tabs 05/28/21 tamsulosin 0.4 mg capsule 0.4 mg PO BEDTIME 90 days #90 caps 05/28/21 levofloxacin 500 mg tablet 500 mg PO DAILY UTI 7 days #7 tabs 11/05/22 lidocaine 5 % topical patch 1 patch topical DAILY #15 ea 11/05/22 Allergies Allergy/AdvReac Type Severity Reaction Status Date / Time No Known Allergies Allergy Verified 11/05/22 12:10 Review of Systems Review of Systems: Yes all other systems are reviewed and are negative [facility] Past Medical History Attestation statement: The following information was validated with the patient. Source: old records reviewed and nursing notes reviewed Medical History Acidosis, lactic Acute prostatitis Acute pyelonephritis CAD (coronary artery disease) Diabetes Diabetes mellitus Fever Hyponatremia Leukocytosis Transaminitis Social History Social History Alcohol intake: current Alcohol intake frequency: a few times a week Patient Tobacco Use Status: Never used Tobacco Smoked in Last 30 Days: No Use of substances other than those prescribed or required for medical reasons: No Advance Directives: No Advance Directives Information Provided: Yes service: No Current occupational status: disabled Physical Exam Vital Signs: Vital Signs: Last Vital Signs Temp 98.7 F 11/05/22 12:04 Pulse 61 11/05/22 14:02 Resp 18 11/05/22 14:02 BP 157/77 H 11/05/22 14:02 Pulse Ox 99 11/05/22 14:02 O2 Del Method Room Air 11/05/22 14:02 BMI result Body Mass Index 23.5 Appearance: Alert. Oriented X3. No acute distress. Head: normocephalic, atraumatic. Eyes: Pupils equal, round and reactive to light. ENT: Pharynx normal. No tonsillar swelling or exudate. Neck: Normal inspection. Neck supple. CVS: Normal heart rate and rhythm. Pulses normal. Respiratory: No respiratory distress. Breath sounds normal. Abdomen: Soft and nontender. +BS x4 Back: No ecchymosis, erythema, warmth or obvious deformity. No midline or paraspinal cervical, thoracic or lumbar tenderness. No step offs. No CVAT b/l. Skin: Skin warm and dry. Normal skin color. Normal skin turgor. No rashes. Extremities: No lower extremity edema. No joint swelling. Neuro/psych: Oriented X 3. No motor deficit. No sensory deficit. CN II-XII intact. Normal speech and cognition. Strength 5/5 throughout. No saddle anesthesia. Course Course Course Narrative: This is an RME: Additional HPI, ROS, PE not included below will be deferred to primary provider. Patient is a 67-year-old male presents emergency department for evaluation of diffuse lower back pain radiating into lower ABD pain x 1 month. for the past week pain has been progressively worse with subjective fever. Denies nausea, vomiting, dysuria, hematuria. Plan: Labs, urinalysis Medications Administered Discontinued Medications Generic Name Dose Route Start Last Admin Trade Name Freq PRN Reason Stop Dose Admin Ketorolac Tromethamine 30 mg 11/05/22 13:57 11/05/22 14:32 Ketorolac Tromethamine 30 Mg/Ml Vial IM 11/05/22 13:58 30 mg ONCE ONE Administration Medical Decision Making Medical Decision Making [facility] Narrative: 67 yo male with PMHx significant for prostatitis, BPH, chronic back pain presenting to the ED today with a complaint of lateral low back pain with radiation to lower abdomen bilaterally x1 wk. Vital signs stable. Patient is nontoxic appearing, in NAD. Plan: labs, UA, imaging CBC without leukocytosis or anemia. Chemistry without acute electrolyte abnormalities requiring intervention. Liver enzymes WNL. One dose of toradol give in ED for pain control UA showing infection > will start patient on PO Levaquin for UTI and hx of prosatitis. he has no rectal pain, declining YELENA at this time. No suspicion of sepsis at this time. CT shows enlarged prostate and thickening of the bladder wall suggestive of cystitis. comfortable w/ d/c with urology follow up. return precautions discussed Differential Diagnosis Differential Diagnoses: The differential diagnosis associated with the presentation includes viral syndrome, acute on chronic back pain, nephrolithasis, UTI, pyelonephritis, prostatitis, low suspicion for cauda equina, epidural abscess, cord compression Admission/Observation Consideration of admission/observation: Escalation of care including admission/observation considered Lab Data MDM Lab Attestation statement: I reviewed the patient's lab results. As above. 11/05/22 12:25 11/05/22 12:25 Labs: Lab Results 11/05/22 11/05/22 11/05/22 Range/Units 12:25 12:25 13:43 WBC 8.1 (4.8-10.8) X10*3/uL RBC 4.97 (4.60-5.80) X10*6/uL Hgb 14.8 (14.0-18.0) g/dl Hct 45.1 (42.0-52.0) % MCV 90.7 (80.0-98.0) fL MCH 29.8 (27.0-33.0) pg MCHC 32.8 (31.0-36.0) g/dl RDW 12.8 (11.0-16.0) % Plt Count 274 D (160-400) X10*3/uL MPV 9.3 L (9.4-12.4) fL Immature Gran % (Auto) 0.4 (0.0-0.4) % Neut % (Auto) 61.5 (45-73) % Lymph % (Auto) 27.5 (20-40) % Alexander % (Auto) 8.4 (2-11) % Eos % (Auto) 1.6 (0-4) % Baso % (Auto) 0.6 (0-2) % Lymph # (Auto) 2.2 (1.2-4.9) X10*3/uL Alexander # (Auto) 0.7 (0.1-1.2) X10*3/uL Eos # (Auto) 0.1 (0.0-0.4) X10*3/uL Baso # (Auto) 0.1 (0.0-0.2) X10*3/uL Abs Immat Gran (auto) 0.03 (0.00-0.03) X10*3/uL Absolute Neuts (auto) 5.0 (2.0-8.3) x10*3/uL Absolute Nucleated RBC 0.000 (0.0-0.012) X10*3/uL Nucleated RBC % (auto) 0.0 (0.0-0.2) /100WBC Sodium 135 (135-145) mmol/L Potassium 4.5 D (3.3-5.1) mmol/L Chloride 101 (96-108) mmol/L Carbon Dioxide 25 (22-29) mmol/L Anion Gap 14 (12-20) BUN 13 (9-16) mg/dL Creatinine 1.10 (0.5-1.4) mg/dL Estim Creat Clear Calc 57.1 Estimated GFR > 60 Random Glucose 128 H (60-115) mg/dL Calcium 9.9 D (8.4-10.2) mg/dL Total Bilirubin 0.6 (0.0-1.0) mg/dL AST 12 (5-37) U/L ALT 13 (0-40) U/L Alkaline Phosphatase 59 (39-117) U/L Total Protein 8.2 H (6.5-8.0) g/dL Albumin 4.3 (3.5-5.0) g/dL Urine Color Yellow Urine Appearance Turbid Urine pH 6.0 (5.0-9.0) Ur Specific Allen 1.015 (1.005-1.025) Urine Protein 30 (1+) H (Neg-Trace) mg/dL Urine Glucose (UA) Negative (Negative) mg/dL Urine Ketones Negative (Negative) mg/dL Urine Blood Moderate (2+) H (Negative) Urine Nitrite Positive H (Negative) Ur Leukocyte Esterase Large (3+) H (Negative) Urine RBC >20 H (0-2) /HPF Urine WBC >50 H (0-5) /HPF Ur Squamous Epith Cells 0-2 (0-2) /HPF Urine Bacteria 4+ (None Seen) Hyaline Casts 0-2 (0-2) /LPF Independent Interpretation I performed an independent interpretation of an: CT Scan Interpretation: CT abd/pelvis shows thickening of the bladder wall, enlarged prostate, agree with radiologists interpretation Radiology Impression Discussion of test interpretation with radiology: I have reviewed the radiologist's reading. Radiologist Impression: CT abdomen pelvis wo IV con IMPRESSION: - No CT evidence of acute intra-abdominal process to explain patient's pain symptoms.? - Redemonstration of circumferential wall thickening of the urinary bladder, this is nonspecific and could be sequela of chronic outflow obstruction, possible cystitis among other etiologies. - Enlarged prostate indenting on the bladder floor. - Bilateral tiny nonobstructing kidney stones. No hydronephrosis. Independent Historian Clinical information obtained from an independent historian. History obtained from or confirmed by: Other (daughter) External Record Review External record reviewed: Inpatient record Prescription Management I considered prescription management with: Pain Medication and Antibiotic Chronic Conditions Patient?s care impacted by: Other (BPH) Critical Care Time Critical Care Time Critical Care Time: No Discharge Plan Discharge Clinical Impression: Acute UTI, Chronic back pain, Enlarged prostate Patient Disposition: Home, Self-Care Instructions: Urinary Tract Infection in Men (ED), Chronic Back Pain (DC) Additional Instructions: Your lab workup was reassuring. Your urine was positive for infection. Your CT scan showed thickening of your bladder suggestive of infection and enlarged prostate. Please follow up with urology outpatient. CT abdomen pelvis wo IV con IMPRESSION: - No CT evidence of acute intra-abdominal process to explain patient's pain symptoms.? - Redemonstration of circumferential wall thickening of the urinary bladder, this is nonspecific and could be sequela of chronic outflow obstruction, possible cystitis among other etiologies. - Enlarged prostate indenting on the bladder floor. - Bilateral tiny nonobstructing kidney stones. No hydronephrosis. Levofloxacin is an antibiotic that has been sent to your pharmacy. Take this as prescribed for your urinary tract infection. Take the entire course and do not skip any doses. Follow up with your PCP. If you do not have one, you have been provided with a referral. Call them to schedule an appointment. Take tylenol and motrin as needed for pain. Return to the ED if your back pain worsens, you become incontinent of urine or stool, you develop weakness/ tingling/ or numbness in your legs, of if you develop a fever over 100.4F. [place]more an?lisis de laboratorio fue tranquilizador. Elmore orina kelsi positivo para infecci?n. Elmore tomograf?a computarizada mostr? un engrosamiento de la vejiga, lo que sugiere infecci?n y agrandamiento de la pr?stata. Por favor kath seguimiento con urolog?a ambulatoria. TC abdomen pelvis wo IV con IMPRESI?N: - No hay evidencia por TC de un proceso intraabdominal ronit que explique la situaci?n del paciente. s?ntomas de dolor. - Redemostraci?n del engrosamiento de la pared circunferencial de la v?a urinaria. vejiga, esto es inespec?fico y podr?a ser ye secuela de un flujo de salida cr?manny obstrucci?n, posible cistitis entre otras etiolog?as. - Pr?stata agrandada, sangr?a en el suelo de la vejiga. - C?lculos renales diminutos y no obstructivos bilaterales. Sin hidronefrosis. La levofloxacina es un antibi?reji que se rouse enviado a elmore farmacia. T?newman seg?n lo prescrito para elmore infecci?n del tracto urinario. Realice el curso completo y no se salte ninguna dosis. Kath un seguimiento con elmore PCP. Si no tiene rima, se le rouse proporcionado ye referencia. Ll?melos para programar ye batsheva. [place] tylenol y motrin seg?n sea necesario para el dolor. Regrese al servicio de urgencias si elmore dolor de espalda empeora, tiene incontinencia urinaria o fecal, desarrolla debilidad, hormigueo o entumecimiento en las piernas, o si presenta fiebre de m?s de 100,4 ?F. Prescriptions: New levofloxacin 500 mg tablet 500 mg PO DAILY 7 Days Qty: 7 0RF lidocaine 5 % adhesive patch,medicated 1 patch topical DAILY Qty: 15 0RF Rx Instructions: leave on most painful area for up to 12 hrs No Action finasteride 5 mg tablet 5 mg PO DAILY 90 Days Qty: 90 1RF tamsulosin 0.4 mg capsule 0.4 mg PO BEDTIME 90 Days Qty: 90 1RF ciprofloxacin HCl [Cipro] 500 mg tablet 500 mg PO BID 14 Days Qty: 28 0RF metformin 500 mg tablet 2 tab PO BID amlodipine 5 mg tablet 1 tab PO DAILY aspirin 81 mg tablet,chewable 1 tab PO DAILY lisinopril 5 mg tablet 1 tab PO DAILY metoprolol succinate 25 mg tablet extended release 24 hr 1 tab PO DAILY glipizide 5 mg tablet 1 tab PO BID ezetimibe 10 mg tablet 1 tab PO DAILY Brilinta 90 mg tablet 1 tab PO BID Lantus Solostar U-100 Insulin 100 unit/mL (3 mL) insulin pen 50 unit subcut BEDTIME cefuroxime axetil 500 mg tablet 500 mg PO Q12H Qty: 52 0RF (DME) lancets [TRUEplus Lancets] 33 gauge misc See Rx Instructions topical .MEDSUPPLY Qty: 100 Rx Instructions: As directed (DME) FreeStyle Lite Strips Strip See Rx Instructions Not Applicable TID Qty: 10 Rx Instructions: As directed atorvastatin 80 mg tablet 80 mg PO DAILY cholecalciferol (vitamin D3) 50 mcg (2,000 unit) tablet 50 mcg PO DAILY Referrals: [facility] [Provider Group] [facility] [Provider Group] Physician,Unknown J [Primary Care Provider] -
[2022-11-05 12:29] LABS: MANUAL DIFF FLAG NO
[2022-11-05 12:31] LABS: Basophils Absolute Auto 0.1 X10*3/uL (0.0-0.2); Basophils Percent Auto 0.6 % (0-2); Eosinophils Absolute Auto 0.1 X10*3/uL (0.0-0.4); Eosinophils Percent Auto 1.6 % (0-4); Hematocrit 45.1 % (42.0-52.0); Hemoglobin 14.8 g/dl (14.0-18.0); Imm Gran Abs Auto 0.03 X10*3/uL (0.00-0.03); Imm Gran Pct Auto 0.4 % (0.0-0.4); Lymphocytes Absolute Auto 2.2 X10*3/uL (1.2-4.9); Lymphocytes Percent Auto 27.5 % (20-40); Mean Corpuscular HGB Conc 32.8 g/dl (31.0-36.0); Mean Corpuscular Hemoglobin 29.8 pg (27.0-33.0); Mean Corpuscular Volume 90.7 fL (80.0-98.0); Mean Platelet Volume 9.3 fL (9.4-12.4); Monocytes Absolute Auto 0.7 X10*3/uL (0.1-1.2); Monocytes Percent Auto 8.4 % (2-11); Neutrophils Percent Auto 61.5 % (45-73); Platelet Count 274 X10*3/uL (160-400); Red Blood Count 4.97 X10*6/uL (4.60-5.80); Red Cell Distribution Width 12.8 % (11.0-16.0); White Blood Count 8.1 X10*3/uL (4.8-10.8)
[2022-11-05 12:44] LABS: Alanine Aminotransferase 13 U/L (0-40); Albumin Level 4.3 g/dL (3.5-5.0); Alkaline Phosphatase 59 U/L (39-117); Anion Gap 14 (12-20); Aspartate Amino Transferase 12 U/L (5-37); Bilirubin Total 0.6 mg/dL (0.0-1.0); Blood Urea Nitrogen 13 mg/dL (9-16); Calcium 9.9 mg/dL (8.4-10.2); Carbon Dioxide 25 mmol/L (22-29); Chloride 101 mmol/L (96-108); Creatinine Clr Calc Pharmacy 57.1; Estimated Glomerular Filt Rate > 60; Glucose Random 128 mg/dL (60-115); Potassium 4.5 mmol/L (3.3-5.1); Sodium 135 mmol/L (135-145); Total Protein 8.2 g/dL (6.5-8.0)
[2022-11-05 13:51] LABS: Appearance Urine Turbid; Color Urine Yellow; Glucose Urine UA Negative (Negative); Leukocyte Esterase Urine Large (3+) (Negative); Nitrite Urine Positive (Negative); Specific Gravity - Urine 1.015 (1.005-1.025); UMIC TRIGGER UACC YES; Urine Blood Moderate (2+) (Negative); Urine Ketones Negative (Negative); Urine Protein 30 (1+) mg/dL (Neg-Trace)
[2022-11-05 13:53] LABS: Bacteria Urine 4+ (None Seen); Hyaline Casts Urine 0-2 /LPF (0-2); RBC Urine >20 /HPF (0-2); Squamous Epithelial Cell Urine 0-2 /HPF (0-2); UACC Culture Trigger YES; WBC Urine >50 /HPF (0-5)
[2022-11-05 14:02] VITALS: BP 157/77; PULSE 61; RESP 18; O2SAT 99
[2022-11-05] MEDS: Ketorolac Tromethamine 30 MG/ML VIAL IM (14:32)
[2022-11-05] MEDS: levoFLOXacin 750 MG TABLET PO (15:12)
--- NOTE | 2022-11-05 15:14 | PC.NURSE ---
medicated per may, discharge instructions reviewed with patient who verbalized undrstanding
== END 2022-11-05 15:33 | disposition home or self-care (01) ==
PROVIDERS: Nurse Practitioner Family; Emergency Provider Student in an Organized Health Care Education/Training Program
DX: N39.0 Urinary tract infection, site not specified (principal); B96.89 Other specified bacterial agents as the cause of diseases classified elsewhere; G89.29 Other chronic pain; M54.50 Low back pain, unspecified; N40.1 Benign prostatic hyperplasia with lower urinary tract symptoms; R35.0 Frequency of micturition; E11.9 Type 2 diabetes mellitus without complications; Z79.82 Long term (current) use of aspirin; Z79.4 Long term (current) use of insulin; Z79.899 Other long term (current) drug therapy
CPT/HCPCS: 36415; 74176; 80053; 81001; 85025; 87086; 87088; 87186; 96372; 99284; J1885

== ENCOUNTER 2023-03-22 10:11 | Outpatient (AMB) | payer OTHER, SELFPAY ==
--- NOTE | 2023-03-22 10:24 | A.OFFVIS_ITS ---
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 Intake Note: Dietetic Aide/Davina/CAD pt its its feeling fine Band Instrument Repairer Required: Yes Band Instrument Repairer Name: [id number]/[email or web address] Accompanied by: Self / Same As Patient Allergies No Known Allergies Allergy (Verified 11/05/22 12:10) Medication List - Last Reconciled 03/22/23 by Deangelo Darling MD amlodipine 1 tab PO DAILY aspirin 1 tab PO DAILY atorvastatin 80 mg PO DAILY blood sugar diagnostic (FreeStyle Lite Strips) As directed cefuroxime axetil 500 mg PO Q12H cholecalciferol (vitamin D3) 50 mcg PO DAILY ciprofloxacin HCl (Cipro) 500 mg PO BID 14 days ezetimibe 1 tab PO DAILY finasteride 5 mg PO DAILY 90 days glipizide 1 tab PO BID insulin glargine (Lantus Solostar U-100 Insulin) 50 units subcut BEDTIME lancets (TRUEplus Lancets) As directed levofloxacin 500 mg PO DAILY 7 days lidocaine 5% 1 patch topical DAILY lisinopril 1 tab PO DAILY metformin 2 tabs PO BID metoprolol succinate ER 1 tab PO DAILY tamsulosin 0.4 mg PO BEDTIME 90 days ticagrelor (Brilinta) 1 tab PO BID HPI HPI Comments History of Present Illness Details Pleasant 68-year-old gentleman who is here for 1st office visit. It appears he had known coronary artery disease. He is on aspirin and Brilinta currently. I reviewed his chart at [facility] it appears in 2018 he presented with acute coronary syndrome and was found to have plaque rupture in prox LAD involving a large diagonal branch. This was treated with DK crush 2 stent technique at that time. He also had PDA stenosis which was around 50% at that time. He is now presenting to us for assessment of chest pain. He is saying that his left shoulder and left-sided chest hurts occasionally. This is random chest discomfort. He also is out of breath with activity. He is saying that these symptoms are new and bothersome to him. He is denying tobacco use. He is denying any drug use. He is saying that he drinks alcohol on the weekends. He has been at [facility] with alcohol intoxication in July 2022. EKGs showing sinus rhythm, normal EKG, QTC 423 milliseconds. [facility] Medical History Acidosis, lactic Acute prostatitis Acute pyelonephritis CAD (coronary artery disease) Diabetes Diabetes mellitus Fever Hyponatremia Leukocytosis Transaminitis Social History Alcohol intake: current Alcohol intake frequency: a few times a week Patient Tobacco Use Status: Never used Tobacco service: No Current occupational status: disabled Physical Exam Vital Signs: Last Vital Signs Pulse 63 03/22/23 10:27 BP 140/56 H 03/22/23 10:27 BMI result Body Mass Index 23.7 GENERAL APPEARANCE: in no acute distress, pleasant. NECK: no carotid bruit, no jugular venous distention. SKIN: no suspicious lesions, warm and dry. HEART: no murmurs, regular rate and rhythm. LUNGS: clear to auscultation bilaterally. ABDOMEN: soft, nontender. EXTREMITIES: no edema. PERIPHERAL PULSES: equal. NEUROLOGIC: No gross deficits, AAO X 3 Office Procedures EKG Details: Sinus rhythm 63 beats per minute, normal axis, normal EKG, QTC 423 milliseconds. [id number], Complete Assessment & Plan Assessment & Plan (1) Chest pain: Code(s): R07.9 - Chest pain, unspecified (2) Dyspnea: Code(s): R06.00 - Dyspnea, unspecified Plan 68-year-old gentleman presenting for assessment of chest pain and dyspnea. He has known history of coronary artery disease with previous LAD diagonal PCI with DK crush [place] [address] Yadav. He had PDA stenosis which was around 50% at that time. He is presenting for chest pain and dyspnea. We will arrange an exercise stress test for him. Will check echo to assess for any structural issues and wall motion abnormality. He will see us back after the testing is done. Thank you for allowing me to participate in the care of your patient. Please feel free to contact me if you have any questions. Orders: Orders CA echo transthoracic complete Today R06.00 - Dyspnea, unspecified CA stress test Today R07.9 - Chest pain, unspecified Coding Level of Care Code New Pt Level 4 (98750) Diagnoses Chest pain R07.9 Dyspnea R06.00 CPT Codes EKG - CPT: 95143-[id number], Complete ([id number])
[2023-03-22 10:27] VITALS: BP 140/56; PULSE 63; BMI 23.7
== END 2023-03-22 11:06 | disposition home or self-care (01) ==
PROVIDERS: Visit Provider Internal Medicine Cardiovascular Disease
DX: R07.9 Chest pain, unspecified (principal); R06.00 Dyspnea, unspecified
CPT/HCPCS: 93010; 99204

== ENCOUNTER → 2023-03-22 10:11 | Outpatient (BNVA) | payer OTHER, SELFPAY | PROVIDERS: Visit Provider Internal Medicine Cardiovascular Disease | DX: R07.9 Chest pain, unspecified (principal); R06.00 Dyspnea, unspecified | CPT/HCPCS: 93005; 99202 ==

== ENCOUNTER → 2023-05-09 08:37 | Outpatient (REF) | payer OTHER, SELFPAY ==
--- NOTE | 2023-05-09 08:40 | CA_ITS ---
Transthoracic Echocardiogram Patient (Last, First, Middle): Carlos Lopez, Gender: Male Date of : 1955 Age: 68 Procedure Date: 05/09/2023 Procedure Type: Transthoracic Echocardiogram Location: OP Height: 167.64 cm Weight: 67.59 kg BSA: 1.76 m2 Heart Rate: bpm BP: 150 / 70 mmHg [employer]: [place] Referring MD: Deangelo Darling MD Singing Telegram Performer: Deangelo Darling MD Symptoms: R06.00 - Dyspnea, unspecified Study Quality: Adequate ECG Rhythm: Sinus Conclusions: - The left ventricular systolic function is low normal. The visually estimated ejection fraction is between 50-55%. - No obvious valvular pathology seen on this study. Findings Left Ventricle Normal left ventricular cavity size. There is normal left ventricular wall thickness. The left ventricular systolic function is low normal. The visually estimated ejection fraction is between 50-55%. There is no evidence of regional wall motion abnormalities. Evidence suggests grade I (mild) diastolic dysfunction. LV peak GLS -16.5%. Right Ventricle Normal right ventricular cavity size and systolic function. Atria The left atrium is mildly dilated. The right atrium is normal in size. Aortic Valve There is a normal trileaflet aortic valve. There is no aortic valve stenosis. There is no aortic valve regurgitation. Mitral Valve The mitral valve appears normal. There is trace mitral valve regurgitation. There is no mitral valve stenosis. Pulmonic Valve The pulmonic valve is likely normal. Tricuspid Valve There is trace tricuspid valve regurgitation. There is no evidence of pulmonary hypertension. Great Vessels The asc aorta is normal in size. Venous The inferior vena cava is normal in size and collapses greater than 50% with inspiration. Pericardium/Pleural There is no evidence of pericardial effusion. Prior Study Comparison No prior study available for comparison. Recommendations, Care & Conclusions No obvious valvular pathology seen on this study. Measurements 2D Linear Measurements IVSd: 0.90 0.6-0.9/0.6-1.0 cm LVIDd: 5.12 3.9-5.3/4.2-5.9 cm LVIDd Index: 2.91 2.4-3.2/2.2-3.1 cm/m2 LVIDs: 3.88 2.0-3.6 cm LVPWd: 0.77 0.7-1.1 cm LA Diam: 3.50 2.7-3.8/3.0-4.0 cm LAIDs Index: 1.99 1.5-2.3 cm/m2 LV Mass: 186.56 67-162/88-224 g LV Mass Index: 106.00 43-95/49-115 g/m2 LVOT Diam: 2.20 3.0+(-)1.3 cm 2D Systolic Function EF 4C: 58.40 >55% EF 2C: 60.20 >55% EF BiP: 59.00 >55% Mitral Valve MV Pk E: 0.42 MV PK A: 0.67 MV Decel Time: 310.00 E/A: 0.60 E'Lateral: 7.83 E'Medial: 6.31 E/E' Med: 6.70 E/E' Lat: 5.40 PHT: 91.00 MVA PHT: 2.42 Decel Frederick: 1.36 Aortic Valve AoV Pk Abraham: 1.33 AoV Mn Abraham: 0.89 AoV VTI: 0.31 AoV Pk Grad: 7.00 Aov Mn Grad: 4.00 NATALIE Cont.VTI: 2.48 LVOT LVOT Pk Abraham: 0.84 LVOT Mn Abraham: 0.49 LVOT VTI: 0.20 LVOT Pk Grad: 3.00 LVOT Mn Grad: 1.00 LVOT Diam: 2.20 LVOT Area: 3.80 Diastolic Function MV Pk E: 0.42 MV Pk A: 0.67 E/A: 0.60 E'Medial: 6.31 E/E' Med: 6.70 E' Laterial: 7.83 E/E' Lat: 5.40 Right Ventricle TAPSE (mm): 21.20 TVS' Abraham: 11.10 Tricuspid Valve TR Pk Abraham: 1.71 TR Pk Grad: 12.00 RA Press: 3.00 RVSP: 15.00 Great Vessels Aorta Sinus of Valsalva: 3.14 2.0-3.[address] [place]: 1.98 1.7-3.4 cm Ao Asc: 3.10 2.1-3.4 cm Updated in Other Vendor System with Status of Final Robinson Nava MD electronically signed on 05/11/2023 5:33:03 AM with status of Final
--- NOTE | 2023-05-09 08:40 | CA_ITS ---
Acquisition Time: 2023-05-09 09:37:14 Total Exercise Time: 00:07:50 Test Indications: Dyspnea Medications: SEE H Protocol: QUINCY Max HR: 133 BPM 88% of Pred: 150 BPM Max BP: 200/084 mmHG Max Work Load: 9.8 METS Exercise stress test exercise 7 min 50 sec of Quincy protocol achieving 88% MPHR, with mild SOB, wiothout chest discomfort, with isolated PVCs, with normotensive response to exercise, with T wave inversion aVL and downsloping V2. Test reviewed [facility] Dr. Lock. Referred By: Deangelo Darling Overread By: Damaris Davis
== END ==
LOC: HO.CARD 08:37
PROVIDERS: Visit Provider Internal Medicine Cardiovascular Disease
DX: R07.9 Chest pain, unspecified (principal); R06.00 Dyspnea, unspecified
CPT/HCPCS: 93017; 93306; 93356

== ENCOUNTER → 2023-05-09 08:40 | Outpatient (BNV) | payer OTHER, SELFPAY | PROVIDERS: Visit Provider Nurse Practitioner | DX: R07.9 Chest pain, unspecified (principal); R06.00 Dyspnea, unspecified | CPT/HCPCS: 93016; 93018; 93306 ==

== ENCOUNTER 2023-05-24 14:18 | Outpatient (AMB) | payer OTHER, SELFPAY ==
--- NOTE | 2023-05-24 14:27 | A.OFFVIS_ITS ---
Intake Vital Signs 05/24/23 14:28 Height 5 ft 6 in Weight 141 lb 12.116 oz BMI 22.9 BP 132/78 Blood Pressure Location Lt brachial Position Sitting Pulse 68 Intake Visit Reasons: f/up stress test Intake Note: follow up after stress test PT feels good Front End Alignment Specialist Required: Yes Front End Alignment Specialist Name: VENUS Grey [id number] Allergies No Known Allergies Allergy (Verified 11/05/22 12:10) Medication List - Last Reconciled 05/24/23 by Damaris Davis NP amlodipine 1 tab PO DAILY aspirin 1 tab PO DAILY atorvastatin 80 mg PO DAILY blood sugar diagnostic (FreeStyle Lite Strips) As directed cefuroxime axetil 500 mg PO Q12H cholecalciferol (vitamin D3) 50 mcg PO DAILY ciprofloxacin HCl (Cipro) 500 mg PO BID 14 days ezetimibe 1 tab PO DAILY finasteride 5 mg PO DAILY 90 days glipizide 1 tab PO BID insulin glargine (Lantus Solostar U-100 Insulin) 50 units subcut BEDTIME lancets (TRUEplus Lancets) As directed levofloxacin 500 mg PO DAILY 7 days lidocaine 5% 1 patch topical DAILY lisinopril 1 tab PO DAILY metformin 2 tabs PO BID metoprolol succinate ER 1 tab PO DAILY tamsulosin 0.4 mg PO BEDTIME 90 days ticagrelor (Brilinta) 1 tab PO BID HPI HPI Comments History of Present Illness Details 68-year-old male presents today for a fo llow-up after stress test. He reports he has been doing well and taking all his medications. He denies any chest pains, shortness of breath, or palpitations. he reports he just feels tired if he does stairs which is only when he goes to his daughters and it is three flights of stairs. [facility] Medical History (Updated 05/25/23 @ 12:08 by Damaris Davis NP) Hypertension Hyponatremia Transaminitis Diabetes mellitus Acute prostatitis Acute pyelonephritis Acidosis, lactic Leukocytosis Fever CAD (coronary artery disease) Diabetes Social History Alcohol intake: current Alcohol intake frequency: a few times a week Patient Tobacco Use Status: Never used Tobacco service: No Current occupational status: disabled Review of Systems Const Denies weakness ENT Denies dizziness Card Denies chest pain, Denies chest pain with activity, Denies syncope, Denies rapid heart rate, Denies pedal edema, Denies edema, Denies leg edema, Denies lightheadedness, Denies palpitations, Denies dyspnea, Denies dyspnea on exertion and Denies orthopnea Resp Denies cough, Denies dyspnea and Denies dyspnea on exertion GI Denies hematochezia and Denies change in stool character Musc Denies abnormal gait, Denies muscle cramps, Denies muscle weakness, Denies numbness, Denies radiating pain into limb and Denies tingling Neuro Denies abnormal gait, Denies dizziness, Denies syncope, Denies numbness, Denies tingling and Denies weakness Endo Denies palpitations Physical Exam Vital Signs: Last Vital Signs Pulse 68 05/24/23 14:28 BP 132/78 05/24/23 14:28 BMI result Body Mass Index 22.9 Assessment & Plan Assessment & Plan (1) Hypertension: Code(s): I10 - Essential (primary) hypertension Plan Blood pressure reached 200/80 during stress test. Exercise 7 min 50 seconds on Eugene protocol. Need to verify patients blood pressure medications to adjust. Coding Level of Care Code Est Pt Level 3 (27727) Diagnoses Hypertension I10
[2023-05-24 14:28] VITALS: BP 132/78; PULSE 68; BMI 22.9
== END 2023-05-24 15:23 | disposition home or self-care (01) ==
PROVIDERS: Visit Provider Nurse Practitioner
DX: I10 Essential (primary) hypertension (principal)
CPT/HCPCS: 99213

== ENCOUNTER → 2023-05-24 14:18 | Outpatient (BNVA) | payer OTHER, SELFPAY | PROVIDERS: Visit Provider Nurse Practitioner | DX: I10 Essential (primary) hypertension (principal) | CPT/HCPCS: 99212 ==

== ENCOUNTER 2023-05-26 09:43 | Outpatient (REF) | payer OTHER, SELFPAY ==
[2023-05-26 12:24] LABS: Vitamin B12 382 pg/mL (200-900)
== END 2023-05-26 09:44 | disposition home or self-care (01) ==
LOC: HO.HHCL 09:43
PROVIDERS: Visit Provider Nurse Practitioner Primary Care
DX: R41.3 Other amnesia (principal)
CPT/HCPCS: 36415; 82607

== ENCOUNTER 2023-07-02 19:46 | Inpatient (IN) | payer OTHER, SELFPAY ==
--- NOTE | 2023-07-02 | ECG_ITS ---
Test Reason : CHEST PAIN Blood Pressure : / mmHG Vent. Rate : 066 BPM Atrial Rate : 066 BPM P-R Int : 140 ms QRS Dur : 080 ms QT Int : 404 ms P-R-T Axes : 056 -19 061 degrees QTc Int : 423 ms Normal sinus rhythm Nonspecific T wave abnormality Abnormal ECG When compared with ECG of 25-JUL-2022 03:51, No significant change was found Referred By: Generic ED Physician Electronically Signed By:VISHAL ABREU MD
--- NOTE | ~2023-07-02 | XR_ITS ---
EXAMINATION: XR SHOULDER, LEFT CLINICAL INFORMATION: Shoulder pain, rule out fracture COMPARISON: 12/01/2020 TECHNIQUE: Two views of the left shoulder. FINDINGS: Glenohumeral alignment is likely anatomic, though evaluation on the scapular Y view is limited due to positioning. No acute fracture is seen. Acromioclavicular joint is intact. XR/XR shoulder LT min 2V IMPRESSION: No acute fracture identified. Suboptimal assessment of the glenohumeral articulation due to positioning; if there is clinical concern for dislocation, this may be better assessed with an axillary view.
--- NOTE | ~2023-07-02 | XR_ITS ---
EXAMINATION: XR CHEST CLINICAL INFORMATION: Left arm/chest pain COMPARISON: 12/01/2020 TECHNIQUE: 2 views of the chest were obtained. FINDINGS: No significant abnormality is noted involving the heart, lungs, mediastinum, bony thorax or soft tissues. XR/XR chest 2V IMPRESSION: Unremarkable examination.
--- NOTE | ~2023-07-02 | XR_ITS ---
EXAMINATION: XR SHOULDER, LEFT CLINICAL INFORMATION: Left shoulder pain COMPARISON: 2 view shoulder earlier today TECHNIQUE: Axillary view of the left shoulder. FINDINGS: Single axillary view of the left shoulder shows no evidence of a dislocation. Given the axillary view as well as the AP view and Y view, there is no convincing evidence of a fracture although on the current axillary view only there is a question of some posterior cortical discontinuation. If the patient's symptoms continue, CT may be useful for further evaluation. XR/XR shoulder LT min 2V IMPRESSION: No evidence of a dislocation. If the patient's symptoms continue, CT may be useful for further evaluation.
--- NOTE | ~2023-07-02 | CT_ITS ---
EXAMINATION: CT shoulder, left CLINICAL INFORMATION: Shoulder pain, question fracture COMPARISON: X-ray 07/03/2023 TECHNIQUE: Axial imaging. Sagittal and coronal reconstructions. FINDINGS: Humeral head articulates with the glenoid. There is mild glenohumeral joint space loss, glenoid marginal spurring, correlating with mild arthritis. No acute humeral fracture is identified. Greater tuberosity subcortical cysts from degenerative changes. No glenoid or scapular fracture is identified. Acromioclavicular alignment is maintained. Mild acromioclavicular arthritis. There is subacromial spurring. Mild left sternoclavicular arthritis. Small glenohumeral joint effusion. Limited evaluation of the rotator cuff tendons on CT, without gross discontinuity/distraction identified. MRI is more sensitive for evaluation. No axillary lymphadenopathy. No adenopathy in the partially visualized mediastinum. Coronary artery calcification. No suspicious lung findings. CT/CT shoulder LT wo IV con IMPRESSION: No CT evidence of acute fracture or dislocation. Mild acromioclavicular arthritis. Small glenohumeral joint effusion. Additional/follow-up imaging as clinically indicated.
[2023-07-02 20:02] VITALS: BP 167/81; PULSE 67; RESP 18; TEMP 36.4; O2SAT 97; BMI 24.2
[2023-07-02 20:21] LABS: MANUAL DIFF FLAG NO
[2023-07-02 20:40] LABS: Basophils Absolute Auto 0.1 X10*3/uL (0.0-0.2); Basophils Percent Auto 0.7 % (0-2); Eosinophils Absolute Auto 0.1 X10*3/uL (0.0-0.4); Hemoglobin 15.3 g/dl (14.0-18.0); Imm Gran Abs Auto 0.03 X10*3/uL (0.00-0.03); Imm Gran Pct Auto 0.3 % (0.0-0.4); Lymphocytes Absolute Auto 2.5 X10*3/uL (1.2-4.9); Lymphocytes Percent Auto 27.3 % (20-40); Mean Corpuscular HGB Conc 34.8 g/dl (31.0-36.0); Mean Corpuscular Hemoglobin 29.9 pg (27.0-33.0); Mean Corpuscular Volume 85.9 fL (80.0-98.0); Mean Platelet Volume 9.7 fL (9.4-12.4); Monocytes Absolute Auto 0.5 X10*3/uL (0.1-1.2); Monocytes Percent Auto 5.7 % (2-11); Platelet Count 235 X10*3/uL (160-400); Red Blood Count 5.12 X10*6/uL (4.60-5.80); Red Cell Distribution Width 11.8 % (11.0-16.0); White Blood Count 9.2 X10*3/uL (4.8-10.8)
[2023-07-02 21:07] LABS: Alanine Aminotransferase 18 U/L (0-40); Albumin Level 4.5 g/dL (3.5-5.0); Alkaline Phosphatase 52 U/L (39-117); Anion Gap 14 (12-20); Aspartate Amino Transferase 11 U/L (5-37); Bilirubin Total 0.4 mg/dL (0.0-1.0); Blood Urea Nitrogen 24 mg/dL (9-16); Calcium 9.9 mg/dL (8.4-10.2); Carbon Dioxide 24 mmol/L (22-29); Chloride 98 mmol/L (96-108); Creatinine Clr Calc Pharmacy 29.2; Estimated Glomerular Filt Rate 31; Glucose Random 454 mg/dL (60-115); Potassium 4.3 mmol/L (3.3-5.1); Sodium 132 mmol/L (135-145); Total Protein 8.1 g/dL (6.5-8.0); Troponin-I High Sensitivity 4.5 ng/L (<3.5-35.0)
[2023-07-02 23:41] VITALS: BP 148/66; PULSE 52; RESP 16; O2SAT 99
[2023-07-03] VITALS (7 sets, daily range): BP systolic 108–181; BP diastolic 65–82; PULSE 49–66; RESP 16–18; TEMP 36.1–36.6; O2SAT 96–98
--- NOTE | 2023-07-03 01:45 | ED.GENADULT ---
HPI - General Adult General Chief complaint: General Medical Stated complaint: left should pain/heart patient? Time Seen by Provider: 07/03/23 01:43 Source: patient and family Mode of arrival: ambulatory Limitations: no limitations History of Present Illness HPI narrative: 68-year-old male with a history of hypertension, diabetes mellitus, myocardial infarction 3 years prior with 3 stents who presents emergency department for evaluation of left arm pain, urinary frequency, urgency and weight loss. The patient states that his doctor started him on a pill for his diabetes proximally 1 month prior and since that time he has not been on insulin. Patient states that he has been having increased thirst with urinary frequency. He states he is lost weight. The patient also is complaining of left shoulder pain. He does not recount any injury. The pain started 1 week prior he states that it is getting progressively worse. He states that he is having difficulty moving his shoulder joint and he is having pain when he tries to move his shoulder. He denied fever, chills, chest pain, shortness of breath, nausea vomiting. He states he is feeling tired and fatigued. Related Data Home Medications ?Medication ?Instructions ?Recorded ?Confirmed amlodipine 5 mg tablet 1 tab PO DAILY 02/06/21 03/22/23 aspirin 81 mg chewable tablet 1 tab PO DAILY 02/06/21 03/22/23 ezetimibe 10 mg tablet 1 tab PO DAILY 02/06/21 03/22/23 glipizide 5 mg tablet 1 tab PO BID diabetes mellitus 02/06/21 03/22/23 insulin glargine 100 unit/mL (3 50 unit subcut BEDTIME 02/06/21 03/22/23 mL) subcutaneous pen (Lantus Solostar U-100 Insulin) lisinopril 5 mg tablet 1 tab PO DAILY 02/06/21 03/22/23 metformin 500 mg tablet 2 tab PO BID 02/06/21 03/22/23 metoprolol succinate 25 mg 1 tab PO DAILY 02/06/21 03/22/23 tablet,extended release 24 hr ticagrelor 90 mg tablet (Brilinta) 1 tab PO BID 02/06/21 03/22/23 atorvastatin 80 mg tablet 80 mg PO DAILY 03/25/21 03/22/23 blood sugar diagnostic (FreeStyle #10 ea 03/25/21 Lite Strips) cholecalciferol (vitamin D3) 50 50 mcg PO DAILY 03/25/21 03/22/23 mcg (2,000 unit) tablet lancets 33 gauge (TRUEplus Lancets) #100 ea 03/25/21 Previous Rx's ?Medication ?Instructions ?Recorded cefuroxime axetil 500 mg tablet 500 mg PO Q12H #52 tabs 02/10/21 ciprofloxacin HCl 500 mg tablet 500 mg PO BID 14 days #28 tabs 04/24/21 (Cipro) finasteride 5 mg tablet 5 mg PO DAILY 90 days #90 tabs 05/28/21 tamsulosin 0.4 mg capsule 0.4 mg PO BEDTIME 90 days #90 caps 05/28/21 levofloxacin 500 mg tablet 500 mg PO DAILY UTI 7 days #7 tabs 11/05/22 lidocaine 5 % topical patch 1 patch topical DAILY #15 ea 11/05/22 Allergies Allergy/AdvReac Type Severity Reaction Status Date / Time No Known Allergies Allergy Verified 07/02/23 20:04 Review of Systems Review of Systems: Yes all other systems are reviewed and are negative [facility] Past Medical History Medical History (Updated 07/03/23 @ 03:08 by Felice Chinchilla MD) Hypertension Hyponatremia Transaminitis Diabetes mellitus Acute prostatitis Acute pyelonephritis Acidosis, lactic Leukocytosis Fever CAD (coronary artery disease) Diabetes Social History Social History Alcohol intake: current Alcohol intake frequency: a few times a week Patient Tobacco Use Status: Never used Tobacco Advance Directives: No Advance Directives Information Provided: No service: No Current occupational status: disabled Physical Exam ED Vital Signs: Vital Signs - 24 hr 07/02/23 20:02 07/02/23 23:41 07/03/23 02:01 Temperature 97.5 F Pulse Rate 67 52 60 Respiratory Rate 18 16 16 Blood Pressure 167/81 H 148/66 H 161/67 H Pulse Oximetry 97 99 96 Oxygen Delivery Method Room Air Room Air Room Air BMI result Body Mass Index 24.2 Vital signs did reveal an elevated blood pressure of 167/81 otherwise unremarkable Exam: General: Awake, alert in no distress Head: Normocephalic, atraumatic EENT: PERRL, Lids normal, sclera normal, conjunctiva normal, nose normal , ears normal, throat without erythema or exudates Neck: Supple, no adenopathy Lung: breath sounds symmetric, no wheezing, rales or rhonchi Chest: symmetric movement, nontender Heart: regular rate and rhythm, normal S1, S2 no murmurs or rubs Abdomen: soft, non-tender, nondistended, normal bowel sounds Back: no vertebral tenderness, no CVAT Extremities: Patient has no tenderness palpation over his right shoulder or upper extremity but has significant pain with minimal range of motion of his right shoulder joint Neuro: Awake, alert, oriented, normal speech, cranial nerves intact, moves all extremities symmetrically Psych: Pleasant, cooperative Medications Administered Discontinued Medications Generic Name Dose Route Start Last Admin Trade Name Freq PRN Reason Stop Dose Admin Sodium Chloride 1,000 mls @ 999 mls/hr 07/03/23 01:49 07/03/23 03:42 Ns IV 07/03/23 02:49 Infused .Q1H1M STA Infusion Insulin Human Regular 5 unit 07/03/23 01:49 07/03/23 02:09 Insulin Regular, Human 100 Unit/Ml 3 Ml Vial IVPUSH 07/03/23 01:50 5 unit ONCE ONE Administration Morphine Sulfate 4 mg 07/03/23 02:53 07/03/23 02:58 Morphine Sulfate 4 Mg/Ml Cartridge IVPUSH 07/03/23 02:54 4 mg ONCE STA Administration Protocol Medical Decision Making Medical Decision Making [facility] Narrative: 68-year-old male with a history of hypertension, diabetes mellitus, myocardial infarction 3 years prior with 3 stents who presents emergency department for evaluation of left arm pain, urinary frequency, urgency and weight loss. Patient states he was started on a pill 1 month prior and he stopped his insulin. He is also complaining of left shoulder pain which is gotten progressively worse over the past week, he does not recount any injury . The shoulder pain is 8 or 9/10 and is worse with movement. Vital signs revealed an elevated blood pressure otherwise unremarkable. Physical examination did reveal significant pain with range of motion of his left shoulder but no pain with palpation over the left upper extremity Differential diagnosis: ?Includes but is not limited to myocardial infarction, myocardial ischemia, left shoulder joint injury, electrolyte abnormalities, anemia Following evaluation was ordered: CBC, CMP, troponin, chest x-ray, left shoulder x-ray, EKG Patient was initially treated with the following: Morphine 4 mg IV, regular insulin 5 units IV, normal saline x1 L Course: 03:04 My interpretation patient's laboratory evaluation as follows: CBC was normal. CMP revealed elevated BUN creatinine of 24 and 2.12 above the patient's baseline. Glucose is elevated 454. Patient's 12 EKG was unremarkable Patient's chest x-ray revealed no acute disease. The patient's left shoulder x-ray did not reveal any acute fracture on my interpretation, the patient does have arthritic changes of the shoulder joint. Patient was given morphine 4 mg IV for his pain. Given the patient's noncompliance with his insulin, his elevated glucose and his acute kidney injury with elevated BUN creatinine, I do not think the patient can be managed as an outpatient and they should be hospitalized to begin restart his insulin and stabilize his diabetes mellitus. I did discuss admission with the covering hospitalist, Dr. Olmstead the patient will be admitted for further management. 06:21 Patient's repeat troponin was flat at 4.3 Radiology interpretation of the patient's left shoulder x-ray was unremarkable. Admission/Observation Consideration of admission/observation: Escalation of care including admission/observation considered Consult Healthcare Provider Management of the patient was discussed with: Hospitalist Lab Data MDM Lab Attestation statement: I reviewed the patient's lab results. 07/02/23 20:05 07/02/23 20:05 Labs: Lab Results 07/02/23 07/03/23 07/03/23 Range/Units 20:05 03:10 03:39 WBC 9.2 (4.8-10.8) X10*3/uL RBC 5.12 (4.60-5.80) X10*6/uL Hgb 15.3 (14.0-18.0) g/dl Hct 44.0 (42.0-52.0) % MCV 85.9 (80.0-98.0) fL MCH 29.9 (27.0-33.0) pg MCHC 34.8 (31.0-36.0) g/dl RDW 11.8 (11.0-16.0) % Plt Count 235 (160-400) X10*3/uL MPV 9.7 (9.4-12.4) fL Immature Gran % (Auto) 0.3 (0.0-0.4) % Neut % (Auto) 65.0 (45-73) % Lymph % (Auto) 27.3 (20-40) % [place] % (Auto) 5.7 (2-11) % Eos % (Auto) 1.0 (0-4) % Baso % (Auto) 0.7 (0-2) % Lymph # (Auto) 2.5 (1.2-4.9) X10*3/uL [place] # (Auto) 0.5 (0.1-1.2) X10*3/uL Eos # (Auto) 0.1 (0.0-0.4) X10*3/uL Baso # (Auto) 0.1 (0.0-0.2) X10*3/uL Abs Immat Gran (auto) 0.03 (0.00-0.03) X10*3/uL Absolute Neuts (auto) 6.0 (2.0-8.3) x10*3/uL Absolute Nucleated RBC 0.000 (0.0-0.012) X10*3/uL Nucleated RBC % (auto) 0.0 (0.0-0.2) /100WBC Sodium 132 L (135-145) mmol/L Potassium 4.3 (3.3-5.1) mmol/L Chloride 98 (96-108) mmol/L Carbon Dioxide 24 (22-29) mmol/L Anion Gap 14 (12-20) BUN 24 H (9-16) mg/dL Creatinine 2.12 H (0.5-1.4) mg/dL Estim Creat Clear Calc 29.2 Estimated GFR 31 POC Glucose 150 H (60-115) mg/dL Random Glucose 454 H* (60-115) mg/dL Estimat Average Glucose 260 mg/dL Hemoglobin A1c % 10.7 H (<6.0) % Calcium 9.9 (8.4-10.2) mg/dL Total Bilirubin 0.4 (0.0-1.0) mg/dL AST 11 (5-37) U/L ALT 18 (0-40) U/L Alkaline Phosphatase 52 (39-117) U/L Troponin I High Sens 4.5 4.3 (<3.5-35.0) ng/L Total Protein 8.1 H (6.5-8.0) g/dL Albumin 4.5 (3.5-5.0) g/dL Independent Interpretation I performed an independent interpretation of an: EKG and Plain X-Ray Interpretation: My independent reading of the patient's two view chest x-ray is as follows: No acute disease My independent interpretation the patient's left shoulder x-ray is as follows: No acute fracture or dislocation, patient does have arthritic changes to the shoulder joint. My independent reading of the patient's 12 EKG done at 20:07 hours is as follows: Normal sinus rhythm with a rate of 66, normal FL interval, QRS duration QTC interval, no ST segment elevation, no ST segment depression, no T-wave abnormalities, no PACs, no PVCs Radiology Impression Discussion of test interpretation with radiology: I have reviewed the radiologist's reading. Radiologist Impression: XR chest 2V IMPRESSION: Unremarkable examination. Dictated By: Marck Estrella MD XR shoulder LT min 2V IMPRESSION: No acute fracture identified. Suboptimal assessment of the glenohumeral articulation due to positioning; if there is clinical concern for dislocation, this may be better assessed with an axillary view. Dictated By: Reinaldo Hunt MD Independent Historian Clinical information obtained from an independent historian. History obtained from or confirmed by: Other (Daughter) Chronic Conditions Patient?s care impacted by: Diabetes Discharge Plan Discharge Clinical Impression: Acute hyperglycemia, Acute kidney injury, Acute pain of left shoulder, Noncompliance with medications Patient Disposition: Admitted As Inpatient
[2023-07-03] MEDS: 0.9 % Sodium Chloride 1,000 ML 999 ML IV ×2 (02:09→06:28)
[2023-07-03] MEDS: Insulin Regular, Human 100 UNIT/ML 3 ML VIAL IVPUSH (02:09)
[2023-07-03] MEDS: Morphine Sulfate 4 MG/ML CARTRIDGE IVPUSH (02:58)
[2023-07-03 03:42] LABS: Troponin-I High Sensitivity 4.3 ng/L (<3.5-35.0)
[2023-07-03 03:44] LABS: Glucose, Whole Blood 150 mg/dL (60-115)
--- NOTE | 2023-07-03 05:17 | PC.NURSE ---
Pt ambulatory to the restroom.
[2023-07-03 05:22] LABS: Estimated Average Glucose 260 mg/dL; Hemoglobin A1c % 10.7 % (<6.0)
[2023-07-03] MEDS: Insulin Glargine,Hum.rec.anlog 100 UNIT/ML 10 ML VIAL 10 UNIT SUBCUT (06:28)
[2023-07-03 07:44] LABS: Anion Gap 12 (12-20); Blood Urea Nitrogen 21 mg/dL (9-16); Calcium 8.5 mg/dL (8.4-10.2); Carbon Dioxide 22 mmol/L (22-29); Chloride 105 mmol/L (96-108); Creatinine Clr Calc Pharmacy 54.8; Estimated Glomerular Filt Rate > 60; Glucose Random 270 mg/dL (60-115); Magnesium 1.9 mg/dL (1.6-2.6); Potassium 3.7 mmol/L (3.3-5.1); Sodium 135 mmol/L (135-145)
[2023-07-03 07:54] LABS: Glucose, Whole Blood 238 mg/dL (60-115)
[2023-07-03] MEDS: amLODIPine Besylate 5 MG TABLET PO (08:08)
[2023-07-03] MEDS: Cyclobenzaprine HCl 5 MG TABLET PO ×3 (08:44→21:17)
[2023-07-03] MEDS: Acetaminophen 325 MG TABLET 650 MG PO ×3 (08:44→21:18)
[2023-07-03] MEDS: Lidocaine 4 % Patch ADH..PATCH 1 PATCH TRANSDERMA (08:44)
--- NOTE | 2023-07-03 08:46 | PC.NURSE ---
pt seen by dr. jacinto/aware of plan of care moving forward. xray completed in ED. medication administered per provider order. admission worksheet completed. pt waiting to be transported upstairs at this time.
[2023-07-03 09:10] LABS: Glucose, Whole Blood 247 mg/dL (60-115)
--- NOTE | 2023-07-03 09:59 | P.HPHOSP_ITS ---
History of Present Illness Date of Service: 07/03/23 Attending physician on admission: David Goyal Chief Complaint: uncontrolled dm,left shoulder pain 68y/o M with pmhx Htn, diabetes mellitus, myocardial infarction 3 years prior with 3 stents came to ED-for left arm pain, urinary frequency, urgency and weight loss.he said his insulin was stopped by primary doctor due to decreased appetite. In addition patient had some atypical chest tightness yesterday, arm pain left side for 2 weeks -says it improves with standing and walking and but slowly becoming worse ,rom limited due to that , denies any injury to arm or numbness or weakness ,more pain in shoulder area going down to upper arm ,rom limited espiciaily lifting above shoulder levels. uncontrolled dm:his pcp started him on a pill for his diabetes proximally 1 month prior and since that time he has not been on insulin. Patient states that he has been having increased thirst with urinary frequency and lost some weight. currently Denies chest pain or shortness of breath or abdominal pain or fever or chills or nausea or vomiting or cough Denies any weakness or numbness or any urinary c/o. labs ,imaging , ekg reviewed: trops neg ,ekg nsr ,no new st chnages cbc fine bmp: bun/ cr: 24/ 2.1 , fs intailly 450's Hba1c levels 10.7 lfts normal cxr: seems fine Left shoulder xray-axillary view only there is a question of some posterior cortical discontinuation, Ct left shoulder pending ed course; received morphine 4 mg IV, IV fluids and insulin 5 units. Fingersticks are improving in 200 range, shoulder pain seems similar, chest pain resolved. BUN and creatinine improving Review of Systems 2 Review of Systems: Yes all other systems are reviewed and are negative [facility] Medical History Hypertension Hyponatremia Transaminitis Diabetes mellitus Acute prostatitis Acute pyelonephritis Acidosis, lactic Leukocytosis Fever CAD (coronary artery disease) Diabetes Social History Household Members: None Housing: Apartment Do you presently have visiting nurse or other home services: No Alcohol intake: current Alcohol intake frequency: a few times a week Patient Tobacco Use Status: Never used Tobacco Use of substances other than those prescribed or required for medical reasons: No Have you been hit, kicked, punched, or otherwise hurt by someone within the past year? If so, by whom?: No Do you feel safe in your current relationship?: No Current Relationship Is there a partner from a previous relationship who is making you feel unsafe now?: No Are you made to feel afraid or neglected: No Advance Directives: No Advance Directives Information Provided: No Do you have thoughts of harming others: None Do you have a plan to hurt others: No Plan Recently lost weight without trying: Yes How much weight loss: Unsure Eating poorly because of decreased appetite: Yes Nutrition screen score: 5 Nutrition Risks: No Nutritional Risk Poor oral hygiene: No service: No Current occupational status: [employer] Allergies Allergy/AdvReac Type Severity Reaction Status Date / Time No Known Allergies Allergy Verified 07/02/23 20:04 Active Medications: Current Medications Acetaminophen (Acetaminophen 325 Mg Tablet) 650 mg PO Q6H [facility] Last Admin: 07/03/23 08:44 Dose: 650 mg Amlodipine Besylate (Amlodipine Besylate 5 Mg Tablet) 5 mg PO DAILY [facility]; Protocol Last Admin: 07/03/23 08:08 Dose: 5 mg Cyclobenzaprine HCl (Cyclobenzaprine Hcl 5 Mg Tablet) 5 mg PO TID [facility] Last Admin: 07/03/23 08:44 Dose: 5 mg Glucose (Glucose Gel 15 Gm Gel..Gram.) 15 gm PO Q15M PRN; Protocol PRN Reason: per Hypoglycemia Standing Ord. Dextrose (D10) 250 mls @ 750 mls/hr IV Q15M PRN; Protocol PRN Reason: per Hypoglycemia Standing Ord. Insulin Glargine (Insulin Glargine,Hum.Rec.Anlog 100 Unit/Ml 10 Ml Vial) 10 unit SUBCUT DAILY [facility] Last Admin: 07/03/23 06:28 Dose: 10 unit Insulin Human Lispro (Insulin Lispro 100 Unit/Ml 3 Ml Vial) 0 unit SUBCUT QIDACHS [facility]; Protocol Last Admin: 07/03/23 08:09 Dose: Not Given Lidocaine (Lidocaine 4 % Patch Adh..Patch) 1 patch TRANSDERMA DAILY [facility]; Protocol Last Admin: 07/03/23 08:44 Dose: 1 patch Oxycodone HCl (Oxycodone Hcl Immed Release 5 Mg Tablet) 5 mg PO Q4H PRN PRN Reason: Pain, Mild (Pain Scale 1-3) Sodium Chloride (0.9 % Sodium Chloride Flush 3 Ml Syringe) [facility] Last Admin: 07/03/23 08:08 Dose: Not Given Home Medications ?Medication ?Instructions ?Recorded ?Confirmed ?Last Taken ?Type amlodipine 5 mg tablet 1 tab PO DAILY 02/06/21 03/22/23 02/06/21 History aspirin 81 mg chewable tablet 1 tab PO DAILY 02/06/21 03/22/23 02/06/21 History ezetimibe 10 mg tablet 1 tab PO DAILY 02/06/21 03/22/23 02/06/21 History glipizide 5 mg tablet 1 tab PO BID diabetes mellitus 02/06/21 03/22/23 02/06/21 History insulin glargine 100 unit/mL (3 50 unit subcut BEDTIME 02/06/21 03/22/23 02/05/21 History mL) subcutaneous pen (Lantus Solostar U-100 Insulin) lisinopril 5 mg tablet 1 tab PO DAILY 02/06/21 03/22/23 02/06/21 History metformin 500 mg tablet 2 tab PO BID 02/06/21 03/22/23 02/06/21 History metoprolol succinate 25 mg 1 tab PO DAILY 02/06/21 03/22/23 02/06/21 History tablet,extended release 24 hr ticagrelor 90 mg tablet (Brilinta) 1 tab PO BID 02/06/21 03/22/23 02/06/21 History atorvastatin 80 mg tablet 80 mg PO DAILY 03/25/21 03/22/23 Unknown History blood sugar diagnostic (FreeStyle #10 ea 03/25/21 Unknown History Lite Strips) cholecalciferol (vitamin D3) 50 50 mcg PO DAILY 03/25/21 03/22/23 Unknown History mcg (2,000 unit) tablet lancets 33 gauge (TRUEplus Lancets) #100 ea 03/25/21 Unknown History dulaglutide 1.5 mg/0.5 mL mg subcut QWEEK 07/03/23 07/03/23 Unknown History subcutaneous pen injector (Trulicity) empagliflozin 10 mg tablet 10 mg PO QAM 07/03/23 Unknown History (Jardiance) ketorolac 0.5 % eye drops drp ophthalmic (eye) 07/03/23 Unknown History rosuvastatin 10 mg tablet 10 mg PO QAM 07/03/23 Unknown History Physical Exam 2 Vital Signs and Narrative: Vital Signs: Last Vital Signs Temp 97.4 F 07/03/23 09:16 Pulse 66 07/03/23 09:16 Resp 16 07/03/23 09:16 BP 148/72 H 07/03/23 09:16 Pulse Ox 98 07/03/23 09:16 O2 Del Method Room Air 07/03/23 09:16 BMI result Body Mass Index 24.2 Appearance: Alert.? Oriented X3.?pain. Eyes: Pupils equal, round and reactive to light.? Sclera nonicteric.? ENT: Pharynx normal.? Moist mucous membranes. cvs: rrr, [id number] . res: clear to auscultation ,no rhonchii or wheezing abd: no rebound or guarding ,nt, bs present. ext pulses present , no cyanosis . Ms: ROM -limited due to pain-lifting above shoulder levels,no point ternderness or weakness /numbness or erythema neck spine -no deformities ,rom intact. neuro: axo3 , nonfocal. Results Labs 07/02/23 20:05 07/03/23 07:14 Labs: Laboratory Results - last 24 hr 07/02/23 07/03/23 07/03/23 20:05 03:10 03:39 MCV 85.9 MCH 29.9 MCHC 34.8 RDW 11.8 Plt Count 235 MPV 9.7 Immature Gran % (Auto) 0.3 Neut % (Auto) 65.0 Lymph % (Auto) 27.3 [place] % (Auto) 5.7 Eos % (Auto) 1.0 Baso % (Auto) 0.7 Lymph # (Auto) 2.5 [place] # (Auto) 0.5 Eos # (Auto) 0.1 Baso # (Auto) 0.1 Abs Immat Gran (auto) 0.03 Absolute Neuts (auto) 6.0 Absolute Nucleated RBC 0.000 Nucleated RBC % (auto) 0.0 Hold Purple Top Anion Gap 14 Estim Creat Clear Calc 29.2 Estimated GFR 31 POC Glucose 150 H Random Glucose 454 H* Estimat Average Glucose 260 Hemoglobin A1c % 10.7 H Calcium 9.9 Magnesium Total Bilirubin 0.4 AST 11 ALT 18 Alkaline Phosphatase 52 Troponin I High Sens 4.5 4.3 Total Protein 8.1 H Albumin 4.5 07/03/23 07/03/23 07/03/23 07:13 07:14 07:41 MCV MCH MCHC RDW Plt Count MPV Immature Gran % (Auto) Neut % (Auto) Lymph % (Auto) [place] % (Auto) Eos % (Auto) Baso % (Auto) Lymph # (Auto) [place] # (Auto) Eos # (Auto) Baso # (Auto) Abs Immat Gran (auto) Absolute Neuts (auto) Absolute Nucleated RBC Nucleated RBC % (auto) Hold Purple Top SEE NOTE Anion Gap 12 Estim Creat Clear Calc 54.8 Estimated GFR > 60 POC Glucose 238 H Random Glucose 270 H Estimat Average Glucose Hemoglobin A1c % Calcium 8.5 D Magnesium 1.9 Total Bilirubin AST ALT Alkaline Phosphatase Troponin I High Sens Total Protein Albumin 07/03/23 09:04 MCV MCH MCHC RDW Plt Count MPV Immature Gran % (Auto) Neut % (Auto) Lymph % (Auto) [place] % (Auto) Eos % (Auto) Baso % (Auto) Lymph # (Auto) [place] # (Auto) Eos # (Auto) Baso # (Auto) Abs Immat Gran (auto) Absolute Neuts (auto) Absolute Nucleated RBC Nucleated RBC % (auto) Hold Purple Top Anion Gap Estim Creat Clear Calc Estimated GFR POC Glucose 247 H Random Glucose Estimat Average Glucose Hemoglobin A1c % Calcium Magnesium Total Bilirubin AST ALT Alkaline Phosphatase Troponin I High Sens Total Protein Albumin Imaging Radiologist's Impressions: Impressions Chest X-Ray 07/02/23 20:19 IMPRESSION: Unremarkable examination. Shoulder X-Ray 07/03/23 02:57 IMPRESSION: No acute fracture identified. Suboptimal assessment of the glenohumeral articulation due to positioning; if there is clinical concern for dislocation, this may be better assessed with an axillary view. Assessment and Plan (1) Noncompliance with medications: Status: Acute (2) Acute pain of left shoulder: Status: Acute (3) Acute kidney injury: Status: Acute (4) Acute hyperglycemia: Status: Acute Plan 68y/o M with pmhx Htn, diabetes mellitus, myocardial infarction 3 years prior with 3 stents came to ED-for left arm pain, urinary frequency, urgency and weight loss.he said his insulin was stopped by primary doctor due to decreased appetite. 1. dm type 2 with hypeglycemia hba1c 10.7 fs improving continue current insulin reimen 2. sukh : sec to dehydration and #1. improving with lila and continue ivf for today. moniter renal function avoid nephrotoxic meds. 3.Left shoulder pain: seems MS as wellas some subjective component shoulder xray-? cortical discontinuation Ct shoulder pending continue pain meds/muscle relaxer pt/ot 4.htn : continue home meds once reconcilled. 5. chest pain resolved,has hx of cad s/p stents: trops and ekg seems fine echo on 05/09/23: The left ventricular systolic function is low normal. The visually estimated ejection fraction is between 50-55%. There is no evidence of regional wall motion abnormalities. conitnue asa,brilianta ,statin,bb dvt prophylax: lovenox s/c. Ongoing inpatient needs for 2 midnight stay: multifactroial - dm with hyperglycemia symptomatic, sukh , shoulder pain -need iv hydration ,dm insulin regimen adjustement, renal function and electrolytes monitering ,shoulder pain as well as abnormal shoulder imaginging workup. Above management discussed with the patient in detail length he understand and in agreement with the above plan, time spent 70 minutes and 50% time spent on counseling. patient is full code. Quality Stroke Does the patient have a stroke diagnosis?: No VTE Prior VTE?: No VTE Risk Level:: Medical - low VTE Device Contraindication: Treatment Not Indicated VTE Drug Contraindication: Treatment Not Indicated
--- NOTE | 2023-07-03 10:29 | MHC.CM.PN ---
IMM DELIVERED PT LIVES ALONE AND HAS 7 HRS/WK [employer] (DAUGHTER) INDEPENDENT WITH MOBILITY. +HCP PCP MAC PEREZ DP: HOME, NO SERVICES ANTICIPATED. DAUGHTER WILL TRANSPORT HOME. CM WILL CONTINUE TO FOLLOW FOR ANY CHANGE IN DC NEEDS/PLAN
--- NOTE | 2023-07-03 11:03 | MHC.CLN ---
NUTRITION CONSULT FOR UNINTENTIONAL WEIGHT LOSS. REVIEW OF EMR SHOWS WEIGHT GAIN X ONE MONTH +5.9%; WEIGHT GAIN X 3 MONTHS +2.4%. A1C=10.7 SHOWING POOR BLOOD GLUCOSE CONTROL. HX NON COMPLIANCE WITH DM MEDS. DIET=DIABETIC 2000 KCALS. NO NEW NUTRITION INTERVENTIONS AT THIS TIME.
[2023-07-03 11:28] LABS: Glucose, Whole Blood 192 mg/dL (60-115)
[2023-07-03] MEDS: Insulin Lispro 100 UNIT/ML 3 ML VIAL SUBCUT ×3 (11:56→21:18)
[2023-07-03] MEDS: Lactated Ringers 1,000 ML 80 ML IVCONT (12:03)
--- NOTE | 2023-07-03 15:19 | PHA.MEDREC ---
Pharmacy Consult ? Medication Reconciliation Pharmacy has completed the medication reconciliation. Patient has no idea what he is taking. Reports he takes medications for blood pressure, diabetes, and his heart. Patient reported he does not use any injectable medicaitons. I spoke with pharamcist at [facility]. Patient has not filled glipizde and brinilnate since november 07, therefore removed from medication list. Patient is a month late on refilling Amlodipine, Jaridance, Metformin, Metoprolol and Lisinopril. Due to patient's non adherence, I left medications on home med list. Kiera Guidry, JesusD
[2023-07-03 16:13] LABS: Glucose, Whole Blood 346 mg/dL (60-115)
[2023-07-03] MEDS: lisinopriL 5 MG TABLET PO (16:53)
[2023-07-03] MEDS: Ezetimibe 10 MG TABLET PO (16:53)
[2023-07-03] MEDS: Cholecalciferol (Vitamin D3) 25 MCG TABLET 50 MCG PO (16:53)
[2023-07-03] MEDS: Metoprolol Succinate ER 25 MG TAB.ER.24H PO (16:53)
[2023-07-03] MEDS: Aspirin 81 MG TAB.CHEW PO (16:53)
[2023-07-03] MEDS: Empagliflozin 10 MG TABLET PO (16:53)
[2023-07-03] MEDS: Atorvastatin Calcium 40 MG TABLET PO (16:53)
[2023-07-03] MEDS: Finasteride 5 MG TABLET PO (16:53)
[2023-07-03 20:36] LABS: Glucose, Whole Blood 300 mg/dL (60-115)
[2023-07-03] MEDS: Ketorolac Tromethamine 0.5% Op 5 ML DROPS 1 DROP EYE-LEFT (21:18)
[2023-07-04] MEDS: Lactated Ringers 1,000 ML 80 ML IVCONT (00:09)
[2023-07-04] MEDS: 0.9 % Sodium Chloride Flush 3 ML SYRINGE IVFLUSH (00:11)
[2023-07-04] MEDS: oxyCODONE HCl Immed Release 5 MG TABLET PO (00:18)
[2023-07-04] MEDS: Acetaminophen 325 MG TABLET 650 MG PO ×2 (02:14→09:02)
[2023-07-04 03:24] VITALS: BP 121/72; PULSE 50; RESP 18; TEMP 36.1; O2SAT 97
[2023-07-04 06:10] LABS: Anion Gap 12 (12-20); Blood Urea Nitrogen 16 mg/dL (9-16); Calcium 8.6 mg/dL (8.4-10.2); Carbon Dioxide 23 mmol/L (22-29); Chloride 106 mmol/L (96-108); Estimated Glomerular Filt Rate > 60; Glucose Random 130 mg/dL (60-115); Potassium 3.6 mmol/L (3.3-5.1); Sodium 137 mmol/L (135-145)
[2023-07-04 06:53] VITALS: BP 100/54; PULSE 54; RESP 16; TEMP 36.6; O2SAT 97
[2023-07-04 07:01] LABS: Glucose, Whole Blood 115 mg/dL (60-115)
--- NOTE | 2023-07-04 07:51 | P.DS_ITS ---
DS: Providers Provider Date of Service: 07/04/23 Date of admission: 07/03/23 06:02 Primary care physician: Davina Hooker NP DS: Diagnosis Discharge Diagnosis (1) Noncompliance with medications: Status: Acute (2) Acute pain of left shoulder: Status: Acute (3) Acute kidney injury: Status: Acute (4) Acute hyperglycemia: Status: Acute DS: Summary Hospital Course Hospital Course: History and physical as per admitting provider. 68y/o M with pmhx Htn, diabetes mellitus, myocardial infarction 3 years prior with 3 stents came to ED-for left arm pain, urinary frequency, urgency and weight loss.he said his insulin was stopped by primary doctor due to decreased appetite. In addition patient had some atypical chest tightness yesterday, arm pain left side for 2 weeks -says it improves with standing and walking and but slowly becoming worse ,rom limited due to that , denies any injury to arm or numbness or weakness ,more pain in shoulder area going down to upper arm ,rom limited espiciaily lifting above shoulder levels. uncontrolled dm:his pcp started him on a pill for his diabetes proximally 1 month prior and since that time he has not been on insulin. Patient states that he has been having increased thirst with urinary frequency and lost some weight. currently Denies chest pain or shortness of breath or abdominal pain or fever or chills or nausea or vomiting or cough Denies any weakness or numbness or any urinary c/o. labs ,imaging , ekg reviewed: trops neg ,ekg nsr ,no new st chnages cbc fine bmp: bun/ cr: 24/ 2.1 , fs intailly 450's Hba1c levels 10.7 lfts normal cxr: seems fine Left shoulder xray-axillary view only there is a question of some posterior cortical discontinuation, Ct left shoulder pending ed course; received morphine 4 mg IV, IV fluids and insulin 5 units. Fingersticks are improving in 200 range, shoulder pain seems similar, chest pain resolved. BUN and creatinine improving 68-year-old man treated for left shoulder pain, CT of the shoulder was negative for acute fracture dislocation, pain seems more musculoskeletal. Treated with oxycodone and Flexeril. Seen and evaluated by Physical therapy recommended home treatment. Will send home with a few days of Flexeril and lidocaine patches. Patient also treated for LISSET secondary to dehydration, creatinine initially 2.12, resolved pretty quickly with IV fluids now back to baseline. Patient had an episode of chest pain, due to his history of coronary artery disease troponin was checked and was within normal limits, EKG without any acute ischemic changes. Previous echocardiogram from April 2023 showed EF of 50- 55% with no evidence of regional wall motion abnormalities. Patient had no other episodes of chest pain, therefore no further workup for this at this time. Hypertension. Continue home medications Diabetes mellitus type 2. A1c 10.7. Will send home with diabetic diet information in Chadian for patient and family. Continue current home medications Time Attestation Discharge Coordination Time (in mins): 40 Quality: Safe Use of Opioids Does Pt have an Active Cancer Diagnosis on the Problem List?: No Quality: Stroke Does the patient have a stroke diagnosis?: No Physical Exam Vital Signs: Vital Signs: Last Vital Signs Temp 98 F 07/04/23 06:53 Pulse 54 07/04/23 06:53 Resp 16 07/04/23 06:53 BP 100/54 L 07/04/23 06:53 Pulse Ox 97 07/04/23 06:53 O2 Del Method Room Air 07/04/23 06:53 BMI result Body Mass Index 24.2 Appearing in no acute distress head is normocephalic atraumatic eyes pupils are PERRLA sclera is anicteric mouth throat mucous membranes are intact and moist neck is supple no lymphadenopathy, no JVD noted lung sounds are clear to auscultation heart regular rate rhythm, clear S1, S2 positive bowel sounds, abdomen is soft, nontender neuro patient is alert x3, no focal deficits DS: Data Data Completed and Pending Labs on day of discharge: Laboratory Results - last 24 hr 07/03/23 07/03/23 07/03/23 07:41 09:04 11:19 Hold Purple Top Sodium Potassium Chloride Carbon Dioxide Anion Gap BUN Creatinine Estim Creat Clear Calc Estimated GFR POC Glucose 238 H 247 H 192 H Random Glucose Calcium 07/03/23 07/03/23 07/04/23 16:06 20:33 05:33 Hold Purple Top SEE NOTE Sodium 137 Potassium 3.6 Chloride 106 Carbon Dioxide 23 Anion Gap 12 BUN 16 Creatinine 1.05 Estim Creat Clear Calc 59.0 Estimated GFR > 60 POC Glucose 346 H 300 H Random Glucose 130 H Calcium 8.6 07/04/23 06:53 Hold Purple Top Sodium Potassium Chloride Carbon Dioxide Anion Gap BUN Creatinine Estim Creat Clear Calc Estimated GFR POC Glucose 115 Random Glucose Calcium Discharge Plan Discharge Anticipated Discharge Date/Time: 07/04/23 07:49 Patient Disposition: Home Health Service Discharge Diagnosis: Shoulder pain Referrals: Davina Hooker, [employer] PROFESSOR [Primary Care Provider] - 1 Week Discharge Medications: New lidocaine [Lidocaine Pain Relief] 4 % Adhesive Patch,Medicated 1 patch transdermal DAILY Qty: 10 0RF Protocol: Apply to: Apply to: Affected area cyclobenzaprine 5 mg Tablet 5 mg PO TID Qty: 12 0RF Continued finasteride 5 mg tablet 5 mg PO DAILY 90 Days Qty: 90 1RF metformin 500 mg tablet 2 tab PO BID amlodipine 5 mg tablet 1 tab PO DAILY aspirin 81 mg tablet,chewable 1 tab PO DAILY lisinopril 5 mg tablet 1 tab PO DAILY metoprolol succinate 25 mg tablet extended release 24 hr 1 tab PO DAILY ezetimibe 10 mg tablet 1 tab PO DAILY ketorolac 0.5 % drops 1 drp ophthalmic-Left TID rosuvastatin 10 mg tablet 10 mg PO QAM Jardiance 10 mg tablet 10 mg PO QAM (DME) lancets [TRUEplus Lancets] 33 gauge misc See Rx Instructions topical .MEDSUPPLY Qty: 100 Rx Instructions: As directed (DME) FreeStyle Lite Strips Strip See Rx Instructions Not Applicable TID Qty: 10 Rx Instructions: As directed cholecalciferol (vitamin D3) 50 mcg (2,000 unit) tablet 50 mcg PO DAILY Discharge Orders: Discharge Order (Routine); Ordered 07/04/23 Ordered By: Constance Kruger Diet: Diabetic diet Activity on Discharge: As tolerated Stand Alone Forms: Patient Portal Discharge page Print Language: Chadian Care Plan Goals: Follow diabetic diet Health Concerns: Shoulder pain Plan of Treatment: Follow-up with primary care provider as needed Take all medications as prescribed Assessment: Discharge summary
[2023-07-04 09:02] VITALS: BP 100/54
[2023-07-04] MEDS: Cyclobenzaprine HCl 5 MG TABLET PO (09:02)
[2023-07-04] MEDS: Insulin Glargine,Hum.rec.anlog 100 UNIT/ML 10 ML VIAL 10 UNIT SUBCUT (09:02)
[2023-07-04] MEDS: Finasteride 5 MG TABLET PO (09:02)
[2023-07-04] MEDS: Empagliflozin 10 MG TABLET PO (09:02)
[2023-07-04] MEDS: lisinopriL 5 MG TABLET PO (09:02)
[2023-07-04] MEDS: Cholecalciferol (Vitamin D3) 25 MCG TABLET 50 MCG PO (09:02)
[2023-07-04] MEDS: Atorvastatin Calcium 40 MG TABLET PO (09:02)
[2023-07-04 09:03] VITALS: BP 100/54
[2023-07-04] MEDS: amLODIPine Besylate 5 MG TABLET PO (09:03)
[2023-07-04] MEDS: Aspirin 81 MG TAB.CHEW PO (09:03)
[2023-07-04] MEDS: Lidocaine 4 % Patch ADH..PATCH 1 PATCH TRANSDERMA (09:04)
[2023-07-04] MEDS: Ketorolac Tromethamine 0.5% Op 5 ML DROPS 1 DROP EYE-LEFT (09:04)
[2023-07-04] MEDS: Ezetimibe 10 MG TABLET PO (09:04)
[2023-07-04 11:09] LABS: Glucose, Whole Blood 245 mg/dL (60-115)
--- NOTE | 2023-07-04 11:48 | MHC.CM.PN ---
DP: PT HAS BEEN MEDICALLY CLEARED FOR DC HOME WITH NEW [facility] FOR SN VISITS. [facility] HAS BEEN NOTIFIED OF TODAY'S DC. PT HAS OWN RIDE HOME.
--- NOTE | 2023-07-04 12:22 | P.F2F_ITS ---
Service Date Service Date: 07/04/23 Encounter Date of encounter: 07/04/23 Reasons for Services Signs and symptoms assessed: Left shoulder pain-musculoskeletal Reason for physical therapy: home safety and mobility and therapeutic exercises (Left shoulder pain) Homebound: Leaving the home is medically contraindicated at this time without the asist of a device and/or another person due th the listed conditions above and below. Reason homebound: weakness related to hospital stay Certification: Based on the above findings, I certify that this patient is confined to the home and needs intermittent nursing home care, physical therapy and/or speech therapy, or continues to need occupational therapy. The patient is under my care, and I have initiated the establishment of the plan of care. The patient will be followed by a physician who will periodically review the plan of care. Time Spent With Patient Time: Total time managing care of this patient today ____ minutes.
== END 2023-07-04 12:02 | disposition home or self-care (01) | DRG 638 ==
LOC: HO.ED 07-03 03:08 → HO.EDOVER 07-03 06:09 → HO.S3 07-03 07:52
PROVIDERS: Internal Medicine; Admitting Provider Internal Medicine; Emergency Provider Emergency Medicine Emergency Medical Services; PCP Nurse Practitioner Primary Care; Visit Provider Nurse Practitioner Acute Care
DX: E11.65 Type 2 diabetes mellitus with hyperglycemia (principal); N17.9 Acute kidney failure, unspecified; I25.10 Atherosclerotic heart disease of native coronary artery without angina pectoris; E86.0 Dehydration; M25.512 Pain in left shoulder; Z91.148 Patient's other noncompliance with medication regimen for other reason; Z95.5 Presence of coronary angioplasty implant and graft; I10 Essential (primary) hypertension; Z79.82 Long term (current) use of aspirin; Z79.4 Long term (current) use of insulin; Z79.84 Long term (current) use of oral hypoglycemic drugs; Z79.899 Other long term (current) drug therapy
CPT/HCPCS: 36415; 71046; 73030; 73200; 80048; 80053; 82947; 83036; 83735; 84484; 85025; 93005; 97161; 97165; 99285; J2270; J7120

== ENCOUNTER → 2023-07-02 20:07 | Outpatient (BNV) | payer OTHER, SELFPAY | PROVIDERS: Admitting Provider Internal Medicine; Emergency Provider Emergency Medicine Emergency Medical Services; PCP Nurse Practitioner Primary Care; Visit Provider Internal Medicine Cardiovascular Disease | DX: R94.31 Abnormal electrocardiogram [ECG] [EKG] (principal) | CPT/HCPCS: 93010 ==

== ENCOUNTER → 2023-07-03 06:02 | Outpatient (BNV) | payer OTHER, SELFPAY | PROVIDERS: Admitting Provider Internal Medicine; Emergency Provider Emergency Medicine Emergency Medical Services; PCP Nurse Practitioner Primary Care; Visit Provider Internal Medicine | DX: N17.9 Acute kidney failure, unspecified (principal); E11.65 Type 2 diabetes mellitus with hyperglycemia | CPT/HCPCS: 99222; 99239; G0180 ==

== ENCOUNTER 2024-04-13 18:55 | Emergency (ER) | payer OTHER, SELFPAY ==
--- NOTE | ~2024-04-13 | CT_ITS ---
CLINICAL HISTORY: Severe, right flank pain R O ureteral stone CT abdomen and pelvis without contrast Comparison: CT/REG/DC/SR - CT ABDOMEN PELVIS WO IV CON - 11/05/22 13:[address]/DC/SR - CT ABDOMEN PELVIS W CON - 04/24/21 19:04 EST Findings: No hydronephrosis or ureteral stone. 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 Left nephrolithiasis measures 3 mm. No bladder stone. Wall thickening of the bladder, also present on the prior studies. The prostate measures 5.1 cm in transverse dimension with intravesicular extension No consolidation at the lung bases. Underdistended gallbladder without gallstones visible on CT. Right renal cyst. Subcentimeter hyperattenuating right renal lesion, indeterminate. The other solid organs are normal. No bowel wall thickening or dilation. A normal appendix is visualized measuring default valuemm, containing intraluminal air and without periappendiceal stranding. No aneurysm. Severe calcified atherosclerotic disease. No lymphadenopathy. No ascites. No acute fracture. Impression: No hydronephrosis, ureteral or bladder stone. Chronic wall thickening of the bladder with enlargement of the prostate an intravesicular extension likely indicates chronic outlet obstruction. This document has been electronically signed by: Clementina Chao MD on 04/13/2024 22:10:02
[2024-04-13 19:03] VITALS: BP 156/71; PULSE 63; RESP 16; TEMP 36.6; O2SAT 99; BMI 24.2
--- NOTE | 2024-04-13 19:05 | ED.ABDPAIN ---
HPI - Abdominal Pain General Chief Complaint: Back Pain/Injury Stated Complaint: right side pain Time Seen by Provider: 04/13/24 20:52 Source: patient Mode of arrival: ambulatory Limitations: language barrier ( Patient is [place]ian-speaking only, [facility] interpreter for the deaf was used) History of Present Illness ED Provider: Dr. Felice Chinchilla HPI narrative: 69-year-old male with history of hypertension, hyponatremia, pyelonephritis, coronary disease, diabetes who presents emergency department for evaluation right flank/ lower back pain with symptoms coming on gradually last night. Patient describes the pain is a constant, throbbing pain which is worse with movement. The pain is 8/10. He took acetaminophen with no relief for the pain. He denied fever, chills, nausea, vomiting, diarrhea, frequency, urgency or dysuria. This is 1st episode of this type of pain. He denies any injury or trauma to his back. Related Data Home Medications ?Medication ?Instructions ?Recorded ?Confirmed amlodipine 5 mg tablet 1 tab PO DAILY 02/06/21 07/03/23 aspirin 81 mg chewable tablet 1 tab PO DAILY 02/06/21 07/03/23 ezetimibe 10 mg tablet 1 tab PO DAILY 02/06/21 07/03/23 lisinopril 5 mg tablet 1 tab PO DAILY 02/06/21 07/03/23 metformin 500 mg tablet 2 tab PO BID 02/06/21 07/03/23 metoprolol succinate 25 mg 1 tab PO DAILY 02/06/21 07/03/23 tablet,extended release 24 hr blood sugar diagnostic (FreeStyle #10 ea 03/25/21 Lite Strips) cholecalciferol (vitamin D3) 50 50 mcg PO DAILY 03/25/21 07/03/23 mcg (2,000 unit) tablet lancets 33 gauge (TRUEplus Lancets) #100 ea 03/25/21 empagliflozin 10 mg tablet 10 mg PO QAM 07/03/23 07/03/23 (Jardiance) ketorolac 0.5 % eye drops 1 drp ophthalmic-Left TID 07/03/23 07/03/23 rosuvastatin 10 mg tablet 10 mg PO QAM 07/03/23 07/03/23 Previous Rx's ?Medication ?Instructions ?Recorded finasteride 5 mg tablet 5 mg PO DAILY 90 days #90 tabs 05/28/21 cyclobenzaprine 5 mg tablet 5 mg PO TID #12 tabs 07/04/23 insulin glargine 100 unit/mL (3 20 unit (0.2 mL) subcut QPM #15 mL 07/04/23 mL) subcutaneous pen (Lantus Solostar U-100 Insulin) lidocaine 4 % topical patch 1 patch transdermal DAILY #10 ea 07/04/23 (Lidocaine Pain Relief) pen needle, diabetic 32 gauge x #100 ea 07/04/23 1/4 acetaminophen 500 mg tablet 1,000 mg (2 x 500 mg) PO Q6H PRN 04/13/24 (Tylenol Extra Strength) fever or pain #20 tabs cyclobenzaprine 5 mg tablet 5 mg PO TID PRN muscle spasm or 04/13/24 pain #14 tabs ibuprofen 400 mg tablet 400 mg PO TID PRN fever or pain 04/13/24 #30 tabs Allergies Allergy/AdvReac Type Severity Reaction Status Date / Time No Known Allergies Allergy Verified 04/13/24 19:10 Review of Systems Review of Systems Yes all other systems are reviewed and are negative [facility] Past Medical History Medical History Hypertension Hyponatremia Transaminitis Diabetes mellitus Acute prostatitis Acute pyelonephritis Acidosis, lactic Leukocytosis Fever CAD (coronary artery disease) Diabetes Social History Social History Household Members: None Housing: Apartment Do you presently have visiting nurse or other home services: No Alcohol intake: current Alcohol intake frequency: a few times a week Alcohol type: beer Patient Tobacco Use Status: Never used Tobacco service: No Current occupational status: disabled Physical Exam ED Vital Signs: Vital Signs - 24 hr 04/13/24 19:03 Temperature 97.9 F Pulse Rate 63 Respiratory Rate 16 Blood Pressure 156/71 H Pulse Oximetry 99 Oxygen Delivery Method Room Air BMI result Body Mass Index 24.2 vital signs revealed elevated blood pressure otherwise unremarkable Exam: General: Awake, alert in no distress Head: Normocephalic, atraumatic EENT: PERRL, Lids normal, sclera normal, conjunctiva normal, nose normal , ears normal, throat without erythema or exudates Neck: Supple, no adenopathy Lung: breath sounds symmetric, no wheezing, rales or rhonchi Chest: symmetric movement, nontender Heart: regular rate and rhythm, normal S1, S2 no murmurs or rubs Abdomen: soft, non-tender, nondistended, normal bowel sounds Back: no vertebral tenderness, patient has tenderness with palpation over the right paraspinal muscles with spasm of these muscles, negative straight leg raises bilaterally, the patient is able to stand and walk without any difficulty Extremities: no deformities, moves all extremities symmetrically Neuro: Awake, alert, oriented, normal speech, cranial nerves intact, moves all extremities symmetrically Psych: Pleasant, cooperative Course Course Course Narrative: This is a Rapid Medical Exam performed in triage by Nasra Gibson PA-C. Full HPI, ROS and PE to be performed by primary ED provider. 69-year-old [place]ian-speaking male with a past medical history of HTN presenting to the ED c/o constant R flank pain x last night. denies radiation of pain, urinary sx. PE: Abdomen is soft, nontender. No rash. +R lumbar MSK ttp. ambulating with steady gait Plan: labs, UA Medical Decision Making Medical Decision Making [facility] Narrative: 69-year-old male with history of hypertension, hyponatremia, pyelonephritis, coronary disease, diabetes who presents emergency department for evaluation gradual onset constant, throbbing,right flank/ lower back pain 8/10with symptoms coming on gradually last night with no other concerning symptoms. vital signs revealed an elevated blood pressure otherwise unremarkable. Physical examination revealed no point vertebral tenderness but the patient did have tenderness palpation of the right paraspinal muscles in lumbar sacral region with spasm of these muscles. Differential diagnosis: Includes but is not limited to Musculoskeletal sprain, musculoskeletal strain, renal colic, ureteral stone, urinary tract infection, pyelonephritis, electrolyte abnormalities, anemia Course: My independent interpretation patient's laboratory evaluation is as follows: Normal sick anemia with an H&H of 12.336.0. Elevated glucose 186. Urinalysis was positive for glucose and leukocyte esterase. Microscopic revealed no bacteria and no evidence for an infection. CT scan of the patient's abdomen pelvis without IV contrast did not reveal any clear etiology for the patient's pain, there were no ureteral stones noted. Patient does have a large prostate. Given the patient's negative workup, I suspect the patient's pain is consistent with musculoskeletal pain I did discuss this with the patient. The patient was treated with Toradol 60 mg IM with improvement of his pain. Patient was discharged home and advised to take Tylenol ibuprofen for pain. He is also prescribe Flexeril 10 mg pills 3 times a day as needed for pain / spasm. He was given printed and verbal instructions prior to discharge. Admission/Observation Consideration of admission/observation: Escalation of care including admission/observation considered ( yes) Lab Data MDM Lab Attestation statement: I reviewed the patient's lab results. 04/13/24 19:59 04/13/24 19:59 Labs: Lab Results 04/13/24 04/13/24 Range/Units 19:59 20:39 WBC 7.5 (4.8-10.8) X10*3/uL RBC 4.03 L D (4.60-5.80) X10*6/uL Hgb 12.3 L (14.0-18.0) g/dl Hct 36.6 L (42.0-52.0) % MCV 90.8 (80.0-98.0) fL MCH 30.5 (27.0-33.0) pg MCHC 33.6 (31.0-36.0) g/dl RDW 13.2 (11.0-16.0) % Plt Count 208 (160-400) X10*3/uL MPV 9.4 (9.4-12.4) fL Immature Gran % (Auto) 0.1 (0.0-0.4) % Neut % (Auto) 54.5 (45-73) % Lymph % (Auto) 34.0 (20-40) % [place] % (Auto) 8.6 (2-11) % Eos % (Auto) 2.3 (0-4) % Baso % (Auto) 0.5 (0-2) % Lymph # (Auto) 2.5 (1.2-4.9) X10*3/uL [place] # (Auto) 0.6 (0.1-1.2) X10*3/uL Eos # (Auto) 0.2 (0.0-0.4) X10*3/uL Baso # (Auto) 0.0 (0.0-0.2) X10*3/uL Abs Immat Gran (auto) 0.01 (0.00-0.03) X10*3/uL Absolute Neuts (auto) 4.1 (2.0-8.3) x10*3/uL Absolute Nucleated RBC 0.000 (0.0-0.012) X10*3/uL Nucleated RBC % (auto) 0.0 (0.0-0.2) /100WBC Sodium 136 (135-145) mmol/L Potassium 4.0 (3.3-5.1) mmol/L Chloride 108 (96-108) mmol/L Carbon Dioxide 22 (22-29) mmol/L Anion Gap 10 L (12-20) BUN 19 H (9-16) mg/dL Creatinine 0.96 (0.5-1.4) mg/dL Estim Creat Clear Calc 63.6 Estimated GFR > 60 Random Glucose 186 H (60-115) mg/dL Calcium 8.3 L (8.4-10.2) mg/dL Magnesium 1.9 (1.6-2.6) mg/dL Total Bilirubin 0.2 (0.0-1.0) mg/dL Direct Bilirubin < 0.2 (0.0-0.5) mg/dL AST 13 (5-37) U/L ALT 8 (0-40) U/L Alkaline Phosphatase 41 (39-117) U/L Total Protein 6.8 (6.5-8.0) g/dL Albumin 3.8 (3.5-5.0) g/dL Lipase 43 (8-78) U/L Urine Color Yellow Urine Appearance Clear Urine pH 7.0 (5.0-9.0) Ur Specific [place] 1.020 (1.005-1.025) Urine Protein Negative (Neg-Trace) mg/dL Urine Glucose (UA) 500 H (Negative) mg/dL Urine Ketones Negative (Negative) mg/dL Urine Blood Negative (Negative) Urine Nitrite Negative (Negative) Ur Leukocyte Esterase Trace H (Negative) Urine RBC 0-2 (0-2) /HPF Urine WBC 0-5 (0-5) /HPF Ur Squamous Epith Cells 0-2 (0-2) /HPF Urine Bacteria None Seen (None Seen) Hyaline Casts 0-2 (0-2) /LPF Radiology Impression Discussion of test interpretation with radiology: I have reviewed the radiologist's reading. Radiologist Impression: CT abdomen and pelvis without contrast Comparison: CT/REG/OR/SR - CT ABDOMEN PELVIS WO IV CON - 11/05/22 13:[address]/OR/SR - CT ABDOMEN PELVIS W CON - 04/24/21 19:04 EST Findings: No hydronephrosis or ureteral stone. 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 Left nephrolithiasis measures 3 mm. No bladder stone. Wall thickening of the bladder, also present on the prior studies. The prostate measures 5.1 cm in transverse dimension with intravesicular extension No consolidation at the lung bases. Underdistended gallbladder without gallstones visible on CT. Right renal cyst. Subcentimeter hyperattenuating right renal lesion, indeterminate. The other solid organs are normal. No bowel wall thickening or dilation. A normal appendix is visualized measuring default valuemm, containing intraluminal air and without periappendiceal stranding. No aneurysm. Severe calcified atherosclerotic disease. No lymphadenopathy. No ascites. No acute fracture. Impression: No hydronephrosis, ureteral or bladder stone. Chronic wall thickening of the bladder with enlargement of the prostate an intravesicular extension likely indicates chronic outlet obstruction. This document has been electronically signed by: Clementina Chao MD on 04/13/2024 22:10:02 Prescription Management I considered prescription management with: Other ( Anti spasmodic: Flexeril) Chronic Conditions Patient?s care impacted by: Diabetes and Hypertension Medications Administered Discontinued Medications Generic Name Dose Route Start Last Admin Trade Name Freq PRN Reason Stop Dose Admin Ketorolac Tromethamine 60 mg 04/13/24 21:12 04/13/24 21:23 Ketorolac Tromethamine 60 Mg/2 Ml Vial IM 04/13/24 21:13 60 mg ONCE ONE Administration Discharge Plan Discharge Clinical Impression: Right lumbar pain Patient Disposition: Home, Self-Care Instructions: Acute Low Back Pain (ED) Additional Instructions: Your blood work and urine tests were normal which is reassuring The CT scan of your abdomen pelvis without IV contrast did not reveal a clear cause for your pain At this time I believe that your pain is due to a sprain and spasm of the muscles of your right lower back Insert pain medication Take ibuprofen for 400 mg pills, 1 pills every 6 hours as needed for pain or fever. Take Tylenol (acetaminophen) 500 mg pills, 2 pills every 6 hours as needed for pain or fever Take Flexeril (cyclobenzaprine) 5 mg pills, 1 pill every 6 hours as needed for pain or spasm. ?This medication will make you sleepy. ?Do not drive or work while taking this medication. Follow-up with your doctor in 2 days. Please return to the emergency department if your symptoms get worse or if you develop any symptoms that are concerning to you. Prescriptions: New acetaminophen [Tylenol Extra Strength] 500 mg tablet 1,000 mg PO Q6H PRN (Reason: fever or pain) Qty: 20 0RF ibuprofen 400 mg tablet 400 mg PO TID PRN (Reason: fever or pain) Qty: 30 0RF cyclobenzaprine 5 mg tablet 5 mg PO TID PRN (Reason: muscle spasm or pain) Qty: 14 0RF No Action finasteride 5 mg tablet 5 mg PO DAILY 90 Days Qty: 90 1RF metformin 500 mg tablet 2 tab PO BID amlodipine 5 mg tablet 1 tab PO DAILY aspirin 81 mg tablet,chewable 1 tab PO DAILY lisinopril 5 mg tablet 1 tab PO DAILY metoprolol succinate 25 mg tablet extended release 24 hr 1 tab PO DAILY ezetimibe 10 mg tablet 1 tab PO DAILY ketorolac 0.5 % drops 1 drp ophthalmic-Left TID rosuvastatin 10 mg tablet 10 mg PO QAM Jardiance 10 mg tablet 10 mg PO QAM lidocaine [Lidocaine Pain Relief] 4 % Adhesive Patch,Medicated 1 patch transdermal DAILY Qty: 10 0RF Protocol: Apply to: Apply to: Affected area cyclobenzaprine 5 mg Tablet 5 mg PO TID Qty: 12 0RF insulin glargine [Lantus Solostar U-100 Insulin] 100 unit/mL (3 mL) insulin pen 20 unit subcut QPM Qty: 15 0RF (DME) pen needle, diabetic 32 gauge x 1/4 needle Qty: 100 0RF Rx Instructions: Use four times a day or as directed. (DME) lancets [TRUEplus Lancets] 33 gauge misc See Rx Instructions topical .MEDSUPPLY Qty: 100 Rx Instructions: As directed (DME) FreeStyle Lite Strips Strip See Rx Instructions Not Applicable TID Qty: 10 Rx Instructions: As directed cholecalciferol (vitamin D3) 50 mcg (2,000 unit) tablet 50 mcg PO DAILY Interventions: ED Discharge Assessment Last Done: 04/14/24 00:21 Discharge Date/Time: 04/14/24 00:21 Print Language: [place]ian
[2024-04-13 20:02] LABS: MANUAL DIFF FLAG NO
[2024-04-13 20:03] LABS: Basophils Percent Auto 0.5 % (0-2); Eosinophils Absolute Auto 0.2 X10*3/uL (0.0-0.4); Eosinophils Percent Auto 2.3 % (0-4); Hematocrit 36.6 % (42.0-52.0); Hemoglobin 12.3 g/dl (14.0-18.0); Imm Gran Abs Auto 0.01 X10*3/uL (0.00-0.03); Imm Gran Pct Auto 0.1 % (0.0-0.4); Lymphocytes Absolute Auto 2.5 X10*3/uL (1.2-4.9); Mean Corpuscular HGB Conc 33.6 g/dl (31.0-36.0); Mean Corpuscular Hemoglobin 30.5 pg (27.0-33.0); Mean Corpuscular Volume 90.8 fL (80.0-98.0); Mean Platelet Volume 9.4 fL (9.4-12.4); Monocytes Absolute Auto 0.6 X10*3/uL (0.1-1.2); Monocytes Percent Auto 8.6 % (2-11); Neutrophils Absolute Auto 4.1 x10*3/uL (2.0-8.3); Neutrophils Percent Auto 54.5 % (45-73); Platelet Count 208 X10*3/uL (160-400); Red Blood Count 4.03 X10*6/uL (4.60-5.80); Red Cell Distribution Width 13.2 % (11.0-16.0); White Blood Count 7.5 X10*3/uL (4.8-10.8)
[2024-04-13 20:18] LABS: Alanine Aminotransferase 8 U/L (0-40); Albumin Level 3.8 g/dL (3.5-5.0); Alkaline Phosphatase 41 U/L (39-117); Anion Gap 10 (12-20); Aspartate Amino Transferase 13 U/L (5-37); Bilirubin Direct < 0.2 mg/dL (0.0-0.5); Bilirubin Total 0.2 mg/dL (0.0-1.0); Blood Urea Nitrogen 19 mg/dL (9-16); Calcium 8.3 mg/dL (8.4-10.2); Carbon Dioxide 22 mmol/L (22-29); Chloride 108 mmol/L (96-108); Creatinine Clr Calc Pharmacy 63.6; Estimated Glomerular Filt Rate > 60; Glucose Random 186 mg/dL (60-115); Lipase 43 U/L (8-78); Magnesium 1.9 mg/dL (1.6-2.6); Sodium 136 mmol/L (135-145); Total Protein 6.8 g/dL (6.5-8.0)
--- OUTSIDE RECORDS SUMMARY | 2024-04-13 20:34 | XMS_ITS | Clinical Summary ---
Author Organization [employer] Address [address] 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 Do not crush, chew, or split. 30 tablet 2 01/19/20 23 Active rosuvastatin (Crestor) 10 MG tabletIndications: Coronary artery disease involving [place] mills coronary artery of bay mills heart without angina pectoris Take 1 tablet (10 mg) by mouth in the morning. 30 tablet 11 01/21/20 23 Active Aspirin Low Dose 81 MG chewable tablet CHEW 1 TABLET BY MOUTH EVERY MORNING 90 tablet 3 07/06/19 24 Active ketorolac (Acular) 0.5 % ophthalmic solution PLACE 1 DROP IN THE AFFECTED EYE THREE TIMES DAILY DIRECTED STARTING 2 DAYS BEFORE YOUR SURGERY, CONTINUE DIRECTED 05/12/19 24 Active Brilinta 90 MG tablet TAKE 1 TABLET BY MOUTH TWICE DAILY IN THE MORNING AND IN THE EVENING 180 tablet 11 07/07/19 24 Active Alcohol Swabs padsIndications:Ty pe 2 diabetes mellitus with hyperlipidemia (CMS/HCC) (CMS/HCC) 1 each if needed (to clean skin). 100 each 07/24/19 24 Active FreeStyle lancetsIndications :Type 2 diabetes mellitus with hyperlipidemia (CMS/HCC) (CMS/HCC) 1 each by Other route 2 times daily. 100 each 07/24/19 24 025 Active FREESTYLE LITE test stripIndications:T ype 2 diabetes mellitus with hyperlipidemia (CMS/HCC) (CMS/HCC) Use to check blood sugar twice daily or more as needed 100 each 07/24/19 24 Active Blood Glucose Monitoring Suppl (FreeStyle Lite) w/Device kitIndications:Typ e 2 diabetes mellitus with hyperlipidemia (CMS/HCC) (CMS/HCC) 1 each Once per day. 1 kit 07/24/19 24 Active metoprolol succinate XL (Toprol-XL) 25 MG 24 hr tablet TAKE 1 TABLET BY MOUTH EVERY DAY 90 tablet 1 08/15/19 24 Active amLODIPine (Norvasc) 5 MG tablet TAKE 1 TABLET BY MOUTH EVERY DAY 90 tablet 1 08/15/19 24 Active metFORMIN (Glucophage) 500 MG tablet TAKE 2 TABLETS BY MOUTH TWICE DAILY IN THE MORNING AND EVENING WITH FOOD 360 tablet 1 08/15/19 24 Active pen needle 32G x 4 mm miscIndications:Ty pe 2 diabetes mellitus with hyperlipidemia (CMS/HCC) (CMS/HCC) Use to inject insulin daily as needed 100 each 3 08/16/19 24 Active ezetimibe (Zetia) 10 MG tabletIndications: Type 2 diabetes mellitus with hyperlipidemia (CMS/HCC) (CMS/HCC) Take 1 tablet (10 mg) by mouth in the morning. 90 tablet 1 11/01/19 24 Active Lantus SoloStar 100 UNIT/ML penIndications:Typ e 2 diabetes mellitus with hyperlipidemia (CMS/HCC) (CMS/HCC) Inject 26 Units under the skin Once daily. 15 mL 1 03/08/20 24 Active losartan (Cozaar) 50 MG tabletIndications: Hypertension associated with diabetes (CMS/HCC) (CMS/HCC) Take 1 tablet (50 mg) by mouth Once per day. 90 tablet 1 03/08/20 24 025 Active sildenafil (Viagra) 50 MG tabletIndications: Vasculogenic erectile dysfunction, unspecified vasculogenic erectile dysfunction type Take 1 tablet (50 mg) by mouth if needed each day for erectile dysfunction. 30-60min b/f intercourse 20 tablet 03/08/20 24 Active Active Problems Problem Noted Date Diagnosed Date Hospital discharge follow-up 07/06/2023 Assessment & Plan (07/06/2023 11:03 AM EDT): Patient here for HDF. Admitted to [facility] where he was admitted from 07/02-07/04/2023 after he presented for evaluation of left shoulder pain, urinary frequency, urgency and weight loss. As part of his work up he had a CT of shoulder that was negative for acute fracture or dislocation. Patient was treated for musculoskeletal pain with oxycodone and cyclobenzaprine and discharge home with recommendation for home PT. During this hospitalization he was noted to have LISSET secondary to dehydration with Scr initially at 2.12 mg/dl. LISSET this resolved with IVF and is now back at baseline Scr down to 1.05 While in the Hospital patient reported chest pain, troponin's were WNL and EKG w/o acute ischemic changes. Patient discharged home with lidocaine patches and cyclobenzaprine for pain. Of note pt is already under the care of cardiology Dr Bojorquez, who recently did a Stress test and ECHO. Preop examination 05/20/2023 Assessment & Plan (05/22/2023 5:22 PM EDT): RCR I Going for low risk procedure Following recently since 03/2023 with employment service specialist for CP present for 2 mo ago but denies currently to have symptoms -cards records obtained TTE 05/09/2023 normal ,EF 50-55%, no valvular pathology . EKG 2023 NSR, no ischemic findings , Exercise stress test 05/09/2023 TWI in aVL and downsloping V2 05/09/2023 hb1AC 7.3 -I called today his employment service specialist at -Dr Darling to discuss recent abnormal stress test and if ok for surgery or to hold if has planned further cardiac testing as well rec for his ASA and brillinta -I was able to speak with his programs assistant who spoke w employment service specialist and was informed pt is ok to have procedure and recommended pt to take ASA and brilinta and to continue prior procedure -pt to take BB( metoprolol) in am of surgery ,hold rest of meds on morning of procedure -I informed pt about recommendations . This preop note to be faxed to his surgeon Mild nonproliferative diabet ic retinopathy of both eyes without macular edema associated with type 2 diabetes mellitus 05/09/2023 Overview (05/09/2023): Eye exam 02/08/2023 [facility] Screen for colon cancer 05/09/2023 Overview (05/09/2023): 04/26/12 ([place] [facility] lipoma of splenic flexure. 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 ( Although the Discharge summary does not mention lantus on his discharge med list ) BG today is 404 ( Patient was given rapid insulin 8 units ) Last A1c 07/02/2023 was 10.7 He reports that he is taking Metformin 1 Gram BID and Lantus 20 units subcutaneous qhs Previously he was taking Trulicity 1.5mg wkly but was discontinued d/t nausea, decreased appetite. Pt discontinued Jardiance on his own due to c/o frequent urination although I tried to counseled him about the the diuresis caused by Hyperglycemia, he does not want to restart. Plan: Increase Lantus 24 units subcutaneous at bedtime and given his high readings this seems appropriate at the moment. I do not want to go any higher until he brings his glucometer. He promised to start checking his blood sugars twice a day. Follow up with PCP in 1 to 2 weeks to review his glucometer and continue to make adjustments, might consider a different GLP1 once hyperglycemia improved. Encounters Date Type Department Care Team Description 04/13/2024 Orders Only GENERIC EXTERNAL DATA DEPARTMENT Provider, Generic External Data 03/26/[address] [address] [place] AngelikaJODIE bryant May recall 03/08/2024 11:15 AM EST Office Visit [address] [address] Davina Hooker ANP Hypertension associated with diabetes (CMS/HCC) (CMS/HCC) (Primary Dx); Type 2 diabetes mellitus with hyperlipidemia (CMS/HCC) ; Encounter for immunization; Vasculogenic erectile dysfunction, unspecified vasculogenic erectile dysfunction type 03/08/2024 Travel 02/23/2024 Patient Outreach [address] [address] Davina Hooker ANP Pre-visit Planning (Pre-visit planning - unable to leave a message phone number has been changed or disconnected. / ) from Last 3 Months Immunizations Name Administration Dates Next Due Influenza High-dose Quadriva lent Preservative Free 01/10/2023 Influenza injectable quadriv alent preservative free 03/04/2021,03/15/2019,05/24/2018 Influenza, High Dose Seasona l, Preservative Free 03/08/2024 Moderna Covid-19 Vaccine 12+ 03/04/2021,08/16/19 21,07/11/2020 Moderna Covid-19 Vaccine 6+ Bivalent 08/22/2022 Pfizer Covid-19 Vaccine 12+ 03/08/2024 Pneumococcal Conjugate PCV 13 05/24/2018 Pneumococcal Conjugate PCV 20 01/10/2023 Pneumococcal Polysaccharide PPSV23 11/17/2017 Tdap 03/15/2019 Zoster, Recombinant 09/18/2018 Zoster, live 04/02/2015 Social History Tobacco Use Types Packs/Day Years Used Date Smoking Tobacco: Never Passive Smoke Exposure: Never Smokeless Tobacco: Never Tobacco Cessation:Counseling Given: Not Answered Alcohol Use Standard Drinks/Week Comments Not Currently 0 (1 standard drink = 0.6 oz pur e alcohol) Alcohol Answer Date Recorded Frequency of Alcohol Consumption Not on file 05/09/2023 Average Number of Drinks Not on file 024 Frequency of Binge Drinking Not on file 04/14 Score 0 05/09/2023 Depression Answer Date Recorded Patient Health Questionnaire-9 Score 0 05/09/2023 Patient Health Questionnaire-9 Score 0 05/09/2023 Last PHQ-9: Questionnaire Data Not on file 0 05/09/2023 Housing Stability Answer Date Recorded What is your housing situation today? I have eyadgissell fink 12/26/[address] you li ve. Do you have problems with any of the following? None of the above 12/26/2022 Food Insecurity Answer Date Recorded Within the past 12 months, y ou worried that your food would run out before you got money to buy more: Never True 12/26/2022 Within the past 12 months,th e food you bought just didn't last and you didn't have enough money to get more: Never True Transportation Answer Date Recorded In the past 12 months, has l ack of transportation kept you from medical appts, meetings, work or from getting things needed for daily living? No 12/26/2022 Utilities Answer Date Recorded In the past 12 months, has t he electric, gas, oil or water company threatened to shut off services in your home? No 12/26/2022 Depression Answer Date Recorded Patient Health Questionnaire-2 Score 0 05/09/2023 Sex and Gender Information Value Date Recorded Sex Assigned at Male 01/10/2022 10:35 AM EDT Legal Sex Male 10:35 AM EDT Gender Identity Male 01/10/2022 10:35 AM EDT Sexual Orientation Straight 01/10/2022 10 :35 AM EDT Last Filed Vital Signs Vital Sign Reading Time Taken Comments Blood Pressure 132/85 03/08/2024 12:56 PM EST Pulse 53 03/08/2024 11:19 AM EST Temperature 36.4 ??C (97.5 ??F) 03/08/2024 11:[address] Respiratory Rate 14 03/08/2024 11:19 AM EST Oxygen Saturation 98% 03/08/2024 11:19 AM EST Inhaled Oxygen Concentration - - Weight 71.3 kg (157 lb 3.2 oz) 03/08/2024 11:19 AM EST Height 167.6 cm (5' 6 ) 08/24/2023 1:59 PM EDT Body Mass Index 25.37 08/24/2023 1:59 PM EDT Plan of Treatment Health Maintenance Due Date Last Done Comments CT Colonography 1955 Dental Oral Exam 1955 Dental Prophylaxis 1955 Dental X-Ray: Full Mouth 1955 FIT DNA/Cologuard 1955 FIT 1955 FOBT 1955 Sigmoidoscopy 1955 RSV Patients and Patients Aged 60 years or older (1 - Risk 60-74 years 1-dose series) 2013 Zoster Vaccines (3 of 3) 11/13/2018 09/18/2018, 03/14 Colonoscopy 04/26/2022 04/26/2012 Colorectal Cancer Screening 04/26/2022 Diabetes: Urine Protein Screening 02/17/2023 02/17/2022, 08/25/2020, 03/18/2019 Lipid Panel 02/17/2023 02/17/2022, 08/25/2020 Dental X-Ray: Bitewings 05/27/2023 05/25/2022 Eye Exam 02/09/2024 02/08/2023, 01/12, 02/08/2023, Additional history exists Alcohol/Substance Use Screening 05/09/2024 05/09/2023 Depression Screening 05/09/2024 05/09/2023, 05/09/19 24 Diabetes: Foot Exam 05/09/2024 05/09/2023, 05/09/2023, 05/09/2023, Additional history exists SDOH Screening 05/09/2024 05/09/2023 Diabetes: Hemoglobin A1C 06/06/2024 024, 07/02/2023, 05/09/2023, Additional history exists Tobacco Screening 03/08/2025 03/08/2024 DTaP/Tdap/Td Vaccines (2 - Td or Tdap) 03/15/2029 03/15/2019 Hepatitis C Screening Completed 02/17/2022, 021 Pneumococcal Vaccine: 50+ Years Completed 01/10/2023, 05/24/2018, 11/17/2017 COVID-19 Vaccine Completed 03/08/2024, 02/2023, 03/04/2021, Additional history exists Influenza Vaccine Completed 03/08/2024, , 03/04/2021, Additional history exists HIB Vaccines Aged Out No longer eligi ble based on patient's age to complete this topic HPV Vaccines Aged Out No longer eligi ble based on patient's age to complete this topic Hepatitis A Vaccines Aged Out No long er eligible based on patient's age to complete this topic Hepatitis B Vaccines Aged Out No long er eligible based on patient's age to complete this topic IPV Vaccines Aged Out No longer eligi ble based on patient's age to complete this topic Meningococcal Vaccine Aged Out No lexi july eligible based on patient's age to complete this topic RSV under 20 months Aged Out No longe r eligible based on patient's age to complete this topic Rotavirus Vaccines Aged Out No longer eligible based on patient's age to complete this topic Goals Goal Patient Goal Type Associated Problems Recent Progress Patient-Stated? Author Blood Pressure < 140/90 Blood Pressure 132/85(03/08 12:56 PM EST) No Remy Nation, PharmSilver Hemoglobin A1c < 7 Result Component 8.3(03/08/20 11:35 AM EST) No Remy Nation, John Note: Goal of 8% is reasonable given the patients age, cognitive impairment, and comorbidities Procedures Procedure Name Priority Date/Time Associated Diagnosis Comments LIPASE Routine 04/13/2024 7:59 PM EST MAGNESIUM Routine 04/13/2024 7:59 PM EST BASIC METABOLIC PANEL Routine 04/13/2024 7:59 PM EST HEPATIC FUNCTION PANEL Routine 04/13/2024 7:59 PM EST CBC WITH AUTO DIFFERENTIAL Routine 04/13/2024 7:59 PM EST POCT GLYCATED HEMOGLOBIN, TOTAL Routine 03/08/2024 11:35 AM EST Hypertension associated with diabetes (CMS/HCC) (CMS/HCC) POCT GLUCOSE Routine 03/08/2024 11:31 AM EST Hypertension associated with diabetes (CMS/HCC) (CMS/HCC) BITEWING - SINGLE RADIOGRAPHIC IMAGE Routine 05/25/2022 3:00 PM EDT Acute periodontal abscess Caries of cervical margin of tooth HEPATITIS C AB W/REFL TO HCV RNA, QN, PCR Routine 02/17/2022 10:33 AM EST ALBUMIN, RANDOM URINE W/CREATININE Routine 02/17/2022 10:33 AM EST LIPID PANEL, STANDARD Routine 02/17/2022 10:33 AM EST HM COLONOSCOPY Routine 04/26/2012 from Last 3 Months or Most Recently Relevant to Health Maintenance Results * (ABNORMAL) CBC auto differential (04/13/2024 7:59 PM EST) White Blood Count 7.5 4.8 - 10.8 X10*3/uL [facility] Red Blood Count 4.03(L) 4.60 - 5.80 X10*6/uL [facility] Hemoglobin 12.3(L) 14.0 - 18.0 g/dl [facility] Hematocrit 36.6(L) 42.0 - 52.0 % [facility] Mean Corpuscular Volume 90.8 80.0 - 98.0 fL [facility] Mean Corpuscular Hemoglobin 30.5 27.0 - 33.0 pg [facility] Mean Corpuscular HGB Conc 33.6 31.0 - 36.0 g/dl [facility] Red Cell Distribution Width 13.2 11.0 - 16.0 % [facility] Platelet Count 208 160 - 400 X10*3/uL [facility] Mean Platelet Volume 9.4 9.4 - 12.4 fL [facility] Neutrophils Percent Auto 54.5 45 - 73 % [facility] Imm Gran Pct Auto 0.1 0.0 - 0.4 % [facility] Lymphocytes Percent Auto 34.0 20 - 40 % [facility] Monocytes Percent Auto 8.6 2 - 11 % [facility] Eosinophils Percent Auto 2.3 0 - 4 % [facility] Basophils Percent Auto 0.5 0 - 2 % [facility] NRBC Pct Auto 0.0 0.0 - 0.2 /100WBC [facility] Neutrophils Absolute Auto 4.1 2.0 - 8.3 x10*3/uL [facility] Imm Gran Abs Auto 0.01 0.00 - 0.03 X10*3/uL [facility] Lymphocytes Absolute Auto 2.5 1.2 - 4.9 X10*3/uL [facility] Monocytes Absolute Auto 0.6 0.1 - 1.2 X10*3/uL [facility] Eosinophils Absolute Auto 0.2 0.0 - 0.4 X10*3/uL [facility] Basophils Absolute Auto 0.0 0.0 - 0.2 X10*3/uL [facility] NRBC Abs Auto 0.000 0.0 - 0.012 X10*3/uL [facility] 04/13/2024 7:59 PM EST 04/13/2024 8:01 PM EST us Generic External Data Provider LAB BLOOD ORDERAB LES Final Result Performing Organization Address [facility] Co de Phone Number [facility] [address] [place] [phone] * Magnesium (04/13/2024 7:59 PM EST) Magnesium 1.9 1.6 - 2.6 mg/dL [facility] 04/13/2024 7:59 PM EST 04/13/2024 8:01 PM EST us Generic External Data Provider LAB BLOOD ORDERAB LES Final Result Performing Organization Address [facility] Co de Phone Number [facility] [address] [place] [address] [phone] * Lipase (04/13/2024 7:59 PM EST) Pathologist [facility] Lipase 43 8 - 78 U/L [facility] 04/13/2024 7:59 PM EST 04/13/2024 8:01 PM EST Generic External Data Provider LAB BLOOD ORDERAB LES Final Result Performing Organization Address [facility]/ZIP Co de Phone Number [facility] [address] [place] [phone] * Hepatic Function Panel (04/13/2024 7:59 PM EST) [facility] Bilirubin, Total 0.2 0.0 - 1.0 mg/dL [facility] Bilirubin, Direct <0.2 0.0 - 0.5 mg/dL [facility] Aspartate Amino Transferase 13 5 - 37 U/L [facility] Alanine Aminotransferase 8 0 - 40 U/L [facility] Total Protein 6.8 6.5 - 8.0 g/dL [facility] Albumin Level 3.8 3.5 - 5.0 g/dL [facility] Alkaline Phosphatase 41 39 - 117 U/L [facility] 04/13/2024 7:59 PM EST 04/13/2024 8:01 PM EST Generic External Data Provider LAB BLOOD ORDERAB LES Final Result Performing Organization Address City/[facility]/ZIP Co de Phone Number [facility] [address] [place] [phone] * (ABNORMAL) Basic Metabolic Panel (04/13/2024 7:59 PM EST) Pathologist [facility] Sodium 136 135 - 145 mmol/L [facility] Potassium 4.0 3.3 - 5.1 mmol/L [facility] Chloride 108 96 - 108 mmol/L [facility] Carbon Dioxide 22 22 - 29 mmol/L [facility] Anion Gap 10(L) 12 - 20 [facility] Urea Nitrogen (BUN) 19(H) 9 - 16 mg/dL [facility] Creatinine, Serum 0.96 0.5 - 1.4 mg/dL [facility] Creatinine Clr Calc Pharmacy 63.6 [facility] Comment:eGFR (calculated fro m the MDRD study equation) and eCrCl(calculated from the Cockcroft-Gault equation) are based ondifferent parameters and may not yield comparable results.If eCrCl result is absurd, please check patient'sheight/weight. Estimated Glomerular Filt Rate >60 [facility] Comment:Chronic Kidney Disea se: Estimated GFR < 60 mL/min/[id number] Kidney Disease: Estimated GFR < 15 mL/min/1.73m2 Glucose 186(H) 60 - 115 mg/dL [facility] Calcium 8.3(L) 8.4 - 10.2 mg/dL [facility] 04/13/2024 7:59 PM EST 04/13/2024 8:01 PM EST us Generic External Data Provider LAB BLOOD ORDERAB LES Final Result [facility] [address] [place] [phone] * (ABNORMAL) POCT HGB A1C (03/08/2024 11:35 AM EST) Hemoglobin A1C 8.3(A) 4.0 - 6.0 % QC Media Lot # [id number] Lot# Expiration Date ,906 Blood 03/08/2024 11:3 5 AM EST us Davina Hooker ANP POINT OF CARE TEST ENTER/EDIT OR DERABLES Final Result * POCT Glucose (03/08/2024 11:31 AM EST) Glucose Blood, POC 160 60 - 200 mg/dL QC Media Lot # [id number] Lot# Expiration Date [id number] Blood Capillary blood specimen / Unknown 03/08/2024 11:31 AM EST Davina JUAN POINT OF CARE TEST ENTER/EDIT OR DERABLES Final Result * Albumin, Random Urine W/Creatinine (02/17/2022 10:33 AM EST) Creatinine, Random Urine 145 20 - 320 mg/dL [facility] Albumin, Urine 1.1 See Note: mg/dL [facility] Comment: Reference Range: Reference Range Not established Albumin/Creatinin e Ratio, Random Urine 8 <30 mcg/mg creat [facility] Comment: The ADA defines abnormalities in albumin excretion as follows: Albuminuria Category ?Result (mcg/mg creatinine) Normal to Mildly increased ?? <30 Moderately increased ? 30-299 Severely increased ? > OR = 300 The ADA recommends that at least two of three specimens collected within a 3-6 month period be abnormal before considering a patient to be within a diagnostic category. 02/17/2022 10:3 3 AM EST 02/17/2022 10:33 AM EST Narrative [facility] - 02/23/2022 4:56 PM EST FASTING:YES FASTING: YES us Davina JUAN LAB URINE ORDERABLES Final Resul t [facility] [address], [place] [address] [facility] [address], [facility] [place] [address] * Hepatitis C Antibody with Reflex to HCV, RNA, Quantitative, Real-Time PCR (02/17/2022 10:33 AM EST) Hepatitis C Antibody NON-REACT PRAKASH NON-REACT PRAKASH [facility] Index 0.03 <1.00 [facility] Comment: HCV antibody was non-reactive. There is no laboratory evidence of HCV infection. In most cases, no further action is required. However, if recent HCV exposure is suspected, a test for HCV RNA (test code 77869) is suggested. For additional information please refer to http://[employer].Seratis/faq/ZDJ10e5 (This link is being provided for informational/ educational purposes only.) 02/17/2022 10:3 3 AM EST 02/17/2022 10:33 AM EST Narrative [facility] - 02/23/2022 4:56 PM EST FASTING:YES FASTING: YES [facility] LAB BLOOD ORDERABLES Final Resul t [facility] [address], [place] [address] [facility] [address], [facility] [place] [address] * Lipid Panel, Standard (02/17/2022 10:33 AM EST) [facility] Cholesterol, Total 119 <200 mg/dL [facility] HDL Cholesterol 49 > OR = 40 mg/dL [facility] Triglycerides 131 <150 mg/dL [facility] LDL Cholesterol 49 mg/dL (calc) [facility] Comment: Reference range: <100 Desirable range <100 mg/dL for primary prevention; ?? <70 mg/dL for patients with CHD or diabetic patients with > or = 2 CHD risk factors. LDL-C is now calculated using the Jakub-Tasneem calculation, which is a validated novel method providing better accuracy than the Friedewald equation in the estimation of LDL-C. Jakub SS et al. ANISH. 2013;310(19): 1478-8199 (http://education.Sympler.JustFamily/faq/EHO001) Chol/HDLC Ratio 2.4 <5.0 (calc) [facility] Non-HDL Cholesterol 70 <130 mg/dL (calc) [facility] Comment: For patients with diabetes plus 1 major ASCVD risk factor, treating to a non-HDL-C goal of <100 mg/dL (LDL-C of <70 mg/dL) is considered a therapeutic option. 02/17/2022 10:3 3 AM EST 02/17/2022 10:33 AM EST Narrative [facility] - 02/23/2022 4:56 PM EST FASTING:YES FASTING: YES [facility] Hooker [facility] LAB BLOOD ORDERABLES Final Resul t [facility] [address], [place] [address] [facility] [address], [place] [address] * Colonoscopy (04/26/2012) Colonoscopy Normal Normal Historical Provider MD HEALTH MAINTENANCE Final Result from Last 3 Months or Most Recently Relevant to Health Maintenance Insurance [facility] * Guarantor: Carlos Lopez Account Type Relation to Patient Date of Phone Billing Address Dental Self [address] [place] [address] [facility] Care 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
--- OUTSIDE RECORDS SUMMARY | 2024-04-13 20:34 | XMS_ITS | Encounter Summary ---
Author Organization [employer] Address [address] [place] [address] Care Team Providers Care Religious Education Director Name Role Phone Davina Hooker Primary Care Provider [phone] Remy Nation PharmD Unavailable Encounter Details Date Type Department Care Team (Late st Contact Info) Description 04/13/2024 Orders Only GENERIC EXTERNAL DATA DEPARTMENT Provider, Generic External Data Social History Tobacco Use Types Packs/Day Years Used Date Smoking Tobacco: Never Passive Smoke Exposure: Never Smokeless Tobacco: Never Alcohol Use Standard Drinks/Week Comments Not Currently [...] Orientation Straight 01/10/2022 10 :35 AM EDT documented as of this encounter Plan of Treatment Not on file documented as of this encounter Goals Goal Patient Goal Type Associated Problems Recent Progress Patient-Stated? Author Blood Pressure < 140/90 Blood Pressure 132/85(03/08 12:56 PM EST) No Remy Nation PharmD Hemoglobin A1c < 7 Result Component 8.3(03/08/20 11:35 AM EST) No Remy Nation PharmD Note: Goal of 8% is reasonable given the patients age, cognitive impairment, and comorbidities documented as of this encounter Procedures Procedure Name Priority Date/Time Associated Diagnosis Comments CBC WITH AUTO DIFFERENTIAL Routine 04/13/2024 7:59 PM EST MAGNESIUM Routine 04/13/2024 7:59 PM EST LIPASE Routine 04/13/2024 7:59 PM EST HEPATIC FUNCTION PANEL Routine 04/13/2024 7:59 PM EST BASIC METABOLIC PANEL Routine 04/13/2024 7:59 PM EST documented in this encounter Results * Lipase (04/13/2024 7:59 PM EST) Lipase 43 8 - 78 U/L [facility] 04/13/2024 7:59 PM EST 04/13/2024 8:01 PM EST us Generic External Data Provider LAB BLOOD ORDERAB LES Final Result [facility] [address] [place] [phone] * Magnesium (04/13/2024 7:59 PM EST) Magnesium 1.9 1.6 - 2.6 mg/dL [facility] 04/13/2024 7:59 PM EST 04/13/2024 8:01 PM EST us Generic External Data Provider LAB BLOOD ORDERAB LES Final Result [facility] [address] [place] [phone] * (ABNORMAL) Basic Metabolic Panel (04/13/2024 7:59 PM EST) Pathologist [facility] Sodium 136 135 - 145 mmol/L [facility] Potassium 4.0 3.3 - 5.1 mmol/L [facility] Chloride 108 96 - 108 mmol/L [facility] Carbon Dioxide 22 22 - 29 mmol/L [facility] Anion Gap 10(L) 12 - 20 [facility] Urea Nitrogen (BUN) 19(H) 9 - 16 mg/dL [facility] Creatinine, Serum 0.96 0.5 - 1.4 mg/dL [facility] Creatinine Clr Calc Pharmacy 63.6 [facility] Comment:eGFR (calculated fro m the MDRD study equation) and eCrCl(calculated from the Cockcroft-Gault equation) are based ondifferent parameters and may not yield comparable results.If eCrCl result is absurd, please check patient'sheight/weight. Estimated Glomerular Filt Rate >60 [facility] Comment:Chronic Kidney Disea se: Estimated GFR < 60 mL/min/[id number] Kidney Disease: Estimated GFR < 15 mL/min/1.73m2 Glucose 186(H) 60 - 115 mg/dL [facility] Calcium 8.3(L) 8.4 - 10.2 mg/dL [facility] 04/13/2024 7:59 PM EST 04/13/2024 8:01 PM EST Generic External Data Provider LAB BLOOD ORDERAB LES Final Result Performing Organization Address [facility] Co de Phone Number [facility] [address] [place] [phone] * Hepatic Function Panel (04/13/2024 7:59 PM EST) [facility] Bilirubin, Total 0.2 0.0 - 1.0 mg/dL [facility] Bilirubin, Direct <0.2 0.0 - 0.5 mg/dL [facility] Aspartate Amino Transferase 13 5 - 37 U/L [facility] Alanine Aminotransferase 8 0 - 40 U/L [facility] Total Protein 6.8 6.5 - 8.0 g/dL [facility] Albumin Level 3.8 3.5 - 5.0 g/dL [facility] Alkaline Phosphatase 41 39 - 117 U/L [facility] 04/13/2024 7:59 PM EST 04/13/2024 8:01 PM EST Generic External Data Provider LAB BLOOD ORDERAB LES Final Result Performing Organization Address [facility] Phone Number [facility] [address] [place] [phone] * (ABNORMAL) CBC auto differential (04/13/2024 7:59 PM EST) [facility] Signature White Blood Count 7.5 4.8 - 10.8 X10*3/uL [facility] Red Blood Count 4.03(L) 4.60 - 5.80 X10*6/uL [facility] Hemoglobin 12.3(L) 14.0 - 18.0 g/dl [facility] Hematocrit 36.6(L) 42.0 - 52.0 % [facility] Mean Corpuscular Volume 90.8 80.0 - 98.0 fL [facility] Mean Corpuscular Hemoglobin 30.5 27.0 - 33.0 pg [facility] Mean Corpuscular HGB Conc 33.6 31.0 - 36.0 g/dl [facility] Red Cell Distribution Width 13.2 11.0 - 16.0 % [facility] Platelet Count 208 160 - 400 X10*3/uL [facility] Mean Platelet Volume 9.4 9.4 - 12.4 fL [facility] Neutrophils Percent Auto 54.5 45 - 73 % [facility] Imm Gran Pct Auto 0.1 0.0 - 0.4 % [facility] Lymphocytes Percent Auto 34.0 20 - 40 % [facility] Monocytes Percent Auto 8.6 2 - 11 % [facility] Eosinophils Percent Auto 2.3 0 - 4 % [facility] Basophils Percent Auto 0.5 0 - 2 % [facility] NRBC Pct Auto 0.0 0.0 - 0.2 /100WBC [facility] Neutrophils Absolute Auto 4.1 2.0 - 8.3 x10*3/uL [facility] Imm Gran Abs Auto 0.01 0.00 - 0.03 X10*3/uL [facility] Lymphocytes Absolute Auto 2.5 1.2 - 4.9 X10*3/uL [facility] Monocytes Absolute Auto 0.6 0.1 - 1.2 X10*3/uL [facility] Eosinophils Absolute Auto 0.2 0.0 - 0.4 X10*3/uL [facility] Basophils Absolute Auto 0.0 0.0 - 0.2 X10*3/uL [facility] NRBC Abs Auto 0.000 0.0 - 0.012 X10*3/uL [facility] 04/13/2024 7:59 PM EST 04/13/2024 8:01 PM EST us Generic External Data Provider LAB BLOOD ORDERAB LES Final Result [facility] [address] [place] [phone] documented in this encounter Visit Diagnoses Not on filedocumented in this encounter Additional Health Concerns Assessment Noted Time PHQ-9 Depression Total Score: 0 05/09/19 24 11:22 AM EST documented as of this encounter Care Teams Religious Education Director Relationship Specialty Start Date End Date Davina Hooker ANP [address] [place] [address] PCP - General Family Medicine 03/31/20 Remy Nation, John [address] [place] [address] Pharmacist Internal Medicine 08/16/23 documented as of this encounter
--- OUTSIDE RECORDS SUMMARY | 2024-04-13 20:34 | XMS_ITS | Encounter Summary ---
Author Organization [employer] Address [address] [place] [address] Care Team Providers Care Qc Analyst Name Role Phone Davina Hooker Primary Care Provider Remy Nation PharmD Unavailable [phone] Reason for Visit * Reason Onset Date Comments May recall 03/26/2024 Encounter Details Date Type Department Care Team (Late st Contact Info) Description 03/26/2024 Telephone [facility] [address] [place], [place] [phone] China Hurtado [place] May recall Social History Tobacco Use Types Packs/Day Years [...] is your housing situation today? I have eyad fink 12/26/[address] you [...] AM EDT documented as of this encounter Miscellaneous Notes * Telephone Encounter - China Hurtado [place] - 03/26/2024 6:49 PM EST T/C to pt to schedule a recall for HTN/DM 30min. Number in chart is not I services. Mailed recall letter. documented in this encounter Plan of Treatment Not on [...] and comorbidities documented as of this encounter Visit Diagnoses Not on filedocumented in this encounter Additional Health Concerns Assessment Noted Time PHQ-9 Depression Total Score: 0 05/09/19 24 11:22 AM EST documented as of this encounter Care Teams Qc Analyst Relationship Specialty Start Date End Date Davina Hooker ANP [address] [place] [address] PCP - General Family Medicine 03/31/20 Remy Nation PharmD [address] [place] [address] Pharmacist Internal Medicine 08/16/23 documented as of this encounter
[2024-04-13 21:03] LABS: Appearance Urine Clear; Color Urine Yellow; Glucose Urine UA 500 mg/dL (Negative); Leukocyte Esterase Urine Trace (Negative); Nitrite Urine Negative (Negative); UMIC TRIGGER UACC YES; Urine Blood Negative (Negative); Urine Ketones Negative (Negative); Urine Protein Negative (Neg-Trace)
[2024-04-13 21:10] LABS: Bacteria Urine None Seen (None Seen); Hyaline Casts Urine 0-2 /LPF (0-2); RBC Urine 0-2 /HPF (0-2); Squamous Epithelial Cell Urine 0-2 /HPF (0-2); WBC Urine 0-5 /HPF (0-5)
[2024-04-13] MEDS: Ketorolac Tromethamine 60 MG/2 ML VIAL IM (21:23)
[2024-04-14 00:20] VITALS: BP 157/56; PULSE 51; RESP 16; TEMP 36.7; O2SAT 100
[2024-04-14 00:21] VITALS: BP 157/56; PULSE 51; RESP 16; TEMP 36.7; O2SAT 100
== END 2024-04-14 00:21 | disposition home or self-care (01) ==
PROVIDERS: Physician Assistant; Emergency Provider Emergency Medicine Emergency Medical Services
DX: M54.50 Low back pain, unspecified (principal); E11.9 Type 2 diabetes mellitus without complications; I10 Essential (primary) hypertension; Z79.84 Long term (current) use of oral hypoglycemic drugs; Z79.4 Long term (current) use of insulin; Z79.899 Other long term (current) drug therapy
CPT/HCPCS: 36415; 74176; 80048; 80076; 81001; 81003; 83690; 83735; 85025; 96372; 99284; J1885

== ENCOUNTER → 2024-04-13 21:11 | Outpatient (BNV) | payer OTHER, SELFPAY | PROVIDERS: Emergency Provider Emergency Medicine Emergency Medical Services; Visit Provider Radiology Diagnostic Radiology | DX: N32.89 Other specified disorders of bladder (principal); N40.0 Benign prostatic hyperplasia without lower urinary tract symptoms | CPT/HCPCS: 74176 ==